=== PATIENT | male | born 1950 | race Caucasian/White ===

== ENCOUNTER 2020-11-10 22:30 | Inpatient (IN) | payer MEDICARE ==
--- NOTE | 2020-11-10 22:44 | ED ---
General Adult HPI - General Stated complaint: Chest Pain Time Seen by Provider: 11/10/20 22:36 Source: patient, EMS Mode of arrival: EMS Limitations: no limitations - History of Present Illness Initial comments: This patient is a 70-year-old man is brought by ambulance to be evaluated for bilateral shoulder pain. The patient relates that the symptoms had come on in the early evening he states around dinnertime. Patient states that it came on after he had been out running errands with a friend. The patient describes the pain as a constant aching, and was accompanied by tingling to the bilateral hands. He did not note any anginal equivalents, no diaphoresis, dyspnea, nausea or vomiting, palpitations or syncope. EMS arrived and gave the patient fentanyl 50 g and he states that the pain had resolved. Onset/Timin -: hour(s) Location: left, right, upper extremity Radiation: non-radiation Quality: aching Consistency: constant, now resolved Improves with: medication Worsens with: none Associated Symptoms: denies other symptoms Treatments Prior to Arrival: other (fentanyl) - Related Data Home Medications Medication Instructions Recorded Confirmed Diphenoxylate HCl/Atropine 1 tab PO Q8H PRN 11/10/20 11/10/20 [Lomotil 2.5-0.025 mg Tablet] Fenofibrate Nanocrystallized 145 mg PO DAILY 11/10/20 11/10/20 [Fenofibrate] Losartan Potassium [Cozaar] 100 mg PO DAILY 11/10/20 11/10/20 Meloxicam [Mobic] 15 mg PO DAILY PRN 11/10/20 11/10/20 Omeprazole Magnesium 20 mg PO DAILY 11/10/20 11/10/20 Potassium Chloride ER [K-Dur 20] 20 meq PO DAILY 11/10/20 11/10/20 Terazosin HCl 5 mg PO DAILY 11/10/20 11/10/20 Tiotropium 2.5 Mcg/Puff [Spiriva 2 puff INHALATION RT-DAILY 11/10/20 11/10/20 Respimat 2.5 Mcg] Allergies Allergy/AdvReac Type Severity Reaction Status Date / Time No Known Allergies Allergy Verified 11/10/20 23:07 Review of Systems ROS Statement: Those systems with pertinent positive or pertinent negative responses have been documented in the HPI. ROS Other: All systems not noted in ROS Statement are negative. Constitutional: Denies: fever, chills Respiratory: Denies: cough, dyspnea Cardiovascular: Denies: chest pain, palpitations, edema, syncope Gastrointestinal: Denies: abdominal pain, nausea, vomiting Genitourinary: Denies: dysuria Musculoskeletal: Denies: back pain Skin: Denies: rash Neurological: Reports: paresthesias. Denies: headache, weakness, numbness Past Medical History Past Medical History: COPD History of Any Multi-Drug Resistant Organisms: None Reported Additional Past Surgical History / Comment(s): Vesectomy Past Psychological History: No Psychological Hx Reported Smoking Status: Current every day smoker Past Alcohol Use History: Daily Past Drug Use History: None Reported General Exam Limitations: no limitations General appearance: alert, in no apparent distress, cachectic Head exam: Present: atraumatic, normocephalic Eye exam: Present: normal appearance ENT exam: Present: normal oropharynx Neck exam: Present: normal inspection, full ROM Respiratory exam: Present: normal lung sounds bilaterally. Absent: respiratory distress, wheezes, rales, rhonchi, stridor, chest wall tenderness, accessory muscle use Cardiovascular Exam: Present: regular rate, normal rhythm, normal heart sounds. Absent: systolic murmur, diastolic murmur, rubs, gallop GI/Abdominal exam: Present: soft. Absent: distended, tenderness, guarding, rebound, rigid, mass Extremities exam: Present: normal inspection, normal capillary refill. Absent: pedal edema, calf tenderness Back exam: Present: normal inspection. Absent: CVA tenderness (R), CVA ten derness (L) Neurological exam: Present: alert Skin exam: Present: warm, dry, intact, normal color. Absent: rash Course Vital Signs 11/10/20 22:36 Temperature 97.6 F Pulse Rate 79 Respiratory 22 Rate Blood Pressure 105/57 O2 Sat by Pulse 97 Oximetry EKG Findings - EKG Comments: EKG Findings:: Possible old septal infarct. - EKG Results: EKG: interpreted by KIMI, sinus rhythm (Rate 80 bpm), normal axis, normal ST/T Medical Decision Making - Medical Decision Making Patient is 70-year-old man brought by ambulance to have evaluation for shoulder pain, bilateral, came on this evening. His initial workup does reveal acute k idney injury and hyperkalemia. Family further stated that he had not been having much to eat since around August. He has not apparently been taking much since his 's . Family also states that he does occasionally drink a moderate amount of matthew but none within the past 4-5 days. The patient's chest x-ray was notable for some atelectasis versus infiltrate, but the patient currently denying cough, fever or chill, dyspnea or chest pain. Patient's d-dimer is borderline, but the kidney function does not support computed tomography scan, will give Lovenox and this test can be rechecked, or patient may have CT when adequately hydrated. Case discussed with Dr. Patel who will admit. - Lab Data Result diagrams: 11/10/20 22:48 11/10/20 22:48 Lab Results 11/10/20 11/10/20 11/10/20 Range/Units 22:48 22:48 22:48 WBC 10.6 (3.8-10.6) k/uL RBC 3.19 L (4.30-5.90) m/uL Hgb 10.7 L (13.0-17.5) gm/dL Hct 33.8 L (39.0-53.0) % MCV 106.2 H (80.0-100.0) fL MCH 33.5 (25.0-35.0) pg MCHC 31.6 (31.0-37.0) g/dL RDW 13.9 (11.5-15.5) % Plt Count 236 (150-450) k/uL MPV 10.2 Neutrophils % 90 % Lymphocytes % 4 % Monocytes % 4 % Eosinophils % 1 % Basophils % 0 % Neutrophils # 9.5 H (1.3-7.7) k/uL Lymphocytes # 0.4 L (1.0-4.8) k/uL Monocytes # 0.5 (0-1.0) k/uL Eosinophils # 0.1 (0-0.7) k/uL Basophils # 0.0 (0-0.2) k/uL Hypochromasia Slight Macrocytosis Moderate PT 11.5 (9.0-12.0) sec INR 1.1 (<1.2) APTT 28.9 (22.0-30.0) sec D-Dimer 0.84 H (<0.60) mg/L FEU Sodium 130 L (137-145) mmol/L Potassium 7.7 H* (3.5-5.1) mmol/L Chloride 109 H (98-107) mmol/L Carbon Dioxide 9 L* (22-30) mmol/L Anion Gap 12 mmol/L BUN 46 H (9-20) mg/dL Creatinine 2.44 H (0.66-1.25) mg/dL Est GFR (CKD-EPI)AfAm 30 (>60 ml/min/1.73 sqM) Est GFR (CKD-EPI)NonAf 26 (>60 ml/min/1.73 sqM) Glucose 102 H (74-99) mg/dL Calcium 9.1 (8.4-10.2) mg/dL Magnesium 1.6 (1.6-2.3) mg/dL Total Bilirubin 0.9 (0.2-1.3) mg/dL AST 55 (17-59) U/L ALT 23 (4-49) U/L Alkaline Phosphatase 62 (38-126) U/L Troponin I (0.000-0.034) ng/mL Total Protein 5.7 L (6.3-8.2) g/dL Albumin 2.7 L (3.5-5.0) g/dL 11/10/20 Range/Units 22:48 WBC (3.8-10.6) k/uL RBC (4.30-5.90) m/uL Hgb (13.0-17.5) gm/dL Hct (39.0-53.0) % MCV (80.0-100.0) fL MCH (25.0-35.0) pg MCHC (31.0-37.0) g/dL RDW (11.5-15.5) % Plt Count (150-450) k/uL MPV Neutrophils % % Lymphocytes % % Monocytes % % Eosinophils % % Basophils % % Neutrophils # (1.3-7.7) k/uL Lymphocytes # (1.0-4.8) k/uL Monocytes # (0-1.0) k/uL Eosinophils # (0-0.7) k/uL Basophils # (0-0.2) k/uL Hypochromasia Macrocytosis PT (9.0-12.0) sec INR (<1.2) APTT (22.0-30.0) sec D-Dimer (<0.60) mg/L FEU Sodium (137-145) mmol/L Potassium (3.5-5.1) mmol/L Chloride (98-107) mmol/L Carbon Dioxide (22-30) mmol/L Anion Gap mmol/L BUN (9-20) mg/dL Creatinine (0.66-1.25) mg/dL Est GFR (CKD-EPI)AfAm (>60 ml/min/1.73 sqM) Est GFR (CKD-EPI)NonAf (>60 ml/min/1.73 sqM) Glucose (74-99) mg/dL Calcium (8.4-10.2) mg/dL Magnesium (1.6-2.3) mg/dL Total Bilirubin (0.2-1.3) mg/dL AST (17-59) U/L ALT (4-49) U/L Alkaline Phosphatase (38-126) U/L Troponin I <0.012 (0.000-0.034) ng/mL Total Protein (6.3-8.2) g/dL Albumin (3.5-5.0) g/dL Disposition Clinical Impression: Hyperkalemia, Acute kidney injury Narrative: Possible pneumonia Disposition: ADMITTED IP TO THIS HOSP Condition: Poor Is patient prescribed a controlled substance at d/c from ED?: No Referrals: Thaddeus Patel DO [Primary Care Provider] - 1-2 days
[2020-11-10 23:08] LABS: Basophils % (A) 0 %; Eosinophils # (A) 0.1 k/uL (0-0.7); Eosinophils % (A) 1 %; HCT 33.8 % (39.0-53.0); HGB 10.7 gm/dL (13.0-17.5); Hypochromasia Slight; Lymphocytes # (A) 0.4 k/uL (1.0-4.8); Lymphocytes % (A) 4 %; MCH 33.5 pg (25.0-35.0); MCHC 31.6 g/dL (31.0-37.0); MCV 106.2 fL (80.0-100.0); Macrocytosis Moderate; Mean Platelet Volume 10.2; Monocytes # (A) 0.5 k/uL (0-1.0); Monocytes % (A) 4 %; Neutrophils # (A) 9.5 k/uL (1.3-7.7); Neutrophils % (A) 90 %; Platelet Count 236 k/uL (150-450); RBC 3.19 m/uL (4.30-5.90); RDW 13.9 % (11.5-15.5); WBC 10.6 k/uL (3.8-10.6)
--- NOTE | 2020-11-10 23:15 | XR ---
EXAMINATION TYPE: XR chest 1V portable DATE OF EXAM: 11/10/2020 COMPARISON: NONE HISTORY: Chest pain TECHNIQUE: Single view FINDINGS: There is thoracolumbar dextroscoliosis. There is increased density at the right cardiac bor derrek that could be right lower lobe infiltrate. There are calcified small granulomata scattered in the lungs. There is no heart failure. There are chest leads. Heart size is normal. Mediastinum is normal . IMPRESSION: Limited exam appears to show some airspace infiltrate and atelectasis in the medial right lower lobe. No heart failure seen.
[2020-11-10 23:23] LABS: INR 1.1 (<1.2); Partial Thromboplastin Time 28.9 sec (22.0-30.0); Prothrombin Time 11.5 sec (9.0-12.0)
[2020-11-10 23:30] LABS: Albumin 2.7 g/dL (3.5-5.0); Calcium 9.1 mg/dL (8.4-10.2); Magnesium 1.6 mg/dL (1.6-2.3); Total Bilirubin 0.9 mg/dL (0.2-1.3); Total Protein 5.7 g/dL (6.3-8.2)
[2020-11-10 23:32] LABS: D-Dimer 0.84 mg/L FEU (<0.60)
[2020-11-10 23:59] LABS: Potassium 7.7 mmol/L (3.5-5.1)
[2020-11-11] MEDS ORDERED: SODIUM CHLORIDE 0.9% 1,000 ML IV STA (00:28)
[2020-11-11] MEDS ORDERED: SODIUM CHLORIDE 0.9% 1,000 ML IV ONE (00:28)
[2020-11-11] MEDS ORDERED: DEXTROSE 50% SYRINGE 50 ML IVP STA ×2 (00:29→11:40)
[2020-11-11] MEDS ORDERED: INSULIN REGULAR 100 UNIT/ML VIAL IV STA (00:29)
[2020-11-11] MEDS ORDERED: SODIUM BICARB 8.4% 50 ML SYR (1 MEQ/ML) IV STA ×2 (00:30→09:34)
[2020-11-11] MEDS ORDERED: CALCIUM GLUCONATE 1 GM in SODIUM CHLORIDE 0.9% 100 ML IVPB ONE ×2 (00:45→11:40)
[2020-11-11] MEDS ORDERED: AZITHROMYCIN 500 MG TAB PO STA (00:46)
[2020-11-11] MEDS ORDERED: SODIUM CHLORIDE 0.9% 500 ML 500 ML IV STA (00:46)
[2020-11-11] MEDS ORDERED: NALOXONE 0.4 MG/ML 1 ML VIAL IV PRN (00:47)
[2020-11-11] MEDS ORDERED: ENOXAPARIN 40 MG/0.4 ML SYRINGE SQ SCH (01:00)
[2020-11-11 01:37] LABS: Appearance,Urine Clear (Clear); Bilirubin,Urine Negative (Negative); Blood,Urine Trace (Negative); Color,Urine Yellow; Glucose,Urine (UA) 1+ (Negative); Hyaline Casts,Urine 18 /lpf (0-2); Ketones,Urine 1+ (Negative); Leukocyte Esterase,Urine Negative (Negative); Mucus,Urine Rare /hpf; Nitrite,Urine Negative (Negative); PH, Urine 5.5 (5.0-8.0); Protein,Urine Negative (Negative); RBC,Urine 7 /hpf (0-5); Specific Gravity,Urine 1.014 (1.001-1.035); Squamous Epithelial Cell,Urine <1 /hpf (0-4); Urobilinogen,Urine <2.0 mg/dL (<2.0); WBC,Urine 1 /hpf (0-5)
[2020-11-11] MEDS ORDERED: ENOXAPARIN 60 MG/0.6 ML SYRINGE SQ SCH (03:00)
[2020-11-11] MEDS ORDERED: FAMOTIDINE 20 MG TAB PO SCH (09:00)
[2020-11-11] MEDS: DEXTROSE 5% IN WATER 1,000 ML with SODIUM BICARB (1 MEQ/ML) 150 ML IV SCH ×2 (10:42→22:03)
--- NOTE | 2020-11-11 11:11 | P.NPCON ---
History of Present Illness - Reason for Consult acute renal failure, hyperkalemia - History of Present Illness Reason for consultation: Acute kidney injury and hyperkalemia History of present illness: Patient is a 70-year-old male seen in renal consultation for acute kidney injury. Patient's creatinine as of June 2020 was 0.8. This admission was elevated at 2.4. Potassium level was also high at 7.7. This was medically treated with IV calcium, IV insulin with D50 as well as sodium bicarb. Repeat potassium level at 3 AM came back at 6.9. Labs from this morning are pending. He's also noted to be severely acidotic with a bicarbonate level of 9. He is currently maintained on normal saline. Patient is not a very reliable historian. He was brought to the hospital with bilateral shoulder pain. However at this time he denies any pain. No chest pain or shortness of breath. No vomiting or diarrhea. Oral intake has been fair. He denies use of nonsteroidals. I do note that he was on potassium supplementation as well as losartan outpatient. Additionally more opaque is also listed on his home medications. No history of diabetes. Denies family history of renal disease. Blood pressure is fairly stable. It was noted to be as low as 89/48 this admission. He has been voiding. No hematuria or dysuria. Vital signs are stable. General: The patient appeared well nourished and normally developed. HEENT: Head exam is unremarkable. Neck is without jugular venous distension. LUNGS: Breath sounds decreased. HEART: Rate and Rhythm are regular. ABDOMEN: Soft, nontender. EXTREMITITES: No edema. Past Medical History Past Medical History: COPD History of Any Multi-Drug Resistant Organisms: None Reported Additional Past Surgical History / Comment(s): Vesectomy Past Psychological History: No Psychological Hx Reported Smoking Status: Current every day smoker Past Alcohol Use History: Daily Past Drug Use History: None Reported Medications and Allergies Home Medications Medication Instructions Recorded Confirmed Type Diphenoxylate HCl/Atropine 1 tab PO Q8H PRN 11/10/20 11/10/20 History [Lomotil 2.5-0.025 mg Tablet] Fenofibrate Nanocrystallized 145 mg PO DAILY 11/10/20 11/10/20 History [Fenofibrate] Losartan Potassium [Cozaar] 100 mg PO DAILY 11/10/20 11/10/20 History Meloxicam [Mobic] 15 mg PO DAILY PRN 11/10/20 11/10/20 History Omeprazole Magnesium 20 mg PO DAILY 11/10/20 11/10/20 History Potassium Chloride ER [K-Dur 20] 20 meq PO DAILY 11/10/20 11/10/20 History Terazosin HCl 5 mg PO DAILY 11/10/20 11/10/20 History Tiotropium 2.5 Mcg/Puff [Spiriva 2 puff INHALATION RT-DAILY 11/10/20 11/10/20 History Respimat 2.5 Mcg] Allergies Allergy/AdvReac Type Severity Reaction Status Date / Time No Known Allergies Allergy Verified 11/10/20 23:07 Physical Exam Vitals: Vital Signs Temp Pulse Pulse Resp BP BP Pulse Ox 11/11/20 08:30 98 F 72 16 116/64 100 11/11/20 04:00 97.7 F 74 18 89/48 94 L 11/11/20 01:30 78 16 114/58 98 11/10/20 22:36 97.6 F 79 22 105/57 97 Intake and Output 11/10/20 11/11/20 11/11/20 22:59 06:59 14:59 Intake Total 475 Balance 475 Intake: Oral 475 Other: Voiding Method Toilet Toilet Urinal Urinal Diaper Diaper # Voids 1 2 # Bowel Movements 1 Weight 48.534 kg 44 kg Results - Lab Results Most recent lab results Calcium 9.1 mg/dL (8.4-10.2) 11/10/20 22:48 Magnesium 1.6 mg/dL (1.6-2.3) 11/10/20 22:48 11/10/20 22:48 11/11/20 03:03 Assessment and Plan Plan: Assessment: 1. Acute kidney injury mostly prerenal secondary to hypovolemia and hypot ension. Creatinine 2.44 on admission. Baseline creatinine from June 2020 near 0.8. No proteinuria on UA. 2. Hyperkalemia secondary to acute kidney injury, metabolic acidosis, potassium supplementation and losartan. 3. Metabolic acidosis secondary to acute kidney injury. 4. Hypovolemic hyponatremia. Plan: Stop normal saline. Start isotonic bicarbonate drip to be run at 1 mL an hour. 2 A of sodium bicarb IV push now. Check renal ultrasound. Check bladder scan to make sure no urinary retention. Check BMP now. Continue to monitor renal function and urine output. Thank you for the consult patient. I will continue to follow the patient with you during his hospital stay.
[2020-11-11 11:16] LABS: Calcium 8.7 mg/dL (8.4-10.2)
[2020-11-11 11:25] LABS: Potassium 6.5 mmol/L (3.5-5.1)
[2020-11-11] MEDS ORDERED: INSULIN REGULAR 100 UNIT/ML VIAL IV ONE (11:40)
[2020-11-11] MEDS ORDERED: THIAMINE 100 MG/ML 2 ML VIAL IM STA (12:14)
[2020-11-11] MEDS ORDERED: LORazepam 2 MG/ML INJ IV PRN ×2 (12:14)
--- NOTE | 2020-11-11 12:15 | US ---
EXAMINATION TYPE: US kidneys/renal and bladder DATE OF EXAM: 11/11/2020 COMPARISON: MRI lumbar spine November 01, 2015 CLINICAL HISTORY: harriet. EXAM MEASUREMENTS: Right Kidney: 11.8 x 4.2 x 4.9 cm Left Kidney: 10.4 x 5.3 x 5.3 cm Right Kidney: No hydronephrosis or masses seen Left Kidney: No hydronephrosis or masses seen Bladder: wnl Bilateral Jets seen: Yes There is no evidence for hydronephrosis at this point in time. No nephrolithiasis is seen. No heather s are identified. The urinary bladder is satisfactorily distended. Bilateral ureteral jets are seen . IMPRESSION: No hydronephrosis is seen bilaterally.
[2020-11-11 12:31] LABS: Glucose,Whole Blood 93 mg/dL (75-99)
--- NOTE | 2020-11-11 14:59 | P.HPIM ---
History of Present Illness H&P Date: 11/11/20 This is 70-year-old gentleman with past medical history of COPD, ongoing nicotine dependence and multiple other medical issues, but into the ER via ambulance with complaints of constant bilateral shoulder pain accompanied by a bilateral hands tingling. Patient's recently. Received fentanyl per EMS with resolution of pain .Denies trauma or syncope. Denies chest pain, palpitations or shortness of breath. Denies lightheadedness dizziness or focal deficits. Denies nausea vomiting or diarrhea. Lab workup reported acute renal failure with hyperkalemia; BUN 46, creatinine 2.44, potassium 7.7. Received IV calcium, IV insulin, D50, sodium bicarb with repeat potassium decreased to 6.9. Son, Dung reported his father has been drinking matthew often and smokes daily for the last few days, poor oral intake since August . Chest x-ray reporting limited exam, some airspace infiltrate and atelectasis in the medial right lower lobe. EKG reported sinus tachycardia with frequent PVCs. Troponin negative times3. UA negative with no proteinuria. Afebrile, normal WBC. Hemoglobin 10.7, MCV 106.2 platelets 236, sodium 130 on admission, now 135. Acidotic, bicarbonate 9. While in the ER,developed hypotension with blood pressure dropping to 89/48. Received IV fluid hydration of normal saline.Poor historian, confused, majority of information obtained from chart, staff and family. Maintaining O2 sats in the 90s on room air. Review of Systems ROS Statement: Those systems with pertinent positive or pertinent negative responses have been documented in the HPI. ROS Other: All systems not noted in ROS Statement are negative. Past Medical History Past Medical History: COPD History of Any Multi-Drug Resistant Organisms: None Reported Additional Past Surgical History / Comment(s): Vesectomy Past Psychological History: No Psychological Hx Reported Smoking Status: Current every day smoker Past Alcohol Use History: Daily Past Drug Use History: None Reported Medications and Allergies Home Medications Medication Instructions Recorded Confirmed Type Diphenoxylate HCl/Atropine 1 tab PO Q8H PRN 11/10/20 11/10/20 History [Lomotil 2.5-0.025 mg Tablet] Fenofibrate Nanocrystallized 145 mg PO DAILY 11/10/20 11/10/20 History [Fenofibrate] Losartan Potassium [Cozaar] 100 mg PO DAILY 11/10/20 11/10/20 History Meloxicam [Mobic] 15 mg PO DAILY PRN 11/10/20 11/10/20 History Omeprazole Magnesium 20 mg PO DAILY 11/10/20 11/10/20 History Potassium Chloride ER [K-Dur 20] 20 meq PO DAILY 11/10/20 11/10/20 History Terazosin HCl 5 mg PO DAILY 11/10/20 11/10/20 History Tiotropium 2.5 Mcg/Puff [Spiriva 2 puff INHALATION RT-DAILY 11/10/20 11/10/20 History Respimat 2.5 Mcg] Allergies Allergy/AdvReac Type Severity Reaction Status Date / Time No Known Allergies Allergy Verified 11/10/20 23:07 Physical Exam Vitals: Vital Signs Temp Pulse Pulse Resp BP BP Pulse Ox 11/11/20 08:30 98 F 72 16 116/64 100 11/11/20 04:00 97.7 F 74 18 89/48 94 L 11/11/20 01:30 78 16 114/58 98 11/10/20 22:36 97.6 F 79 22 105/57 97 Intake and Output 11/10/20 11/11/20 11/11/20 22:59 06:59 14:59 Intake Total 475 Balance 475 Intake: Oral 475 Other: Voiding Method Toilet Toilet Urinal Urinal Diaper Diaper # Voids 1 2 # Bowel Movements 1 Weight 48.534 kg 48.534 kg PHYSICAL EXAM: VITAL SIGNS: As above GENERAL: Sitting up in bed,NAD, confused HEENT: Conjunctivae normal. eyes normal. Oral mucosa dry NECK: No JVD. No thyroid enlargement. No LNs CARDIOVASCULAR: S1, S2 regular.. No murmur RESPIRATION: Breath sounds diminished in the bases. No rhonchi or crackles. No bronchial breathing. ABDOMEN: Soft, nontender . No guarding. no masses palpable. No ascites, No hepatosplenomegaly.Bowel sounds heard. LEGS: No edema. no swelling PSYCHIATRY: Alert and oriented X3, mood and affect normal. NERVOUS SYSTEM: Cranial N 2-12 grossly normal. Diffuse weakness No focal deficits. Strength and sensation grossly intact.. Skin: Warm and dry, no rash Lymphatic system. No LN neck axilla. Results CBC & Chem 7: 11/10/20 22:48 11/11/20 05:45 Labs: Abnormal Lab Results - Last 24 Hours (Table) 11/10/20 11/10/20 11/10/20 Range/Units 22:48 22:48 22:48 RBC 3.19 L (4.30-5.90) m/uL Hgb 10.7 L (13.0-17.5) gm/dL Hct 33.8 L (39.0-53.0) % MCV 106.2 H (80.0-100.0) fL Neutrophils # 9.5 H (1.3-7.7) k/uL Lymphocytes # 0.4 L (1.0-4.8) k/uL D-Dimer 0.84 H (<0.60) mg/L FEU Sodium 130 L (137-145) mmol/L Potassium 7.7 H* (3.5-5.1) mmol/L Chloride 109 H (98-107) mmol/L Carbon Dioxide 9 L* (22-30) mmol/L BUN 46 H (9-20) mg/dL Creatinine 2.44 H (0.66-1.25) mg/dL Glucose 102 H (74-99) mg/dL Total Protein 5.7 L (6.3-8.2) g/dL Albumin 2.7 L (3.5-5.0) g/dL Urine Glucose (UA) (Negative) Urine Ketones (Negative) Urine Blood (Negative) Urine RBC (0-5) /hpf Hyaline Casts (0-2) /lpf Urine Mucus (None) /hpf 11/11/20 11/11/20 Range/Units 01:15 03:03 RBC (4.30-5.90) m/uL Hgb (13.0-17.5) gm/dL Hct (39.0-53.0) % MCV (80.0-100.0) fL Neutrophils # (1.3-7.7) k/uL Lymphocytes # (1.0-4.8) k/uL D-Dimer (<0.60) mg/L FEU Sodium (137-145) mmol/L Potassium 6.9 H* (3.5-5.1) mmol/L Chloride (98-107) mmol/L Carbon Dioxide (22-30) mmol/L BUN (9-20) mg/dL Creatinine (0.66-1.25) mg/dL Glucose (74-99) mg/dL Total Protein (6.3-8.2) g/dL Albumin (3.5-5.0) g/dL Urine Glucose (UA) 1+ H (Negative) Urine Ketones 1+ H (Negative) Urine Blood Trace H (Negative) Urine RBC 7 H (0-5) /hpf Hyaline Casts 18 H (0-2) /lpf Urine Mucus Rare H (None) /hpf Assessment and Plan Assessment: Acute renal failure, prerenal secondary to poor oral intake, hypotension, hypovolemia. Baseline Creatinine 0.8. Hyperkalemia secondary to acute renal failure, medications-losartan, potassium Hyponatremia, hypovolemic Metabolic acidosis secondary to acute renal failure Moderate Protein calorie malnutrition, BMI 19.6 Nicotine dependence Alcohol abuse Grieving, spouse recently . Plan: Continue on current medication regime ,monitoring and symptomatically treatment. Change IV fluids to D5W with bicarbonate. Nicotine patch and CIWA protocol ordered. GI prophylaxis with protonix. DVT prophylaxis with Lovenox. Repeat electrolytes and coagulation profile pending. The impression and plan of care has been dictated as directed. : I performed a history and examination of this patient, discussed the same with the dictator. I agree with the dictator's note ,documented as a scribe. Any additional findings or plans will be noted.
[2020-11-11] MEDS: PANTOPRAZOLE 40 MG/10 ML VIAL IVP SCH (17:19)
[2020-11-11] MEDS: NICOTINE 21MG/24HR PATCH TRANSDERM SCH (17:19)
[2020-11-11] MEDS: THIAMINE 100 MG TAB PO SCH (17:19)
[2020-11-12] MEDS: THIAMINE 100 MG TAB PO SCH ×2 (06:34→18:12)
[2020-11-12] MEDS: ENOXAPARIN 60 MG/0.6 ML SYRINGE SQ SCH (06:36)
[2020-11-12 07:58] LABS: Calcium 7.8 mg/dL (8.4-10.2); Magnesium 1.1 mg/dL (1.6-2.3); Potassium 3.6 mmol/L (3.5-5.1)
[2020-11-12] MEDS ORDERED: FAMOTIDINE 20 MG TAB PO SCH (09:00)
[2020-11-12] MEDS: NICOTINE 21MG/24HR PATCH TRANSDERM SCH (09:06)
[2020-11-12] MEDS: LORazepam 2 MG/ML INJ IV PRN ×5 (09:06→23:25)
[2020-11-12] MEDS: PANTOPRAZOLE 40 MG/10 ML VIAL IVP SCH (09:06)
[2020-11-12] MEDS: MAGNESIUM SULFATE-D5W PMX 1 GM in DEXTROSE/WATER 1 100ML.BAG IVPB SCH ×2 (11:52→13:59)
[2020-11-12] MEDS: DEXTROSE 5% IN WATER 1,000 ML with SODIUM BICARB (1 MEQ/ML) 150 ML IV SCH (11:52)
--- NOTE | 2020-11-12 14:59 | PN ---
PROGRESS NOTE Patient is seen for followup for acute kidney injury. Renal function has improved significantly. Creatinine is down to 1.1 from peak of 2.4 mg/dL. Potassium has improved as well and it is down to 3.6. Patient denies any significant complaints today. EXAMINATION: Blood pressure was 126/68, heart rate 69 per minute, he is afebrile. Examination of the heart S1, S2. Examination of lungs decreased breath sounds at bases. Abdomen is soft, nontender. Examination of lower extremities shows no edema. [employer] exam grossly intact. LABS: Show sodium 130, potassium 3.6, BUN 27, creatinine 1.16, magnesium 1.1. ASSESSMENT: 1. Acute kidney injury, prerenal, currently improved with IV hydration. 2. Hyperkalemia associated with acute kidney injury, metabolic acidosis, potassium supplementation, now improved. 3. Metabolic acidosis secondary to acute kidney injury now resolved. 4. Hypovolemic hyponatremia. PLAN: Encourage increased oral intake. Continue with saline for now. Repeat labs in a.m. MMODL / IJN: [id number] /
--- NOTE | 2020-11-12 16:21 | P.PN ---
Subjective Progress Note Date: 11/12/20 Principal diagnosis: Acute renal failure Acute metabolic/toxic encephalopathy EtOH abuse 70-year-old gentleman with past medical history of COPD, ongoing nicotine dependence and multiple other medical issues, but into the ER via ambulance with complaints of constant bilateral shoulder pain accompanied by a bilateral hands tingling. Patient's recently. Received fentanyl per EMS with resolution of pain .Denies trauma or syncope. Denies chest pain, palpitations or shortness of breath. Denies lightheadedness dizziness or focal deficits. Denies nausea vomiting or diarrhea. Lab workup reported acute renal failure with hyperkalemia; BUN 46, creatinine 2.44, potassium 7.7. Received IV calcium, IV insulin, D50, sodium bicarb with repeat potassium decreased to 6.9. Son, Dung reported his father has been drinking matthew often and smokes daily for the last few days, poor oral intake since August . Chest x-ray reporting limited exam, some airspace infiltrate and atelectasis in the medial right lower lobe. EKG reported sinus tachycardia with frequent PVCs. Troponin negative times3. UA negative with no proteinuria. Afebrile, normal WBC. Hemoglobin 10.7, MCV 106.2 platelets 236, sodium 130 on admission, now 135. Acidotic, bicarbonate 9. While in the ER,developed hypotension with blood pressure dropping to 89/48. Received IV fluid hydration of normal saline.Poor historian, confused, majority of information obtained from chart, staff and family. Maintaining O2 sats in the 90s on room air. Objective - Vital Signs Vital signs: Vital Signs Temp 98.3 F 11/12/20 08:30 Pulse 86 11/12/20 08:30 Resp 22 11/12/20 08:30 BP 109/63 11/12/20 08:30 Pulse Ox 99 11/12/20 08:30 Intake & Output 11/11/20 11/12/20 11/12/20 18:59 06:59 18:59 Intake Total 472 240 Output Total 1000 100 Balance -528 -100 240 Weight 44 kg 46 kg Intake: Oral 472 240 Output: Urine 1000 100 Other: Voiding Method Toilet Toilet Urinal Urinal Diaper Diaper # Voids 2 1 1 # Bowel Movements 1 - Labs CBC & Chem 7: 11/10/20 22:48 11/12/20 07:27 Labs: Abnormal Lab Results - Last 24 Hours (Table) 11/11/20 11/12/20 Range/Units 14:48 07:27 Sodium 130 L (137-145) mmol/L Potassium 5.4 H (3.5-5.1) mmol/L Chloride 97 L (98-107) mmol/L Carbon Dioxide 34 H (22-30) mmol/L BUN 27 H (9-20) mg/dL Glucose 135 H (74-99) mg/dL Calcium 7.8 L (8.4-10.2) mg/dL Magnesium 1.1 L (1.6-2.3) mg/dL Assessment and Plan Assessment: Acute renal failure, prerenal secondary to poor oral intake, hypotension, hypovolemia. Baseline Creatinine 0.8. Hyperkalemia secondary to acute renal failure, medications-losartan, potassium Hyponatremia, hypovolemic Metabolic acidosis secondary to acute renal failure Moderate Protein calorie malnutrition, BMI 19.6 Nicotine dependence Alcohol abuse DVT prophylaxis; SCDs/subcu Lovenox CODE STATUS; full code Patient remains on IV fluids in form of half-normal saline; nephrology on board and recommending to continue strict LUTHER's, daily weights, renal function and electrolytes; avoid nephrotoxins; remains on bicarbonate infusion; nicotine patch and CIWA protocol in place; patient is currently on GI prophylaxis with Protonix
[2020-11-13] MEDS: LORazepam 2 MG/ML INJ IV PRN (00:24)
[2020-11-13] MEDS: DEXTROSE 5% IN WATER 1,000 ML with SODIUM BICARB (1 MEQ/ML) 150 ML IV SCH ×2 (05:55→09:25)
[2020-11-13 06:51] LABS: African American GFR (CKD) >90 (>60 ml/min/1.73 sqM); Blood Urea Nitrogen 33 mg/dL (9-20); Calcium 7.7 mg/dL (8.4-10.2); Chloride 91 mmol/L (98-107); Glucose 105 mg/dL (74-99); Non-African American GFR(CKD) 88 (>60 ml/min/1.73 sqM); Potassium 3.2 mmol/L (3.5-5.1); Sodium 129 mmol/L (137-145)
[2020-11-13 06:58] LABS: Anion Gap -4 mmol/L
[2020-11-13 07:14] LABS: Carbon Dioxide 42 mmol/L (22-30)
[2020-11-13 07:21] LABS: Basophils % (A) 0 %; Eosinophils # (A) 0.1 k/uL (0-0.7); Eosinophils % (A) 1 %; HCT 26.8 % (39.0-53.0); Lymphocytes # (A) 1.2 k/uL (1.0-4.8); Lymphocytes % (A) 25 %; MCH 33.2 pg (25.0-35.0); MCHC 31.9 g/dL (31.0-37.0); Macrocytosis Moderate; Mean Platelet Volume 10.6; Monocytes # (A) 0.3 k/uL (0-1.0); Monocytes % (A) 7 %; Platelet Count 200 k/uL (150-450); RBC 2.57 m/uL (4.30-5.90); RDW 14.6 % (11.5-15.5); WBC 4.7 k/uL (3.8-10.6)
[2020-11-13] MEDS: ENOXAPARIN 60 MG/0.6 ML SYRINGE SQ SCH (07:34)
[2020-11-13] MEDS: THIAMINE 100 MG TAB PO SCH ×2 (07:34→15:54)
[2020-11-13 07:41] LABS: HGB 8.5 gm/dL (13.0-17.5)
[2020-11-13] MEDS ORDERED: Magnesium Replacement Protocol 1 EACH MISC MISCELLANE PRN (09:47)
[2020-11-13] MEDS ORDERED: Potassium Replacement Protocol 1 EACH MISC MISCELLANE PRN (09:47)
[2020-11-13] MEDS: PANTOPRAZOLE 40 MG/10 ML VIAL IVP SCH (09:55)
[2020-11-13] MEDS: POTASSIUM CHLORIDE 10 MEQ in WATER FOR INJECTION 1 100ML.BAG IVPB SCH ×2 (09:55→15:55)
[2020-11-13] MEDS: MAGNESIUM SULFATE-D5W PMX 1 GM in DEXTROSE/WATER 1 100ML.BAG IVPB SCH ×2 (09:55→15:54)
[2020-11-13] MEDS: NICOTINE 21MG/24HR PATCH TRANSDERM SCH (09:55)
--- NOTE | 2020-11-13 14:44 | PN ---
PROGRESS NOTE Patient is seen for followup for acute kidney injury and metabolic acidosis. Patient has been maintained on bicarb drip. This morning he is comfortable, lying in bed. No significant complaints. Renal function has improved with creatinine down to 0.86. PHYSICAL EXAMINATION: Blood pressure was 93/59, later on it was 112/79; heart rate 50 per minute, he is afebrile. Examination of the heart S1, S2. Examination of the lungs, decreased breath sounds at bases. Abdomen is soft, nontender. Examination of lower extremities shows no evidence of edema. DIGITAL EXPERIENCE MANAGER exam grossly intact. Patient is sleeping but arousable. He is moving all four extremities. LAB: Show sodium of 129, potassium 3.2, chloride 91, CO2 is 42, BUN 33, creatinine 0.86. Stool for occult blood was positive. Hemoglobin 8.5 g/dL. ASSESSMENT: 1. Acute kidney injury, prerenal, currently improved with IV hydration. Serum creatinine down to 0.86 from peak of about 2.4. 2. Metabolic alkalosis secondary to IV bicarb. Will discontinue and switch to normal saline. 3. Hypokalemia associated with IV bicarb drip and improved renal function, will replace. 4. Hyperkalemia on initial admission associated with severe metabolic acidosis, acute kidney injury, use of angiotensin receptor blockers prior to admission, now resolved. Potassium is actually low now. 5. Hyponatremia which is hypovolemic and also secondary to hypotonic fluid. We will switch to normal saline. 6. Hypomagnesemia, we will replace. 7. Anemia with positive stool for occult blood. No active bleeding noted at this point. PLAN: Discontinue bicarb drip, switch to normal saline. Replace potassium. Replace magnesium. Repeat labs in a.m. Encourage increased oral intake, particularly protein. Check iron studies if not done recently. MMODL / IJN: [id number] /
[2020-11-13] MEDS: SODIUM CHLORIDE 0.9% 1,000 ML IV SCH (15:55)
--- NOTE | 2020-11-13 16:53 | P.PN ---
Subjective Progress Note Date: 11/13/20 Principal diagnosis: Acute renal failure Acute metabolic/toxic encephalopathy EtOH abuse 70-year-old gentleman with past medical history of COPD, ongoing nicotine dependence and multiple other medical issues, but into the ER via ambulance with complaints of constant bilateral shoulder pain accompanied by a bilateral hands tingling. Patient's recently. Received fentanyl per EMS with resolution of pain .Denies trauma or syncope. Denies chest pain, palpitations or shortness of breath. Denies lightheadedness dizziness or focal deficits. Denies nausea vomiting or diarrhea. Lab workup reported acute renal failure with hyperkalemia; BUN 46, creatinine 2.44, potassium 7.7. Received IV calcium, IV insulin, D50, sodium bicarb with repeat potassium decreased to 6.9. Son, Dung reported his father has been drinking matthew often and smokes daily for the last few days, poor oral intake since August . Chest x-ray reporting limited exam, some airspace infiltrate and atelectasis in the medial right lower lobe. EKG reported sinus tachycardia with frequent PVCs. Troponin negative times3. UA negative with no proteinuria. Afebrile, normal WBC. Hemoglobin 10.7, MCV 106.2 platelets 236, sodium 130 on admission, now 135. Acidotic, bicarbonate 9. While in the ER,developed hypotension with blood pressure dropping to 89/48. Received IV fluid hydration of normal saline.Poor historian, confused, majority of information obtained from chart, staff and family. Maintaining O2 sats in the 90s on room air. 11/13/2020 Patient is seen and evaluated in room at bedside; remains sleepy but easily arousable; denies any specific complaints Vital signs are reviewed revealing a softer blood pressure of 93/59, heart rate of 50, patient remains afebrile labs are reviewed which show a sodium of 129, potassium 2.2, chloride of 91 and CO2 of 42; BUN/creatinine of 33/0.86; hemoglobin is 8.5; stool occult blood is positive Nephrology is following and recommending to discontinue IV bicarbonate due to iatrogenic metabolic alkalosis; potassium is supplemented; we will continue to monitor electrolytes closely; sodium level of 129 this morning- hypovolemic hyponatremia; IV fluids of insertion normal saline We will monitor H&H closely and consult GI for further recommendations; patient is started on IV Protonix Objective - Vital Signs Vital signs: Vital Signs Temp 97.4 F L 11/13/20 08:00 Pulse 50 L 11/13/20 08:00 Resp 22 11/13/20 08:00 BP 112/79 11/13/20 08:00 Pulse Ox 97 11/13/20 08:00 Intake & Output 11/12/20 11/13/20 11/13/20 18:59 06:59 18:59 Intake Total 340 300 Balance 340 300 Weight 46.5 kg Intake: Intake, IV Titration 300 Amount Dextrose 5% in Water 1, 300 000 ml @ 100 mls/hr IV . [id number] with Sodium Bicarb (1 Meq/ml) 150 ml Rx#:[id number] Oral 340 Other: Voiding Method Toilet Urinal Diaper # Voids 1 1 # Bowel Movements 1 - Exam Vital signs are stable. General: The patient appeared well nourished and normally developed. HEENT: Head exam is unremarkable. Neck is without jugular venous distension. LUNGS: Breath sounds decreased. HEART: Rate and Rhythm are regular. ABDOMEN: Soft, nontender. EXTREMITITES: No edema. - Labs CBC & Chem 7: 11/13/20 06:16 11/13/20 06:16 Labs: Abnormal Lab Results - Last 24 Hours (Table) 11/13/20 11/13/20 Range/Units 06:16 06:16 RBC 2.57 L (4.30-5.90) m/uL Hgb 8.5 L D (13.0-17.5) gm/dL Hct 26.8 L (39.0-53.0) % MCV 104.0 H (80.0-100.0) fL Sodium 129 L (137-145) mmol/L Potassium 3.2 L (3.5-5.1) mmol/L Chloride 91 L (98-107) mmol/L Carbon Dioxide 42 H* (22-30) mmol/L BUN 33 H (9-20) mg/dL Glucose 105 H (74-99) mg/dL Calcium 7.7 L (8.4-10.2) mg/dL Assessment and Plan Assessment: Acute renal failure, prerenal secondary to poor oral intake, hypotension, hypo volemia. Baseline Creatinine 0.8. Hyperkalemia secondary to acute renal failure, medications-losartan, potassium Hyponatremia, hypovolemic Metabolic acidosis secondary to acute renal failure Moderate Protein calorie malnutrition, BMI 19.6 Nicotine dependence Alcohol abuse DVT prophylaxis; SCDs/subcu Lovenox CODE STATUS; full code Patient remains on IV fluids in form of half-normal saline; nephrology on board and recommending to continue strict LUTHER's, daily weights, renal function and electrolytes; avoid nephrotoxins; remains on bicarbonate infusion; nicotine patch and CIWA protocol in place; patient is currently on GI prophylaxis with Protonix
[2020-11-13 16:55] LABS: % Iron Saturation 38.22 (15.00-50.00)
[2020-11-14] MEDS: THIAMINE 100 MG TAB PO SCH ×2 (06:10→17:58)
[2020-11-14] MEDS: ENOXAPARIN 60 MG/0.6 ML SYRINGE SQ SCH (06:11)
[2020-11-14 07:05] LABS: Basophils % (A) 0 %; Eosinophils % (A) 1 %; HCT 27.9 % (39.0-53.0); Lymphocytes % (A) 21 %; MCH 33.3 pg (25.0-35.0); MCHC 32.3 g/dL (31.0-37.0); MCV 103.1 fL (80.0-100.0); Macrocytosis Slight; Mean Platelet Volume 9.1; Monocytes # (A) 0.2 k/uL (0-1.0); Monocytes % (A) 4 %; Neutrophils # (A) 3.4 k/uL (1.3-7.7); Neutrophils % (A) 73 %; Platelet Count 219 k/uL (150-450); RBC 2.71 m/uL (4.30-5.90); RDW 14.7 % (11.5-15.5); WBC 4.6 k/uL (3.8-10.6)
[2020-11-14 07:28] LABS: African American GFR (CKD) >90 (>60 ml/min/1.73 sqM); Anion Gap -3 mmol/L; Blood Urea Nitrogen 21 mg/dL (9-20); Calcium 7.7 mg/dL (8.4-10.2); Carbon Dioxide 38 mmol/L (22-30); Chloride 94 mmol/L (98-107); Glucose 91 mg/dL (74-99); Non-African American GFR(CKD) >90 (>60 ml/min/1.73 sqM); Potassium 3.1 mmol/L (3.5-5.1); Sodium 129 mmol/L (137-145)
[2020-11-14] MEDS: NICOTINE 21MG/24HR PATCH TRANSDERM SCH (08:54)
[2020-11-14] MEDS: POTASSIUM CHLORIDE ER 20 MEQ TAB.ER PO SCH ×2 (08:54→10:13)
[2020-11-14] MEDS: PANTOPRAZOLE 40 MG/10 ML VIAL IVP SCH (08:55)
[2020-11-14] MEDS ORDERED: QUEtiapine 25 MG TAB PO PRN (11:32)
--- NOTE | 2020-11-14 11:40 | P.PN ---
Subjective 70-year-old male was admitted secondary to acute renal failure renal failure improved. Patient also being treated for alcohol withdrawals patient is quite a bit confused may be related to excess Ativan which will be held. She is hypovolemic as well today which is being replaced hypomagnesemia magnesium was replaced within normal limits now and patient has a moderate protein calorie malnutrition and patient is quite weak at this time patient related physical therapy and occupational therapy evaluation probably related to placement. Patient evidently had.stools yesterday with drop in hemoglobin because of which gastro-oncology was consulted patient is on daily Protonix at this time. His baseline mental status is not clear at this time. Constitutional: Denied any fatigue denied any fever. Cardio vascular: denied any chest pain, palpitations Gastrointestinal denied any nausea vomiting Pulmonary: Denied any shortness of breath cough Neurologic denied any new focal deficits She is not a reliable historian because of his confusion All inpatient medications were reviewed and appropriate changes in these medications as dictated in the interval history and assessment and plan. Objective - Vital Signs Vital signs: Vital Signs Temp 97.6 F 11/14/20 08:30 Pulse 55 L 11/14/20 08:30 Resp 18 11/14/20 08:30 BP 123/62 11/14/20 08:30 Pulse Ox 98 11/14/20 08:30 Intake & Output 11/13/20 11/14/20 11/14/20 18:59 06:59 18:59 Intake Total 0 200 240 Output Total 150 350 Balance 0 50 -110 Weight 45.5 kg Intake: Intake, IV Titration 200 Amount Sodium Chloride 0.9% 1, 200 000 ml @ 50 mls/hr IV . Q20H [facility] Rx#:[id number] Oral 0 240 Output: Urine 150 350 Other: Voiding Method Toilet Urinal Diaper # Voids 1 2 # Bowel Movements 1 - Exam PHYSICAL EXAMINATION: GENERAL: The patient is alert and oriented x2, not in any acute distress. Well developed, well nourished. Thin built cachectic and significant muscle atrophy HEENT: Pupils are round and equally reacting to light. EOMI. No scleral icterus. No conjunctival pallor. Normocephalic, atraumatic. No pharyngeal erythema. No thyromegaly. CARDIOVASCULAR: S1 and S2 present. No murmurs, rubs, or gallops. PULMONARY: Chest is clear to auscultation, no wheezing or crackles. ABDOMEN: Soft, nontender, nondistended, normoactive bowel sounds. No palpable organomegaly. MUSCULOSKELETAL: No joint swelling or deformity. EXTREMITIES: No cyanosis, clubbing, or pedal edema. NEUROLOGICAL: Gross neurological examination did not reveal any focal deficits. SKIN: No rashes. - Labs CBC & Chem 7: 11/14/20 06:26 11/14/20 06:26 Labs: Abnormal Lab Results - Last 24 Hours (Table) 11/13/20 11/14/20 11/14/20 Range/Units 06:16 06:26 06:26 RBC 2.71 L (4.30-5.90) m/uL Hgb 9.0 L (13.0-17.5) gm/dL Hct 27.9 L (39.0-53.0) % MCV 103.1 H (80.0-100.0) fL Sodium 129 L (137-145) mmol/L Potassium 3.1 L (3.5-5.1) mmol/L Chloride 94 L (98-107) mmol/L Carbon Dioxide 38 H (22-30) mmol/L BUN 21 H (9-20) mg/dL Calcium 7.7 L (8.4-10.2) mg/dL Iron 60 L (65-175) ug/dL TIBC 157 L (228-460) ug/dL Assessment and Plan Plan: - acute renal failure: Secondary to prerenal azotemia improved. Patient had a poor by mouth intake which is basically secondary to depression may benefit from antidepressants. -Confusion: Toxic encephalopathy probably related to medication Ativan will be discontinued. Patient may have some chronic encephalopathy from alcoholism. -Hyponatremia was secondary to half-normal saline patient was switched to normal saline at this time -Metabolic alkalosis iatrogenic secondary to sodium bicarbonate which was discontinued -Moderate protein calorie malnutrition severe cachexia secondary to poor by mouth intake, patient is on the oral and insure supplements -Macrocytic anemia: We will obtain a B12 level may have B12 and folate deficiency -Alcohol abuse patient was treated for alcohol withdrawal at this point of time I don't believe patient is having withdrawals Ativan will be discontinued -Generalized deconditioning related placement in subacute rehabitation PT and OT will be consulted -Nicotine dependence -An episode of possible upper GI bleed presently doesn't have any more episodes of dark stools Lovenox will be held.
[2020-11-14] MEDS: IPRATROPIUM 0.5 MG/2.5 ML NEBU INHALATION SCH ×3 (11:44→20:15)
[2020-11-14] MEDS: SODIUM CHLORIDE 0.9% 1,000 ML IV SCH (12:30)
--- NOTE | 2020-11-14 12:32 | PN ---
PROGRESS NOTE Patient is seen for followup for acute kidney injury. His renal function has improved significantly with IV fluids. Serum creatinine is down to 0.76 mg/dL. Sodium remains on the lower side however, staying at 129 to 130 mEq/L. The patient has not been eating much. This morning he is sitting in a bedside chair. He is confused. He did not know his name. He said he was Quiana. No complaints of nausea, vomiting or abdominal pain or diarrhea. No chest pains or shortness of breath. Patient has had good urine output. PHYSICAL EXAMINATION: On examination today, blood pressure 123/62, heart rate 55 per minute, he is afebrile. Examination of the heart S1, S2. Examination of lungs decreased breath sounds at the bases. Abdomen is soft, nontender. Examination of lower extremities shows no evidence of edema. RIPPLER exam grossly intact. LABS: Show sodium 129, potassium 3.1, serum creatinine 0.76, CO2 is 38, hemoglobin 9.0 g/dL. ASSESSMENT: 1. Acute kidney injury, prerenal, currently resolved. Renal function has improved. We can discontinue the IV fluids and continue to encourage increased oral intake. 2. Mental status changes, confusion. 3. Metabolic alkalosis associated with bicarb drip, currently improved, post discontinuation of bicarb drip. 4. Hyponatremia, initially hypovolemic status post IV fluids in the form of bicarb drip, which was slightly hypotonic. Currently patient is on normal saline. His sodium remains at about 129-130. I will discontinue the saline and patient is encouraged to increase oral intake, particularly protein. Check random cortisol level and TSH if not checked recently. 5. Hypertension, currently stable. 6. Metabolic acidosis, now resolved. PLAN: Discontinue IV fluids. Check cortisol, TSH level if not checked yet. Encourage increased oral intake, particularly protein. MMODL / IJN: [id number] /
[2020-11-14 16:25] LABS: Reticulocyte % 1.6 % (0.5-2.0)
[2020-11-15 02:38] LABS: Folate, Serum 8.3 ng/mL
[2020-11-15 03:56] LABS: Ferritin 733.5 ng/mL (22.0-322.0)
[2020-11-15 06:31] LABS: African American GFR (CKD) >90 (>60 ml/min/1.73 sqM); Anion Gap -3 mmol/L; Blood Urea Nitrogen 20 mg/dL (9-20); Calcium 7.7 mg/dL (8.4-10.2); Carbon Dioxide 34 mmol/L (22-30); Chloride 97 mmol/L (98-107); Glucose 82 mg/dL (74-99); Non-African American GFR(CKD) >90 (>60 ml/min/1.73 sqM); Potassium 3.2 mmol/L (3.5-5.1); Sodium 128 mmol/L (137-145)
[2020-11-15 06:36] LABS: HCT 22.5 % (39.0-53.0); MCH 33.1 pg (25.0-35.0); MCHC 32.2 g/dL (31.0-37.0); MCV 102.8 fL (80.0-100.0); Macrocytosis Slight; Mean Platelet Volume 9.9; Platelet Count 224 k/uL (150-450); RBC 2.19 m/uL (4.30-5.90); WBC 5.1 k/uL (3.8-10.6)
[2020-11-15 06:59] LABS: HGB 7.3 gm/dL (13.0-17.5)
[2020-11-15] MEDS: IPRATROPIUM 0.5 MG/2.5 ML NEBU INHALATION SCH ×4 (07:53→19:25)
[2020-11-15] MEDS: PANTOPRAZOLE 40 MG/10 ML VIAL IVP SCH (08:10)
[2020-11-15] MEDS: FOLIC ACID-VIT B COMPLEX-VIT C 1 CAP PO SCH (08:10)
[2020-11-15] MEDS: DOXAZOSIN 4 MG TAB PO SCH (08:11)
[2020-11-15] MEDS: THIAMINE 100 MG TAB PO SCH ×2 (08:11→16:56)
[2020-11-15] MEDS: FENOFIBRATE 160 MG TAB PO SCH (08:11)
[2020-11-15] MEDS: NICOTINE 21MG/24HR PATCH TRANSDERM SCH (08:11)
[2020-11-15] MEDS ORDERED: POTASSIUM CHLORIDE ER 20 MEQ TAB.ER PO STA (10:56)
[2020-11-15] MEDS ORDERED: LORazepam 2 MG/ML INJ ONE (11:55)
--- NOTE | 2020-11-15 12:00 | P.PN ---
Subjective Progress Note Date: 11/15/20 Principal diagnosis: Anemia, positive occult stool She was seen and examined lying in bed sleeping. He is easily arousable, confused. He denies any abdominal pain, nausea, or vomiting. He denies any rectal bleeding, black tarry stools, or melena. Objective - Vital Signs Vital signs: Vital Signs Temp 97.5 F L 11/15/20 07:51 Pulse 99 11/15/20 08:01 Resp 14 11/15/20 08:01 BP 96/62 11/15/20 07:51 Pulse Ox 98 11/15/20 07:51 Intake & Output 11/14/20 11/15/20 11/15/20 18:59 06:59 18:59 Intake Total 1080 Output Total 350 Balance 730 Weight 45.5 kg Intake: Oral 1080 Output: Urine 350 Other: Voiding Method Toilet Urinal Diaper # Voids 1 # Bowel Movements 0 - Exam General appearance: The patient is alert, oriented to self only, appears in no acute distress. HET: Head is normocephalic and atraumatic. Conjunctiva pink. Sclera anicteric. Neck: Supple without lymphadenopathy. Abdomen: Soft, nontender, nondistended with bowel sounds. No guarding or rigi dity. Extremities: Normal skin color and turgor. No pedal edema Neurological: No focal deficits. Drowsy, but easily arousable. Orientated to self only. - Labs CBC & Chem 7: 11/15/20 05:24 11/15/20 05:24 Labs: Abnormal Lab Results - Last 24 Hours (Table) 11/14/20 11/15/20 11/15/20 Range/Units 06:26 05:24 05:24 RBC 2.19 L (4.30-5.90) m/uL Hgb 7.3 L D (13.0-17.5) gm/dL Hct 22.5 L (39.0-53.0) % MCV 102.8 H (80.0-100.0) fL Sodium 128 L (137-145) mmol/L Potassium 3.2 L (3.5-5.1) mmol/L Chloride 97 L (98-107) mmol/L Carbon Dioxide 34 H (22-30) mmol/L Calcium 7.7 L (8.4-10.2) mg/dL Ferritin 733.5 H (22.0-322.0) ng/mL Assessment and Plan (1) Microcytic hypochromic anemia Narrative/Plan: 70-year-old male presenting for evaluation of shoulder pain, and admitted for treatment of multiple electrolyte abnormalities and elevation in creatinine. Patient has been drinking heavily over the past 5-6 months secondary to the of his . He also drank regularly before her . Patient is currently also being treated for alcohol withdrawal. He was found to have a macrocytic anemia on presentation with a hemoglobin of 9.0. The patient and his son deny any signs or symptoms of GI bleeding but the patient had been using [id number] at home. Stool testing was positive for occult blood. He has a history of colonoscopy in the past but they do not believe he is had EGD. Suspicion is that anemia is multifactorial and secondary to nutritional deficiencies as the patient's son reports he has not been eating over the past few months as well as hematopoietic suppression in the setting of alcohol use, stool testing was positive for blood and cannot rule out a component of GI blood loss. Current Visit: Yes Status: Acute Code(s): D50.9 - IRON DEFICIENCY ANEMIA, UNSPECIFIED SNOMED Code(s): 76177433 (2) Occult blood positive stool Current Visit: Yes Status: Acute Code(s): R19.5 - OTHER FECAL ABNORMALITIES SNOMED Code(s): 36944063 Plan: 1. Supportive care 2. Repeat ammonia level tomorrow morning 3. Daily CBC, transfuse if hemoglobin less than 7 4. Clear liquid diet, NPO after midnight 5. Bowel prep this evening 6. Will proceed with EGD and colonoscopy tomorrow 7. Anemia workup ordered 8. Continue with electrolyte replacement Dr. Staley I agree with the dictator's note, documented as a scribe by Andreia Iraheta.
[2020-11-15] MEDS ORDERED: LORazepam 2 MG/ML INJ IV PRN ×2 (12:23)
[2020-11-15] MEDS ORDERED: LORazepam 2 MG/ML INJ IV STA (12:23)
--- NOTE | 2020-11-15 12:29 | CT ---
EXAMINATION TYPE: CT brain wo con DATE OF EXAM: 11/15/2020 COMPARISON: None HISTORY: 70-year-old male multiple falls, pain, Head trauma TECHNIQUE: Examination was done in axial plane without intravenous contrast. Coronal and sagittal r econstructions performed. CT DLP: 1092.4 mGycm Automated exposure control for dose reduction was used. FINDINGS: There is no evidence of acute intracranial hemorrhage, acute ischemic changes, mass, mass-effect, or extra-axial fluid collection. There is no effacement of cerebral sulci or basal subarachnoid cister ns. There is no midline shift. Escobar-white matter distinction is preserved. [id number] generalized supratentorial volume loss. Mild ventriculomegaly. There is trace mucosal thickening ethmoid air cells. Rightward nasal septal deviation. IMPRESSION: Mild to moderate generalized atrophy. Mild ventriculomegaly probably due to central cerebral atrophy. No acute intracranial abnormality seen.
--- NOTE | 2020-11-15 12:44 | P.PN ---
Subjective 70-year-old male was admitted secondary to acute renal failure renal failure improved. Patient also being treated for alcohol withdrawals patient is quite a bit confused may be related to excess Ativan which will be held. She is hypovolemic as well today which is being replaced hypomagnesemia magnesium was replaced within normal limits now and patient has a moderate protein calorie malnutrition and patient is quite weak at this time patient related physical therapy and occupational therapy evaluation probably related to placement. Patient evidently had.stools yesterday with drop in hemoglobin because of which gastro-oncology was consulted patient is on daily Protonix at this time. His baseline mental status is not clear at this time. 11/15/2020 had an episode where he may have had a seizure patient had an episode of tonic activity, followed by 1 minute loss of consciousness and possible loss of for urinary incontinence and postictal confusion. Patient apparently is more confused than his usual at home. CT of the head is being obtained and patient has been having falls at home. Neurology is being consulted at this time Review of systems: Unable to obtain due to his clinical condition All inpatient medications were reviewed and appropriate changes in these medications as dictated in the interval history and assessment and plan. Objective - Vital Signs Vital signs: Vital Signs Temp 97.5 F L 11/15/20 07:51 Pulse 88 11/15/20 11:20 Resp 14 11/15/20 11:20 BP 96/62 11/15/20 07:51 Pulse Ox 98 11/15/20 07:51 Intake & Output 11/14/20 11/15/20 11/15/20 18:59 06:59 18:59 Intake Total 1080 Output Total 350 Balance 730 Weight 45.5 kg Intake: Oral 1080 Output: Urine 350 Other: Voiding Method Toilet Urinal Diaper # Voids 1 # Bowel Movements 0 - Exam PHYSICAL EXAMINATION: GENERAL: Patient is completely confused. Thin built cachectic and significant muscle atrophy HEENT: Pupils are round and equally reacting to light. EOMI. No scleral icterus. No conjunctival pallor. Normocephalic, atraumatic. No pharyngeal erythema. No thyromegaly. CARDIOVASCULAR: S1 and S2 present. No murmurs, rubs, or gallops. PULMONARY: Chest is clear to auscultation, no wheezing or crackles. ABDOMEN: Soft, nontender, nondistended, normoactive bowel sounds. No palpable organomegaly. MUSCULOSKELETAL: No joint swelling or deformity. EXTREMITIES: No cyanosis, clubbing, or pedal edema. NEUROLOGICAL: Confused unable to assess as not a beta have any focal deficits SKIN: No rashes. - Labs CBC & Chem 7: 11/15/20 05:24 11/15/20 05:24 Labs: Abnormal Lab Results - Last 24 Hours (Table) 11/14/20 11/15/20 11/15/20 Range/Units 06:26 05:24 05:24 RBC 2.19 L (4.30-5.90) m/uL Hgb 7.3 L D (13.0-17.5) gm/dL Hct 22.5 L (39.0-53.0) % MCV 102.8 H (80.0-100.0) fL Sodium 128 L (137-145) mmol/L Potassium 3.2 L (3.5-5.1) mmol/L Chloride 97 L (98-107) mmol/L Carbon Dioxide 34 H (22-30) mmol/L Calcium 7.7 L (8.4-10.2) mg/dL Ferritin 733.5 H (22.0-322.0) ng/mL Assessment and Plan Plan: - acute renal failure: Secondary to prerenal azotemia improved. Patient had a poor by mouth intake which is basically secondary to depression may benefit from antidepressants. -Possibly a seizure: Possibility of alcohol withdrawal seizures low as patient has been in the hospital since . CT of the head revealed and neurology will be consulted EEG will be obtained -Confusion: Toxic encephalopathy probably related to medication Ativan will be discontinued. Patient may have some chronic encephalopathy from alcoholism. -Hyponatremia was secondary to half-normal saline with a competent of SIADH patient is being followed by nephrology -Hypokalemia potassium will be replaced -Metabolic alkalosis iatrogenic secondary to sodium bicarbonate which was dis continued -Moderate protein calorie malnutrition severe cachexia secondary to poor by mouth intake, patient is on the oral and insure supplements -Macrocytic anemia: We will obtain a B12 level may have B12 and folate deficiency -Alcohol abuse patient was treated for alcohol withdrawal at this point of time I don't believe patient is having withdrawals Ativan will be discontinued -Generalized deconditioning related placement in subacute rehabitation PT and OT will be consulted -Nicotine dependence -An episode of possible upper GI bleed presently doesn't have any more episodes of dark stools Lovenox will be held. Patient will undergo EGD and colonoscopy tomorrow
--- NOTE | 2020-11-15 13:17 | P.CONS ---
History of Present Illness - Reason for Consult Consult date: 11/14/20 Anemia, stool positive for occult blood Requesting physician: Thaddeus Patel - Chief Complaint Shoulder pain - History of Present Illness 70-year-old male with multiple medical comorbidities who initially presented for shoulder pain and was found to have elevation in his creatinine and multiple electrolyte abnormalities and admitted further evaluation. In discussion with t he patient and his son who is bedside the patient has been drinking heavily for the past 5-6 months since the passing of . The patient was found to be anemic on presentation with a hemoglobin of 9.0, other laboratory evaluation significant for potassium 3.1, sodium 129, with stool testing positive for occult blood. Patient was somewhat confused and being treated for alcohol withdrawal. He does take Mobic at home. The patient and his son do report a prior colonoscopy but believes it was performed remotely. They're unsure if he is previously had an upper endoscopy. Patient did complain of some vague belly pain but is unable to elucidate the quality or duration of the pain. He denies any black or bloody stools. Review of Systems REVIEW OF SYSTEMS: CONSTITUTIONAL: Denies any fevers, chills, weight change or fatigue. CARDIOVASCULAR: Denies any chest pain, palpitations high or low blood pressures RESPIRATORY: Denies any shortness of breath, hemoptysis or cough. GENITOURINARY: No dysuria or hematuria. MUSCULOSKELETAL: No weakness reported, patient did report shoulder pain on presentation. SKIN: Denies any new rashes or lesions, jaundice or pallor. PSYCHIATRIC: Denies any depression or anxiety, patient has been abusing alcohol since the of his and is somewhat confused. NEUROLOGY: Denies headache, denies any new focal deficits. EARS/NOSE/THROAT: No recent hearing change, congestion, nasal discharge or sore throat. EYES: No pain in eyes, discharge or change in vision. GASTROINTESTINAL: As per HPI. Past Medical History Past Medical History: COPD History of Any Multi-Drug Resistant Organisms: None Reported Additional Past Surgical History / Comment(s): Vesectomy Past Psychological History: No Psychological Hx Reported Smoking Status: Current every day smoker Past Alcohol Use History: Daily Past Drug Use History: None Reported Additional History: Family history: Reviewed with the patient and his son and noncontributory to current medical presentation. Medications and Allergies Home Medications Medication Instructions Recorded Confirmed Type Diphenoxylate HCl/Atropine 1 tab PO Q8H PRN 11/10/20 11/10/20 History [Lomotil 2.5-0.025 mg Tablet] Fenofibrate Nanocrystallized 145 mg PO DAILY 11/10/20 11/10/20 History [Fenofibrate] Losartan Potassium [Cozaar] 100 mg PO DAILY 11/10/20 11/10/20 History Meloxicam [Mobic] 15 mg PO DAILY PRN 11/10/20 11/10/20 History Omeprazole Magnesium 20 mg PO DAILY 11/10/20 11/10/20 History Potassium Chloride ER [K-Dur 20] 20 meq PO DAILY 11/10/20 11/10/20 History Terazosin HCl 5 mg PO DAILY 11/10/20 11/10/20 History Tiotropium 2.5 Mcg/Puff [Spiriva 2 puff INHALATION RT-DAILY 11/10/20 11/10/20 History Respimat 2.5 Mcg] Allergies Allergy/AdvReac Type Severity Reaction Status Date / Time No Known Allergies Allergy Verified 11/10/20 23:07 Physical Exam Vitals: Vital Signs Temp Pulse Pulse Resp BP Pulse Ox 11/14/20 15:46 58 L 16 11/14/20 14:00 97.5 F L 69 18 101/63 95 11/14/20 12:57 97.5 F L 74 18 93/65 96 11/14/20 11:55 55 L 16 11/14/20 11:44 58 L 16 11/14/20 08:30 97.6 F 55 L 18 123/62 98 11/14/20 03:40 67 18 116/69 95 11/14/20 01:30 69 18 11/14/20 00:00 97.6 F 69 18 136/73 100 11/13/20 21:13 94 18 11/13/20 21:10 97.7 F 94 18 119/75 98 11/13/20 15:58 97 F L 81 16 97/57 97 Intake and Output 11/14/20 11/14/20 11/14/20 06:59 14:59 22:59 Intake Total 200 240 Output Total 150 350 Balance 50 -110 Intake: Intake, IV Titration 200 Amount Sodium Chloride 0.9% 1, 200 000 ml @ 50 mls/hr IV . Q20H [facility] Rx#:[id number] Oral 240 Output: Urine 150 350 Other: Voiding Method Toilet Urinal Diaper # Voids 2 Weight 45.5 kg 45.5 kg On physical examination, patient appears comfortable in no apparent distress. HEAD: Normocephalic, atraumatic. EYES: No scleral icterus. No conjunctival injection. MOUTH: No lesions, tongue midline. NECK: Trachea midline, no gross abnormalities. CHEST: Decreased air entry in all lung ball. HEART: S1-S2 appreciate. ABDOMEN: Soft, thin and nontender. Bowel sounds are positive. No organomegaly. No guarding or rigidity. EXTREMITIES: No pedal edema. SKIN: No rashes, no jaundice. NEUROLOGIC: Alert and oriented to person with some tremulousness noted. No focal deficits. Results CBC & Chem 7: 11/15/20 05:24 11/15/20 05:24 Labs: Abnormal Lab Results - Last 24 Hours (Table) 11/13/20 11/14/20 11/14/20 Range/Units 06:16 06:26 06:26 RBC 2.71 L (4.30-5.90) m/uL Hgb 9.0 L (13.0-17.5) gm/dL Hct 27.9 L (39.0-53.0) % MCV 103.1 H (80.0-100.0) fL Sodium 129 L (137-145) mmol/L Potassium 3.1 L (3.5-5.1) mmol/L Chloride 94 L (98-107) mmol/L Carbon Dioxide 38 H (22-30) mmol/L BUN 21 H (9-20) mg/dL Calcium 7.7 L (8.4-10.2) mg/dL Iron 60 L (65-175) ug/dL TIBC 157 L (228-460) ug/dL Chest x-ray: report reviewed Assessment and Plan (1) Microcytic hypochromic anemia Narrative/Plan: 70-year-old male presenting for evaluation of shoulder pain, and admitted for treatment of multiple electrolyte abnormalities and elevation in creatinine. Patient has been drinking heavily over the past 5-6 months secondary to the of his . He also drank regularly before her . Patient is currently also being treated for alcohol withdrawal. He was found to have a macrocytic anemia on presentation with a hemoglobin of 9.0. The patient and his son deny any signs or symptoms of GI bleeding but the patient had been using [id number] at home. Stool testing was positive for occult blood. He has a history of colonoscopy in the past but they do not believe he is had EGD. Suspicion is that anemia is multifactorial and secondary to nutritional def iciencies as the patient's son reports he has not been eating over the past few months as well as hematopoietic suppression in the setting of alcohol use, stool testing was positive for blood and cannot rule out a component of GI blood loss. Current Visit: Yes Status: Acute Code(s): D50.9 - IRON DEFICIENCY ANEMIA, UNSPECIFIED SNOMED Code(s): 51383665 (2) Occult blood positive stool Current Visit: Yes Status: Acute Code(s): R19.5 - OTHER FECAL ABNORMALITIES SNOMED Code(s): 39845733 Plan: Supportive care Okay for diet as tolerated and continue to monitor hemoglobin and hematocrit and transfuse as needed Anemia laboratory evaluation ordered Continue to monitor for signs or symptoms of alcohol withdrawal and treat Continue to monitor BMP, LFTs, CBC Continue electrolyte replacement therapy Can consider EGD and colonoscopy for evaluation of anemia will patient is medically stable Thank you for allowing us to participate in the care of the patient we will continue to follow
[2020-11-15] MEDS: SODIUM CHLORIDE TAB 1 GM TAB PO SCH ×2 (13:33→21:53)
[2020-11-15] MEDS ORDERED: SODIUM CHLORIDE 0.9% 250 ML IV ONE (15:00)
--- NOTE | 2020-11-15 15:11 | P.CNNES ---
History of Present Illness Consult date: 11/15/20 Requesting physician: Rossy Levy Reason for Consult: Seizure History of Present Illness: Patient is a 70-year-old male with history of alcoholism, came to the hospital on 11/10/2020 for bilateral shoulder pain. The symptoms started after he had been out running errands with a friend. He was complaining of constant aching along with tingling to the bilateral hands. Patient was found to have acute kidney injury and hyperkalemia. Patient also has history of alcoholism. It was reported by patient's family that he has suffered from multiple falls, in which he hit his head. He was also noted to be somewhat confused. Today patient was scheduled for CT head for evaluation of falls and altered mental status, when he was placed in the wheelchair to be taken for computed tomography scan, when he suddenly stiffened up and had a grand mal seizure lasting for a minute. He did not bite his tongue. He did lose control of urine. Patient was post ictal for some time. Neurology was consulted for new onset seizure. Patient never had any seizures ever in the past. Patient was on CIWA protocol since arrival to the hospital but was discontinued yesterday. Chest x-ray showed limited exam appears to show some years space infiltrate and atelectasis in the medial right lower lobe. No heart failure. EKG shows sinus tachycardia with frequent PVCs. Patient's blood test on arrival shows WBC 10.6 hemoglobin 10.7 with platelets 236 with elevated MCV 106.2. Patient's potassium was 7.7, sodium 1:30, BUN 46, creatinine 2.44. His sodium, potassium, and renal function all improved with hydration. B12 664, folic acid 8.3, ferritin 733. Stool occult blood positive. Patient's most recent hemoglobin is 7.3 sodium 128, renal functions are now completely normal. TSH and cortisol is normal. Ammonia normal. Patient states he drinks 2-4 beers every day for last 20 years. He states the amount of alcohol intake "depends upon the situation" Review of Systems Denies headache, problem with vision, hoarseness, sore throat, dysphagia. Denies abdominal pain nausea vomiting diarrhea. Denies chest pain. Denies neck or back pain. All other review of systems unremarkable. Patient is slightly confused. Past Medical History Past Medical History: COPD History of Any Multi-Drug Resistant Organisms: None Reported Additional Past Surgical History / Comment(s): Vesectomy Past Psychological History: No Psychological Hx Reported Smoking Status: Current every day smoker Past Alcohol Use History: Daily Past Drug Use History: None Reported Medications and Allergies Home Medications Medication Instructions Recorded Confirmed Type Diphenoxylate HCl/Atropine 1 tab PO Q8H PRN 11/10/20 11/10/20 History [Lomotil 2.5-0.025 mg Tablet] Fenofibrate Nanocrystallized 145 mg PO DAILY 11/10/20 11/10/20 History [Fenofibrate] Potassium Chloride ER [K-Dur 20] 20 meq PO DAILY 11/10/20 11/10/20 History Terazosin HCl 5 mg PO DAILY 11/10/20 11/10/20 History Tiotropium 2.5 Mcg/Puff [Spiriva 2 puff INHALATION RT-DAILY 11/10/20 11/10/20 History Respimat 2.5 Mcg] Folic Acid-Vit B Complex-Vit C 1 each PO DAILY #0 cap 11/17/20 Rx [Nephrocaps] Nicotine 21Mg/24Hr Patch [Habitrol] 1 patch TRANSDERM DAILY #30 patch 11/17/20 Rx Pantoprazole [Protonix] 40 mg PO AC-BID #60 tablet. 11/17/20 Rx Thiamine [Vitamin B-1] 100 mg PO DAILY #30 tab 11/17/20 Rx Allergies Allergy/AdvReac Type Severity Reaction Status Date / Time No Known Allergies Allergy Verified 11/10/20 23:07 Physical Examination - Vital Signs Vital Signs: Vital Signs Temp Pulse Pulse Resp BP Pulse Ox 11/15/20 11:20 88 14 11/15/20 11:12 84 14 11/15/20 08:01 99 14 11/15/20 07:54 98 14 11/15/20 07:51 97.5 F L 87 16 96/62 98 11/15/20 01:13 97.9 F 95 14 126/76 100 11/14/20 22:15 98.0 F 77 14 142/80 94 L 11/14/20 20:28 94 11/14/20 20:16 80 11/14/20 19:52 105 H 18 11/14/20 19:49 98.1 F 105 H 18 124/72 99 11/14/20 15:55 58 L 16 11/14/20 15:46 58 L 16 Intake and Output 11/14/20 11/15/20 11/15/20 22:59 06:59 14:59 Intake Total 240 Balance 240 Intake: Oral 240 Other: Voiding Method Toilet Urinal Diaper # Voids 1 # Bowel Movements 0 On examination patient is an elderly male, in no acute distress. Patient is alert and awake but has slow mentation, prolonged latency time to answer the questions. Patient is very hard of hearing. Patient states is February and the year is 2000. He knows name of the current president Mr. Roque, but does not know the building he is in. He states that he lives in [place], in [place] although I see he lives in [facility]. Patient speaks with low volume, but no aphasia or dysarthria. Attention span, concentration is decreased. On cranial examination pupils are round and reactive to light. Visual ball are full on confrontation, extraocular muscles are intact with no nystagmus. Face is symmetric, tongue protrudes the midline. Palatal elevation and sensation normal. Hearing is moderately decreased, shoulder shrug normal. Facial sensation is normal. On muscle strength testing there is no pronator drift and the strength is normal in arms and legs reflexes are 2 in the upper limbs, 1 at the knees to ankles and plantars downgoing. Sensory touch is equal with no neglect. No ataxia for [id number] testing. Tone and bulk of muscles normal. Gait deferred. There is no obvious bruit, S1 and S2 audible, abdomen soft nontender, chest is clear. Peripheral pulses present. No peripheral edema per Results - Laboratory Findings CBC and BMP: 11/16/20 06:01 11/17/20 08:40 Abnormal Lab Findings: Abnormal Labs 11/10/20 11/10/20 11/10/20 22:48 22:48 22:48 RBC 3.19 L Hgb 10.7 L Hct 33.8 L MCV 106.2 H Neutrophils # 9.5 H Lymphocytes # 0.4 L D-Dimer 0.84 H Sodium 130 L Potassium 7.7 H* Chloride 109 H Carbon Dioxide 9 L* BUN 46 H Creatinine 2.44 H Glucose 102 H Calcium Magnesium Iron TIBC Ferritin Total Protein 5.7 L Albumin 2.7 L Urine Glucose (UA) Urine Ketones Urine Blood Urine RBC Hyaline Casts Urine Mucus 11/11/20 11/11/20 11/11/20 01:15 03:03 05:45 RBC Hgb Hct MCV Neutrophils # Lymphocytes # D-Dimer Sodium 135 L Potassium 6.9 H* 6.5 H* Chloride 115 H Carbon Dioxide 14 L BUN 41 H Creatinine 1.98 H Glucose 64 L Calcium Magnesium Iron TIBC Ferritin Total Protein Albumin Urine Glucose (UA) 1+ H Urine Ketones 1+ H Urine Blood Trace H Urine RBC 7 H Hyaline Casts 18 H Urine Mucus Rare H 11/11/20 11/12/20 11/13/20 14:48 07:27 06:16 RBC Hgb Hct MCV Neutrophils # Lymphocytes # D-Dimer Sodium 130 L 129 L Potassium 5.4 H 3.2 L Chloride 97 L 91 L Carbon Dioxide 34 H 42 H* BUN 27 H 33 H Creatinine Glucose 135 H 105 H Calcium 7.8 L 7.7 L Magnesium 1.1 L Iron TIBC Ferritin Total Protein Albumin Urine Glucose (UA) Urine Ketones Urine Blood Urine RBC Hyaline Casts Urine Mucus 11/13/20 11/13/20 11/14/20 06:16 06:16 06:26 RBC 2.57 L 2.71 L Hgb 8.5 L D 9.0 L Hct 26.8 L 27.9 L MCV 104.0 H 103.1 H Neutrophils # Lymphocytes # D-Dimer Sodium Potassium Chloride Carbon Dioxide BUN Creatinine Glucose Calcium Magnesium Iron 60 L TIBC 157 L Ferritin Total Protein Albumin Urine Glucose (UA) Urine Ketones Urine Blood Urine RBC Hyaline Casts Urine Mucus 11/14/20 11/14/20 11/15/20 06:26 06:26 05:24 RBC Hgb Hct MCV Neutrophils # Lymphocytes # D-Dimer Sodium 129 L 128 L Potassium 3.1 L 3.2 L Chloride 94 L 97 L Carbon Dioxide 38 H 34 H BUN 21 H Creatinine Glucose Calcium 7.7 L 7.7 L Magnesium Iron TIBC Ferritin 733.5 H Total Protein Albumin Urine Glucose (UA) Urine Ketones Urine Blood Urine RBC Hyaline Casts Urine Mucus 11/15/20 05:24 RBC 2.19 L Hgb 7.3 L D Hct 22.5 L MCV 102.8 H Neutrophils # Lymphocytes # D-Dimer Sodium Potassium Chloride Carbon Dioxide BUN Creatinine Glucose Calcium Magnesium Iron TIBC Ferritin Total Protein Albumin Urine Glucose (UA) Urine Ketones Urine Blood Urine RBC Hyaline Casts Urine Mucus Assessment and Plan Assessment: * Seizure, likely due to alcohol withdrawal. Patient has moderate alcoholism for long time, in hospital since last 5 days, probably resulting in alcohol withdrawal seizure. * Hyponatremia sodium 128 * Anemia * Hypocalcemia * Status post acute kidney injury, now resolved. * Stool occult blood positive. Plan: * Patient's seizure is likely due to alcohol withdrawal and electrolyte imbalance. * Continue CIWA protocol. * Suggest treatment of electrolyte imbalance including hyponatremia, hypocalcemia as per IM. * No indication for EEG, as the seizure was likely provoked due to above factors. We will consider checking EEG if patient has any recurrent seizure.
--- NOTE | 2020-11-15 15:37 | PN ---
PROGRESS NOTE Patient is seen for followup for acute kidney injury, which has now resolved. However, patient is also noted to be mildly hyponatremic. He remains confused. He has a sitter currently at bedside. Confusion is better than yesterday. On examination today, blood pressure was 96/62, heart rate 87 per minute. Patient is afebrile. He is euvolemic, with no evidence of edema in bilateral lower extremities. COLORIST PHOTOGRAPHY exam shows patient moving all 4 extremities. He has been confused. Labs show sodium 128, potassium 3.2, chloride 97, BUN 20, creatinine 0.7. Cortisol was 19, TSH 2.2. ASSESSMENT: 1. Acute kidney injury, prerenal, now resolved. 2. Hyponatremia which did not improve with IV fluids, serum sodium staying at 129 to 130. Today it is down to 128. I will discontinue the saline. Serum cortisol and TSH came back within normal limits. Urine osmolality has been sent out. In the meantime, since blood pressure is low, I will add sodium chloride tabs. We will repeat a sodium level again this evening. PLAN: Add sodium chloride tabs. Discontinue IV fluids. Repeat sodium this evening. Encourage increased oral intake, particularly protein, and maintain some degree of free water restriction. MMODL / IJN: [id number] /
[2020-11-15] MEDS ORDERED: PEG 3350-NA SULF,BICARB,CL/KCL 4,000 ML BOTTLE PO ONE (16:00)
[2020-11-15] MEDS ORDERED: LIDOCAINE 1% (10MG/ML) FOR IV START INTRADERMA PRN (17:03)
[2020-11-15] MEDS: LACTATED RINGERS 1,000 ML IV SCH (17:10)
[2020-11-15] MEDS: LORazepam 2 MG/ML INJ IV PRN (22:09)
[2020-11-16] MEDS: IPRATROPIUM 0.5 MG/2.5 ML NEBU INHALATION SCH ×4 (07:29→19:02)
[2020-11-16 08:14] LABS: HCT 23.9 % (39.0-53.0); HGB 7.4 gm/dL (13.0-17.5); Hypochromasia Slight; MCH 33.1 pg (25.0-35.0); MCHC 31.1 g/dL (31.0-37.0); MCV 106.4 fL (80.0-100.0); Macrocytosis Moderate; Mean Platelet Volume 11.5; Platelet Count 246 k/uL (150-450); RBC 2.25 m/uL (4.30-5.90); RDW 15.1 % (11.5-15.5); WBC 4.7 k/uL (3.8-10.6)
[2020-11-16] MEDS ORDERED: PANTOPRAZOLE 40 MG TABLET PO SCH (09:00)
[2020-11-16] MEDS: NICOTINE 21MG/24HR PATCH TRANSDERM SCH (11:04)
[2020-11-16] MEDS: FENOFIBRATE 160 MG TAB PO SCH (11:06)
[2020-11-16] MEDS: THIAMINE 100 MG TAB PO SCH ×2 (11:06→17:50)
[2020-11-16] MEDS: DOXAZOSIN 4 MG TAB PO SCH (11:06)
[2020-11-16] MEDS: SODIUM CHLORIDE TAB 1 GM TAB PO SCH (11:07)
[2020-11-16] MEDS: FOLIC ACID-VIT B COMPLEX-VIT C 1 CAP PO SCH (11:07)
[2020-11-16 11:25] LABS: African American GFR (CKD) 110.8 (60.0-200.0); Anion Gap 3.8 mmol/L (4.00-12.00); BUN/Creat Ratio 21.43 Ratio (12.00-20.00); Carbon Dioxide 28.2 mmol/L (21.6-31.8); Non-African American GFR(CKD) 95.6 (60.0-200.0); Potassium 3.9 mmol/L (3.5-5.5)
[2020-11-16] MEDS ORDERED: SODIUM CHLORIDE 0.9% 500 ML 500 ML IV ONE (12:26)
[2020-11-16] MEDS ORDERED: PROPOFOL 10 MG/ML 20 ML VIAL IV ONE (12:50)
[2020-11-16] MEDS ORDERED: PHENYLEPHRINE 10 MG/ML VIAL ONE (12:50)
[2020-11-16] MEDS ORDERED: LIDOCAINE 1% INJ 10MG/ML (20 ML MDV) ONE (12:50)
[2020-11-16] MEDS ORDERED: MIDAZOLAM 2 MG/2 ML VIAL ONE (12:50)
[2020-11-16] MEDS ORDERED: fentaNYL (PF) 50 MCG/ML 2 ML AMP ONE (12:50)
[2020-11-16] MEDS ORDERED: ePHEDrine SULFATE/0.9% NACL/PF 50 MG/5 ML SYRINGE IV ONE (12:50)
--- NOTE | 2020-11-16 13:30 | PN ---
PROGRESS NOTE Patient is seen for followup for acute kidney injury and hyponatremia. His renal function has improved, status post IV fluids. Sodium improved to 135 today. He is maintained on sodium chloride tabs. Blood pressure has been on the lower side. Patient has been confused. He is requiring a sitter. PHYSICAL EXAMINATION: On examination today, blood pressure was 109/61, heart rate 83 per minute. He is afebrile. EXAMINATION OF THE HEART: S1, S2. EXAMINATION OF THE LUNGS : Bilateral breath sounds are heard. Decreased breath sounds at bases. Abdomen is soft, nontender. Examination of lower extremities shows no evidence of edema. OPERATING SYSTEM PROGRAMMER exam shows patient is confused but moving all 4 extremities. LABS: Labs show sodium 135, potassium 3.9, chloride 103, BUN 15, creatinine 0.7. ASSESSMENT: 1. Acute kidney injury, prerenal, now resolved. 2. Hyponatremia with low blood pressure responded very well to sodium chloride tabs. Currently off of IV fluids. I will discontinue the sodium chloride tabs. 3. Anemia, no active bleeding noted. Stool for occult blood was positive. 4. History of EtOH abuse. PLAN: Discontinue sodium chloride tab. Repeat labs in a.m. Continue off of IV fluids. Encourage increased oral intake. MMODL / IJN: [id number] /
--- NOTE | 2020-11-16 13:32 | P.PCN ---
Date of Procedure: 11/16/20 Description of Procedure: Brief history: 70-year-old male with multiple medical comorbidities who initially presented for shoulder pain and was found to have elevation in his creatinine and multiple electrolyte abnormalities and admitted further evaluation. In discussion with the patient and his son who is bedside the patient has been drinking heavily for the past 5-6 months since the passing of . The patient was found to be anemic on presentation with a hemoglobin of 9.0, other laboratory evaluation significant for potassium 3.1, sodium 129, with stool testing positive for occult blood. Patient was somewhat confused and being treated for alcohol withdrawal. He does take Mobic at home. The patient and his son do report a prior colonoscopy but believes it was performed remotely. They're unsure if he is previously had an upper endoscopy. Patient did complain of some vague belly pain but is unable to elucidate the quality or duration of the pain. He denies any black or bloody stools. Procedure performed: Esophagogastroduodenoscopy with biopsy Colonoscopy Estimated blood loss: Minimal. Preoperative diagnosis: Iron deficiency anemia Anesthesia: MAC Procedure: After informed consent was obtained from the patient was brought into the endoscopy unit and IV sedation was administered by anesthesia under continuous monitoring. Initially upper endoscopy was done. The Olympus GF 190 video endoscope was inserted into the mouth and esophagus intubated without any difficulty and was gradually advanced into the stomach and duodenum and carefully examined. The bulb and second part of the duodenum were significant for a 1 cm cratered ulcer in the duodenal bulb without any active bleeding, old blood or high risk stigmata for bleeding with biopsies of the ulcer edge taken as well as random biopsies of the duodenum. The scope was then withdrawn into the stomach adequately insufflated with air and upon careful examination the antrum and body, cardia and fundus appeared normal, except for some moderate scattered erythema in the antrum and body suggestive of moderate gastritis with biopsies of the antrum and body taken. The scope was then withdrawn into the esophagus. The GE junction was located at 42 cm to the incisors. It appeared regular with no erythema erosions or ulcerations. Rest of the esophagus appeared normal, but was somewhat tortuous suggestive of presbyesophagus. Patient tolerated the procedure well. At this time the patient continued to remain sedation. Initial digital rectal examination was normal. Olympus CF 190 video colonoscope was then inserted into the rectum and gradually advanced to the cecum without any difficulty. Careful examination was performed as the scope was gradually being withdrawn. The prep was fair with liquid stool and some solid components with the colon which was suctioned. The cecum, ascending colon, transverse colon, descending colon, sigmoid colon and rectum appeared normal, with a normal-appearing terminal ileum. A few scattered diverticula were noted throughout the colon. Retro flexion was performed in the rectum and no lesions were noted, low-grade internal hemorrhoids. Patient tolerated the procedure well. Impression: 1. Nonbleeding cratered duodenal ulcer without high-risk stigmata for bleeding. Moderate gastritis. Biopsies of the antrum and body, duodenum and duodenal ulcer. 2. Normal-appearing colon from rectum to cecum with no old blood, active bleeding or pathology to explain anemia. Mild pandiverticulosis. Fair prep. Recommendations: Findings of this examination were discussed with the patient. Okay to resume diet. Okay to resume medications. Continue iron supplementation. Continue to monitor hemoglobin and hematocrit and transfuse as needed. Strict avoidance of NSAID and alcohol. Protonix 40 mg twice daily.
--- NOTE | 2020-11-16 14:01 | P.PN ---
Subjective Progress Note Date: 11/16/20 Patient was seen for a follow-up. Patient is laying comfortably in the bed. Offers no complaints. Denies headache. Denies any problems with vision, no focal symptoms. No further seizures syncope. Sitter was also present. She states patient is confused, slightly unsteady. Objective - Vital Signs Vital signs: Vital Signs Temp 98.2 F 11/16/20 07:38 Pulse 82 11/16/20 11:34 Resp 18 11/16/20 07:38 BP 109/61 11/16/20 07:38 Pulse Ox 98 11/16/20 07:38 Intake & Output 11/15/20 11/16/20 11/16/20 18:59 06:59 18:59 Intake Total 300 Balance 300 Intake: IV 300 Other: # Voids 5 # Bowel Movements 1 - Exam Patient is alert and awake. Speech and language functions are normal. Patient is hard of hearing. Cranial nerves are normal. Muscle strength is normal. No ataxia for [id number] testing. - Labs CBC & Chem 7: 11/16/20 06:01 11/16/20 06:01 Labs: Abnormal Lab Results - Last 24 Hours (Table) 11/15/20 11/16/20 11/16/20 Range/Units 17:55 06:01 06:01 RBC 2.25 L (4.30-5.90) m/uL Hgb 7.4 L (13.0-17.5) gm/dL Hct 23.9 L (39.0-53.0) % MCV 106.4 H (80.0-100.0) fL Sodium 129 L (137-145) mmol/L Anion Gap 3.80 L (4.00-12.00) mmol/L BUN/Creatinine Ratio 21.43 H (12.00-20.00) Ratio Calcium 8.0 L (8.7-10.3) mg/dL Assessment and Plan Assessment: * Seizure, likely due to alcohol withdrawal. Patient has moderate alcoholism for long time, in hospital since last 5 days, probably resulting in alcohol withdrawal seizure. * Hyponatremia sodium 128 * Anemia * Hypocalcemia * Status post acute kidney injury, now resolved. * Stool occult blood positive. Plan: * Patient's seizure is likely due to alcohol withdrawal and electrolyte imbalance. * Continue CIWA protocol. * EGD and colonoscopy showed nonbleeding cratered duodenal ulcer without high risk stigmata for bleeding. Moderate gastritis. Normal appearing colon from rectum to cecum with no old blood. No active bleeding. * Suggest treatment of electrolyte imbalance including hyponatremia, hypocalcemia as per IM. * No indication for EEG, as the seizure was likely provoked due to above factors. We will consider checking EEG if patient has any recurrent seizure. * Recommend patient no driving for 6 months, climbing ladders, operating dangerous machinery or unsupervised swimming. * Neurologically clear.
[2020-11-16] MEDS: LACTATED RINGERS 1,000 ML IV SCH (15:57)
[2020-11-16] MEDS: PANTOPRAZOLE 40 MG TABLET PO SCH (17:50)
--- NOTE | 2020-11-16 19:07 | P.PN ---
Subjective Progress Note Date: 11/16/20 70-year-old male was admitted secondary to acute renal failure renal failure improved. Patient also being treated for alcohol withdrawals patient is quite a bit confused may be related to excess Ativan which will be held. She is hypovolemic as well today which is being replaced hypomagnesemia magnesium was replaced within normal limits now and patient has a moderate protein calorie malnutrition and patient is quite weak at this time patient related physical therapy and occupational therapy evaluation probably related to placement. Patient evidently had.stools yesterday with drop in hemoglobin because of which gastro-oncology was consulted patient is on daily Protonix at this time. His baseline mental status is not clear at this time. 11/15/2020 Patient had an episode where he may have had a seizure patient had an episode of tonic activity, followed by 1 minute loss of consciousness and possible loss of for urinary incontinence and postictal confusion. Patient apparently is more confused than his usual at home. CT of the head is being obtained and patient has been having falls at home. Neurology is being consulted at this time 11/16/2020 Patient is seen and evaluated this morning with sitter at the bedside for safety. No acute overnight issues noted. Patient has a kerlex dressing on the left forearm status post skin tear and having increased edema noted to the left hand. Instructed the nurse to change the dressing and elevate the left extremity. Patient denies any pain or discomfort to the site. Patient awaiting to undergo EGD with colonoscopy with GI today to evaluate for possible GI bleed due to drop in hemoglobin. Hemoglobin today is 7.4 with no active bleeding note d. Patient also evaluated by neurology due to possible seizure activity and CT of the brain was done showing mild to moderated cerebral atrophy with no acute process. Patient has been having multiple falls and increasing weakness at home per daughter. Patient does have an extensive history of alcohol use. Nephrology also following for hyponatremia and was maintained on sodium tablets and sodium today is improved at 135. Patient continues to be confused. Potassium replaced and improved at 3.9 today as well. Review of systems: Unable to obtain due to his clinical condition All inpatient medications were reviewed and appropriate changes in these medications as dictated in the interval history and assessment and plan. Objective - Vital Signs Vital signs: Vital Signs Temp 98.2 F 11/16/20 07:38 Pulse 83 11/16/20 07:38 Resp 18 11/16/20 07:38 BP 109/61 11/16/20 07:38 Pulse Ox 98 11/16/20 07:38 Intake & Output 11/15/20 11/16/20 11/16/20 18:59 06:59 18:59 Other: # Voids 5 # Bowel Movements 1 - Exam GENERAL: Patient is completely confused. Thin built cachectic and significant muscle atrophy HEENT: Pupils are round and equally reacting to light. EOMI. No scleral icterus. No conjunctival pallor. Normocephalic, atraumatic. No pharyngeal erythema. No thyromegaly. CARDIOVASCULAR: S1 and S2 present. No murmurs, rubs, or gallops. PULMONARY: Chest is clear to auscultation, no wheezing or crackles. ABDOMEN: Soft, nontender, nondistended, normoactive bowel sounds. No palpable organomegaly. MUSCULOSKELETAL: No joint swelling or deformity. EXTREMITIES: No cyanosis, clubbing, or pedal edema. left hand with significant swelling noted with a kerlex applied over a skin tear. NEUROLOGICAL: Confused unable to assess, no focal deficits noted SKIN: No rashes. - Labs CBC & Chem 7: 11/16/20 06:01 11/16/20 06:01 Labs: Abnormal Lab Results - Last 24 Hours (Table) 11/15/20 11/16/20 Range/Units 17:55 06:01 RBC 2.25 L (4.30-5.90) m/uL Hgb 7.4 L (13.0-17.5) gm/dL Hct 23.9 L (39.0-53.0) % MCV 106.4 H (80.0-100.0) fL Sodium 129 L (137-145) mmol/L Assessment and Plan Assessment: -acute renal failure: Secondary to prerenal azotemia, improved. Current creatinine is 0.7. Nephrology following. Patient is maintained on sodium tablets. IV fluids discontinued. -Possibly a seizure: Possibility of alcohol withdrawal seizures low as patient has been in the hospital since . CT of the head revealed cerebral atrophy with no acute process. Neurology following and suggests possibly related to acute alcohol withdrawal. -Confusion: Toxic encephalopathy probably related to medication Ativan will be discontinued. Patient may have some chronic encephalopathy from alcoholism. -Hyponatremia was secondary to half-normal saline with a component of SIADH. IV fluids were discontinued and placed on sodium tablets and improved at 135 today. Nephrology following -Hypokalemia potassium will be replaced, improved K+ is 3.9 today -Metabolic alkalosis iatrogenic secondary to sodium bicarbonate which was discontinued -Moderate protein calorie malnutrition severe cachexia secondary to poor by mo uth intake, patient is on the oral and insure supplements -Macrocytic anemia: B12 level within normal limits, may have folate deficiency -Alcohol abuse patient was treated for alcohol withdrawal at this point of time I don't believe patient is having withdrawals Ativan will be discontinued -Generalized deconditioning, patient will need placement in subacute rehabitation, PT/OT following -Nicotine dependence -An episode of possible upper GI bleed presently doesn't have any more episodes of dark stools, Lovenox currently being held. Patient to undergo EGD and colonoscopy with GI today
[2020-11-16] MEDS: LORazepam 2 MG/ML INJ IV PRN (23:05)
[2020-11-17] MEDS: IPRATROPIUM 0.5 MG/2.5 ML NEBU INHALATION SCH ×2 (08:45→12:37)
[2020-11-17] MEDS: PANTOPRAZOLE 40 MG TABLET PO SCH (09:14)
[2020-11-17] MEDS: THIAMINE 100 MG TAB PO SCH (09:15)
[2020-11-17] MEDS: FENOFIBRATE 160 MG TAB PO SCH (09:15)
[2020-11-17] MEDS: FOLIC ACID-VIT B COMPLEX-VIT C 1 CAP PO SCH (09:15)
[2020-11-17] MEDS: DOXAZOSIN 4 MG TAB PO SCH (09:15)
[2020-11-17] MEDS: NICOTINE 21MG/24HR PATCH TRANSDERM SCH (09:15)
[2020-11-17 09:17] LABS: African American GFR (CKD) >90 (>60 ml/min/1.73 sqM); Anion Gap 2 mmol/L; Blood Urea Nitrogen 13 mg/dL (9-20); Calcium 8.1 mg/dL (8.4-10.2); Carbon Dioxide 28 mmol/L (22-30); Chloride 102 mmol/L (98-107); Glucose 69 mg/dL (74-99); Non-African American GFR(CKD) >90 (>60 ml/min/1.73 sqM); Potassium 3.5 mmol/L (3.5-5.1); Sodium 132 mmol/L (137-145)
[2020-11-17 12:10] VITALS: BMI 15.2
[2020-11-17 12:48] VITALS: PULSE 88
--- NOTE | 2020-11-17 13:13 | P.DS ---
Providers Date of admission: 11/11/20 00:47 Expected date of discharge: 11/17/20 Attending physician: Thaddeus Patel Consults: 11/11/20 08:32 Consult Physician Stat Consulting Provider: Kunal Díaz Consult Reason/Comments: renal function Do you want consulting provider notified?: Yes 11/13/20 15:02 Consult Physician Routine Consulting Provider: Bhakti Rudolph Consult Reason/Comments: Anemia/ positive stool OB Do you want consulting provider notified?: Yes 11/15/20 12:10 Consult Physician Routine Consulting Provider: Brook Romero Consult Reason/Comments: Seizure Do you want consulting provider notified?: Yes Primary care physician: Thaddeus Patel Hospital Course: Final Diagnoses: Acute renal failure, prerenal secondary to poor oral intake, hypotension, hypovolemia. Baseline Creatinine 0.8. Resolved. Hyperkalemia secondary to acute renal failure, medications-losartan, potassium Hyponatremia, hypovolemic Metabolic acidosis secondary to acute renal failure, resolved Acute on possible chronic metabolic and toxic encephalopathy multifactorial secondary to poor oral intake, renal failure, alcohol abuse. Dehydration secondary to poor oral intake Moderate Protein calorie malnutrition, BMI 19.6 Nicotine dependence Alcohol abuse Grieving, spouse recently . Possible Seizure, evaluated by neurology with suspected etiology of alcohol withdrawal and electrolyte imbalance. Anemia, EGD and colonoscopy reported nonbleeding cratered duodenal ulcer without high risk stigmata for bleeding. Moderate gastritis. Normal appearing colon from rectum to cecum with no old blood. No active bleeding. Generalized deconditioning, PT recommending subacute rehab, patient and family declined Hospital course:This is 70-year-old gentleman with past medical history of COPD, ongoing nicotine dependence and multiple other medical issues, but into the ER via ambulance with complaints of constant bilateral shoulder pain accompanied by a bilateral hands tingling. Patient's recently. Received fentanyl per EMS with resolution of pain .Denies trauma or syncope. Denies chest pain, palpitations or shortness of breath. Denies lightheadedness dizziness or focal deficits. Denies nausea vomiting or diarrhea. Lab workup reported acute renal failure with hyperkalemia; BUN 46, creatinine 2.44, potassium 7.7. Received IV calcium, IV insulin, D50, sodium bicarb with repeat potassium decreased to 6.9. Son, Dung reported his father has been drinking matthew often and smokes daily for the last few days, poor oral intake since August . Chest x-ray reporting limited exam, some airspace infiltrate and atelectasis in the medial right lower lobe. EKG reported sinus tachycardia with frequent PVCs. Troponin negative times3. UA negative with no proteinuria. Afebrile, normal WBC. Hemoglobin 10.7, MCV 106.2 platelets 236, sodium 130 on admission, now 135. Acidotic, bicarbonate 9. While in the ER,developed hypotension with blood pressure dropping to 89/48. Received IV fluid hydration of normal saline.Poor historian, confused, majority of information obtained from chart, staff and family. Maintaining O2 sats in the 90s on room air. Evaluated by neurology, saturating seizure 2 alcohol withdrawal as well as electrolyte imbalance; no further seizure activity reported.Recommend patient no driving for 6 months, climbing ladders, operating dangerous machinery or unsupervised swimming.EGD and colonoscopy reported nonbleeding cratered duodenal ulcer without high risk stigmata for bleeding. Moderate gastritis. Normal appearing colon from rectum to cecum with no old blood. No active bleeding. Cleared by neurology for discharge. All alcohol has been removed from the home. Discussed protein supplements which patient's son Dung has already stocked the patient's Refrigerator with. Sensorium improving, alert and oriented to person, cooperative, following commands. Reorientated to place.Evaluated by physical therapy and subacute rehab recommended at discharge. Patient declined. Spoke with son Dung, who states he and his sister will take turns at his father's home, attempting to honor his wishes. Home care has been arranged. Patient will be discharged home today pending final DC recommendations and clearance from GI. The impression and plan of care has been dictated as directed. : I performed a history and examination of this patient, discussed the same with the dictator. I agree with the dictator's note ,documented as a scribe. Any additional findings or plans will be noted. Patient Condition at Discharge: Stable Plan - Discharge Summary Discharge Rx Participant: Yes New Discharge Prescriptions: New Nicotine 21Mg/24Hr Patch [Habitrol] 1 patch TRANSDERM DAILY #30 patch Folic Acid-Vit B Complex-Vit C [Nephrocaps] 1 each PO DAILY #0 cap Pantoprazole [Protonix] 40 mg PO AC-BID #60 tablet. Thiamine [Vitamin B-1] 100 mg PO DAILY #30 tab Continue Terazosin HCl 5 mg PO DAILY Potassium Chloride ER [K-Dur 20] 20 meq PO DAILY Diphenoxylate HCl/Atropine [Lomotil 2.5-0.025 mg Tablet] 1 tab PO Q8H PRN PRN Reason: Diarrhea Fenofibrate Nanocrystallized [Fenofibrate] 145 mg PO DAILY Tiotropium 2.5 Mcg/Puff [Spiriva Respimat 2.5 Mcg] 2 puff INHALATION RT-DAILY Discontinued Losartan Potassium [Cozaar] 100 mg PO DAILY Meloxicam [Mobic] 15 mg PO DAILY PRN PRN Reason: Pain Omeprazole Magnesium 20 mg PO DAILY Discharge Medication List Diphenoxylate HCl/Atropine [Lomotil 2.5-0.025 mg Tablet] 1 tab PO Q8H PRN 11/10/20 [History] Fenofibrate Nanocrystallized [Fenofibrate] 145 mg PO DAILY 11/10/20 [History] Potassium Chloride ER [K-Dur 20] 20 meq PO DAILY 11/10/20 [History] Terazosin HCl 5 mg PO DAILY 11/10/20 [History] Tiotropium 2.5 Mcg/Puff [Spiriva Respimat 2.5 Mcg] 2 puff INHALATION RT-DAILY 11/10/20 [History] Folic Acid-Vit B Complex-Vit C [Nephrocaps] 1 each PO DAILY #0 cap 11/17/20 [Rx] Nicotine 21Mg/24Hr Patch [Habitrol] 1 patch TRANSDERM DAILY #30 patch 11/17/20 [Rx] Pantoprazole [Protonix] 40 mg PO AC-BID #60 tablet. 11/17/20 [Rx] Thiamine [Vitamin B-1] 100 mg PO DAILY #30 tab 11/17/20 [Rx] Follow up Appointment(s)/Referral(s): Thaddeus Patel DO [Primary Care Provider] - 1 Week [facility], [NON-STAFF] - Ambulatory/Diagnostic Orders: Complete Blood Count w/diff [LAB.AMB] Time Frame: 3 Days, Location: None Selected Activity/Diet/Wound Care/Special Instructions: no driving for 6 months, climbing ladders, operating dangerous machinery or unsupervised swimming. gomez dcd R/T borderline hypotension, re-eval op at F/U visit with PCP, Boost/protein supplements 3 times a day No etoh Family and patient declining subacute rehab Discharge/Stand Alone Forms: [facility] Home
[2020-11-17 13:36] VITALS: BP 98/56; RESP 16; TEMP 97.6
--- NOTE | 2020-11-17 13:54 | P.PN ---
Subjective Progress Note Date: 11/17/20 Principal diagnosis: Anemia, positive occult stool Patient was seen and examined sitting up in his bed eating lunch. He denies any abdominal pain, nausea, or vomiting. He is status post EGD and colonoscopy yesterday with findings of a duodenal ulcer without bleeding and gastritis. Colonoscopy was unremarkable. Objective - Vital Signs Vital signs: Vital Signs Temp 98.4 F 11/17/20 07:41 Pulse 92 11/17/20 08:56 Resp 18 11/17/20 07:41 BP 95/44 11/17/20 07:41 Pulse Ox 99 11/17/20 07:41 Intake & Output 11/16/20 11/17/20 11/17/20 18:59 06:59 18:59 Intake Total 840 Balance 840 Weight 45.5 kg Intake: IV 300 Oral 540 Other: Voiding Method Toilet Urinal Diaper # Voids 2 1 - Exam General appearance: The patient is alert, oriented to self only, appears in no acute distress. HET: Head is normocephalic and atraumatic. Conjunctiva pink. Sclera anicteric. Neck: Supple without lymphadenopathy. Abdomen: Soft, nontender, nondistended with bowel sounds. No guarding or rigi dity. Extremities: Normal skin color and turgor. No pedal edema Neurological: No focal deficits. Drowsy, but easily arousable. Orientated to self only. - Labs CBC & Chem 7: 11/16/20 06:01 11/17/20 08:40 Labs: Abnormal Lab Results - Last 24 Hours (Table) 11/17/20 Range/Units 08:40 Sodium 132 L (137-145) mmol/L Glucose 69 L (74-99) mg/dL Calcium 8.1 L (8.4-10.2) mg/dL Assessment and Plan (1) Microcytic hypochromic anemia Narrative/Plan: 70-year-old male presenting for evaluation of shoulder pain, and admitted for treatment of multiple electrolyte abnormalities and elevation in creatinine. Patient has been drinking heavily over the past 5-6 months secondary to the of his . He also drank regularly before her . Patient is currently also being treated for alcohol withdrawal. He was found to have a macrocytic anemia on presentation with a hemoglobin of 9.0. The patient and his son deny any signs or symptoms of GI bleeding but the patient had been using [id number] at home. Stool testing was positive for occult blood. He has a history of colonoscopy in the past but they do not believe he is had EGD. Suspicion is that anemia is multifactorial and secondary to nutritional deficiencies as the patient's son reports he has not been eating over the past few months as well as hematopoietic suppression in the setting of alcohol use, stool testing was positive for blood and cannot rule out a component of GI blood loss. Patient is status post EGD and colonoscopy. EGD with findings of antral ulcer and gastritis. Colonoscopy unremarkable with no signs of bleeding. Current Visit: Yes Status: Acute Code(s): D50.9 - IRON DEFICIENCY ANEMIA, UNSPECIFIED SNOMED Code(s): 96327530 (2) Occult blood positive stool Current Visit: Yes Status: Acute Code(s): R19.5 - OTHER FECAL ABNORMALITIES SNOMED Code(s): 83008537 Plan: 1. Supportive care 2. Repeat ammonia level tomorrow morning 3. Daily CBC, transfuse if hemoglobin less than 7 4. Advance diet as tolerated 5. Status post EGD and colonoscopy 7. Anemia workup ordered and reviewed We will continue to follow Dr. Staley I agree with the dictator's note, documented as a scribe by Andreia Iraheta.
[2020-11-17] MEDS ORDERED: FERROUS SULFATE 325 MG TAB PO SCH (17:30)
--- NOTE | 2020-11-17 17:44 | PN ---
PROGRESS NOTE Patient is seen for followup for hyponatremia and acute kidney injury. Renal function has improved, with creatinine now staying at 0.7 to 0.6 mg/dL post IV hydration. Serum sodium had dropped down to around 128, 129. The patient's blood pressure was low. He was started on sodium chloride tabs and his sodium had improved to 135 yesterday. This morning patient is comfortable, awake. He is alert and oriented x3. On examination, blood pressure was 98/56, heart rate 88 per minute. He is afebrile. EXAMINATION OF THE HEART: S1 and S2. EXAMINATION OF LUNGS: Bilateral breath sounds are heard. ABDOMEN: Soft, non-tender. Examination of lower extremities shows no significant edema. PERFORATOR LOADER exam is grossly intact. ASSESSMENT: 1. Labs show hyponatremia associated with decreased osmolar intake, improved with sodium chloride administration. Patient is encouraged to maintain good oral intake, particularly protein, and maintain some degree of free water restriction. Followup as outpatient. We can discontinue the sodium chloride tabs. 2. Anemia with no active bleeding noted. Stool was positive for occult blood. 3. History of EtOH abuse. PLAN: Maintain off of sodium chloride tabs. Monitor electrolytes as outpatient. Maintain good oral intake, particularly protein, and maintain some degree of free water restriction. MMODL / IJN: [id number] /
[2020-11-18] MEDS ORDERED: SODIUM CHLORIDE TAB 1 GM TAB PO SCH (09:00)
== END 2020-11-17 14:34 | disposition home health service (06) | DRG 682 ==
LOC: EC 22:30 → 3SCARD 11-11 00:47 → 4SSUR 11-14 22:15
PROVIDERS: ADMIT Family Medicine; ATTEND Family Medicine
PROC: 0DJD8ZZ Inspection of Lower Intestinal Tract, Via Natural or Artificial Opening Endoscopic (ICD-10-PCS; 2020-11-16)
PROC: 0DB98ZX Excision of Duodenum, Via Natural or Artificial Opening Endoscopic, Diagnostic (ICD-10-PCS; principal; 2020-11-16 12:30)
PROC: 0DB78ZX Excision of Stomach, Pylorus, Via Natural or Artificial Opening Endoscopic, Diagnostic (ICD-10-PCS; 2020-11-16 12:30)
DX: N17.9 Acute kidney failure, unspecified (principal); G92 Toxic encephalopathy; E43 Unspecified severe protein-calorie malnutrition; E22.2 Syndrome of inappropriate secretion of antidiuretic hormone; R64 Cachexia; E87.4 Mixed disorder of acid-base balance; Z68.1 Body mass index [BMI] 19.9 or less, adult; F10.230 Alcohol dependence with withdrawal, uncomplicated; J98.11 Atelectasis; G31.2 Degeneration of nervous system due to alcohol; E83.51 Hypocalcemia; K26.9 Duodenal ulcer, unspecified as acute or chronic, without hemorrhage or perforation; I95.9 Hypotension, unspecified; R56.9 Unspecified convulsions; J44.9 Chronic obstructive pulmonary disease, unspecified; F17.200 Nicotine dependence, unspecified, uncomplicated; E87.5 Hyperkalemia; E86.0 Dehydration; I49.3 Ventricular premature depolarization; R00.0 Tachycardia, unspecified; F43.20 Adjustment disorder, unspecified; E86.1 Hypovolemia; D50.9 Iron deficiency anemia, unspecified; R29.6 Repeated falls; K29.70 Gastritis, unspecified, without bleeding; K57.90 Diverticulosis of intestine, part unspecified, without perforation or abscess without bleeding; E87.6 Hypokalemia; E83.42 Hypomagnesemia; D53.9 Nutritional anemia, unspecified; I10 Essential (primary) hypertension; R19.5 Other fecal abnormalities; K25.9 Gastric ulcer, unspecified as acute or chronic, without hemorrhage or perforation; T42.4X5A Adverse effect of benzodiazepines, initial encounter; Z71.3 Dietary counseling and surveillance; Z79.899 Other long term (current) drug therapy; Z79.1 Long term (current) use of non-steroidal anti-inflammatories (NSAID); Z98.52 Vasectomy status
CPT/HCPCS: 36415; 43239; 45378; 70450; 71045; 76770; 80048; 80053; 81001; 82140; 82272; 82533; 82607; 82728; 82746; 83540; 83550; 83735; 83935; 84132; 84295; 84443; 84484; 85025; 85027; 85045; 85379; 85610; 85730; 88305; 93005; 94640; 96361; 96365; 96372; 96375; 99285

== ENCOUNTER 2022-08-14 19:46 | Inpatient (IN) | payer MEDICARE ==
[2022-08-14] MEDS ORDERED: SODIUM CHLORIDE 0.9% 1,000 ML IV STA (21:26)
--- NOTE | 2022-08-14 21:43 | XR ---
EXAMINATION TYPE: XR chest 2V DATE OF EXAM: 08/14/2022 COMPARISON: NONE HISTORY: Chest pain TECHNIQUE: 2 views FINDINGS: There is no heart failure nor confluent pneumonic infiltrate. Costophrenic angles are clear . There are calcified granulomata in the lungs. No pleural effusion. Bony thorax is intact. There is a thoracolumbar dextroscoliosis. IMPRESSION: Old granulomatous disease. No active cardiopulmonary disease. Normal heart. No change.
[2022-08-14] MEDS ORDERED: LORazepam 1 MG TAB PO PRN ×2 (21:49)
[2022-08-14] MEDS ORDERED: LORazepam 0.5 MG TAB PO PRN (21:49)
[2022-08-14] MEDS ORDERED: THIAMINE 100 MG/ML 2 ML VIAL IM STA (21:49)
[2022-08-14] MEDS ORDERED: fentaNYL (PF) 50 MCG/ML 2 ML AMP IVP STA (21:50)
--- NOTE | 2022-08-14 21:52 | XR ---
EXAMINATION TYPE: XR thoracic spine 2V DATE OF EXAM: 08/14/2022 COMPARISON: NONE HISTORY: Pain TECHNIQUE: 3 views FINDINGS: There is a thoracolumbar dextroscoliosis. There is degenerative spurring throughout the tho racic spine. No compression fracture. No paraspinal mass. IMPRESSION: Focal lumbar dextroscoliosis. No fracture seen.
--- NOTE | 2022-08-14 21:53 | XR ---
EXAMINATION TYPE: XR lumbosacral spine min 4V DATE OF EXAM: 08/14/2022 COMPARISON: NONE HISTORY: Abdominal pain TECHNIQUE: 3 views FINDINGS: There is thoracolumbar dextroscoliotic deformity. There is degenerative disc space narrowin g throughout the lumbar spine with spurring of the endplates. No compression fracture. Sacroiliac olivia nts are intact. IMPRESSION: Spondylotic changes. Dextroscoliosis. No fracture seen.
[2022-08-14 22:02] LABS: Basophils % (A) 0 %; Eosinophils # (A) 0.2 k/uL (0-0.7); Eosinophils % (A) 2 %; HGB 10.8 gm/dL (13.0-17.5); Hypochromasia Moderate; Lymphocytes # (A) 1.1 k/uL (1.0-4.8); Lymphocytes % (A) 12 %; MCH 33.2 pg (25.0-35.0); MCHC 31.8 g/dL (31.0-37.0); MCV 104.5 fL (80.0-100.0); Macrocytosis Slight; Mean Platelet Volume 10.9; Monocytes # (A) 0.3 k/uL (0-1.0); Monocytes % (A) 4 %; Neutrophils # (A) 7.4 k/uL (1.3-7.7); Neutrophils % (A) 81 %; Platelet Count 462 k/uL (150-450); RBC 3.25 m/uL (4.30-5.90); RDW 14.1 % (11.5-15.5); WBC 9.1 k/uL (3.8-10.6)
[2022-08-14 22:10] LABS: Albumin 3.6 g/dL (3.5-5.0); Calcium 9.9 mg/dL (8.4-10.2); Total Bilirubin 0.8 mg/dL (0.2-1.3); Total Protein 6.9 g/dL (6.3-8.2)
[2022-08-14 22:28] LABS: Potassium 6.5 mmol/L (3.5-5.1)
--- NOTE | 2022-08-14 23:14 | CT ---
EXAMINATION TYPE: CT abdomen pelvis w con DATE OF EXAM: 08/14/2022 COMPARISON: None HISTORY: Upper Abd pain CT DLP: 499.2 mGycm Automated exposure control for dose reduction was used. CONTRAST: Performed with IV Contrast, patient injected with 80 mL of Isovue 370. Images obtained from the diaphragm to the floor of the pelvis with the IV contrast. Lung bases are clear of infiltrate. No pleural effusion. Heart size is normal. No pericardial effusio n. Liver spleen and stomach pancreas appear intact. The bowel gas are not dilated. Gallbladder appears n ormal. There is no adrenal mass. Kidneys show satisfactory contrast opacification. There is no hydronephrosi s. Ureters are not dilated. No retroperitoneal adenopathy. Bladder distends smoothly. No inguinal her olga. No free fluid in the pelvis. No pelvic mass. There is no mesenteric edema. No ascites or free air. No sign of a bowel obstruction. Abdominal aorta is atheromatous. Aorta measures 2.6 cm. There is thoracolumbar dextroscoliosis deformity. There is m ultilevel lumbar spondylotic changes. The hip joints are intact. Bony pelvis is intact. Sacroiliac tricia ints are intact. Delayed images show normal renal excretion. No sign of obstruction. There are clips apparently from sigmoid colon surgery. IMPRESSION: Atherosclerotic vascular disease. No acute abnormality in the abdomen and pelvis. Appendix not defini tely seen. No sign of thickened appendix. Scoliotic deformity.
[2022-08-14] MEDS ORDERED: ALBUTEROL NEB (CONC) 2.5 MG/0.5 ML INHALATION ONE (23:52)
[2022-08-14] MEDS ORDERED: SODIUM BICARB 8.4% 50 ML SYR (1 MEQ/ML) IV ONE (23:52)
[2022-08-14] MEDS ORDERED: DEXTROSE 50% SYRINGE 50 ML IVP ONE (23:52)
[2022-08-14] MEDS ORDERED: INSULIN REGULAR 100 UNIT/ML VIAL (IV) IV ONE (23:52)
[2022-08-15] MEDS ORDERED: NALOXONE 0.4 MG/ML 1 ML VIAL IV PRN (00:03)
--- NOTE | 2022-08-15 00:28 | ED ---
Abdominal Pain HPI - General Source: patient Mode of arrival: ambulatory Limitations: no limitations <Mary Russell - Last Filed: 08/15/22 00:33> <Courtney Hadley - Last Filed: 08/16/22 23:57> - General Chief Complaint: Abdominal Pain Stated Complaint: Abd pain Time Seen by Provider: 08/14/22 21:01 - History of Present Illness Initial Comments: Patient is a 72-year-old male with a past medical history of COPD and early dementia who presents to the emergency department with a chief complaint of abdominal pain for 2 weeks. Patient's son is at bedside and helps provide history. Patient reports upper middle abdominal pain which is consistent in nature. Describes it as an aching without radiation. Denies nausea and vomiting. Also reports 2-5 episodes of diarrhea all week, nonbloody. No recent antibiotic use. Denies history of c. diff. Son states he has been more weak with little appetite. Denies fever, chills, burning with urination, blood in urine. Patient also complains of back pain due to fall about 2 weeks ago. Patient states he tripped in the bathroom. The fall was witnessed by patient's son. Patient did not has head. No loss of consciousness. He does not use with thinners. Reports upper and middle back pain. Denies numbness and tingling in the legs and groin region. Denies leg weakness. Denies loss of bowel or bladder function. Patient denies alcohol use however his son states patient drinks multiple times a week, unknown amount of liquor. Denies history of withdrawal seizures and delirium tremens. (Mary Russell) - Related Data Home Medications Medication Instructions Recorded Confirmed Diphenoxylate HCl/Atropine 1 tab PO DAILY 11/10/20 08/15/22 [Lomotil 2.5-0.025 mg Tablet] Fenofibrate Nanocrystallized 145 mg PO DAILY 11/10/20 08/15/22 [Fenofibrate] Potassium Chloride ER [K-Dur 20] 20 meq PO DAILY 11/10/20 08/15/22 Tiotropium 2.5 Mcg/Puff [Spiriva 2 puff INHALATION RT-DAILY 11/10/20 08/15/22 Respimat 2.5 Mcg] Rydojyhejrmqio-CH-Rehoeyuike 1 tab PO DAILY 08/15/22 08/15/22 [Folbic] Donepezil [Aricept] 10 mg PO HS 08/15/22 08/15/22 Losartan Potassium 100 mg PO DAILY 08/15/22 08/15/22 Previous Rx's Medication Instructions Recorded Thiamine [Vitamin B-1] 100 mg PO DAILY #30 tab 11/17/20 Allergies Allergy/AdvReac Type Severity Reaction Status Date / Time No Known Allergies Allergy Verified 08/14/22 20:54 Review of Systems ROS Other: All systems not noted in ROS Statement are negative. <Mary Russell - Last Filed: 08/15/22 00:33> ROS Other: All systems not noted in ROS Statement are negative. <Courtney Hadley - Last Filed: 08/16/22 23:57> ROS Statement: Those systems with pertinent positive or pertinent negative responses have been documented in the HPI. Past Medical History Past Medical History: COPD History of Any Multi-Drug Resistant Organisms: None Reported Additional Past Surgical History / Comment(s): Vesectomy Past Psychological History: No Psychological Hx Reported Smoking Status: Current every day smoker Past Alcohol Use History: Daily Past Drug Use History: None Reported <Mary Russell - Last Filed: 08/15/22 00:33> General Exam Limitations: no limitations General appearance: alert, in no apparent distress Head exam: Present: atraumatic, normocephalic, normal inspection Eye exam: Present: normal appearance, PERRL, EOMI. Absent: scleral icterus, conjunctival injection, periorbital swelling ENT exam: Present: mucous membranes moist Neck exam: Present: normal inspection, full ROM. Absent: tenderness Respiratory exam: Present: normal lung sounds bilaterally. Absent: respiratory distress, wheezes, rales, rhonchi, stridor Cardiovascular Exam: Present: normal rhythm, tachycardia, normal heart sounds. Absent: regular rate, systolic murmur, diastolic murmur, rubs, gallop, clicks GI/Abdominal exam: Present: soft, normal bowel sounds. Absent: distended, tenderness, guarding, rebound, rigid Back exam: Present: vertebral tenderness (thoracic and lumbar). Absent: paraspinal tenderness Neurological exam: Present: alert, oriented X3, CN II-XII intact Psychiatric exam: Present: normal affect, normal mood Skin exam: Present: warm, dry, intact, normal color. Absent: rash <Mary Russell - Last Filed: 08/15/22 00:33> Course Vital Signs 08/14/22 08/14/22 08/15/22 20:52 22:25 00:07 Temperature 98 F Pulse Rate 117 H 83 76 Respiratory 20 16 Rate Blood Pressure 86/56 108/69 O2 Sat by Pulse 99 98 Oximetry 08/15/22 08/15/22 08/15/22 00:13 02:47 04:43 Temperature Pulse Rate 78 72 Respiratory 16 16 Rate Blood Pressure 117/63 O2 Sat by Pulse 97 Oximetry 08/15/22 08/15/22 10:15 15:00 Temperature 98.4 F Pulse Rate 84 71 Respiratory 16 18 Rate Blood Pressure 124/63 109/63 O2 Sat by Pulse 98 100 Oximetry Medical Decision Making - Lab Data Result diagrams: 08/14/22 21:29 08/14/22 21:29 <Mary Russell - Last Filed: 08/15/22 00:33> - Lab Data Result diagrams: 08/16/22 15:08 08/16/22 05:38 <Courtney Hadley - Last Filed: 08/16/22 23:57> - Medical Decision Making This is a 72-year-old presenting with abdominal pain and diarrhea. Patient well- appearing and in no apparent distress. Hypotensive at 86/56. Tachycardic at 117. Afebrile. The abdomen is soft and nontender. Laboratory studies obtained. There is no leukocytosis. Hemoglobin low at 10.8, consistent with patient's chronic anemia. There is hyperkalemia at 6.5. His acute kidney injury, creatinine 1.63, double from patient's baseline. CT of the abdomen and pelvis with contrast is negative for acute process. X-ray of the thoracic and lumbar spine is negative for fr acture. EKG obtained for hyperkalemia which shows J-point elevation in leads 2, 3, aVF. No evidence of acute ischemia. Hyperkalemia cocktail given. Patient has no chest pain or shortness of breath. Fluid bolus given with resolution of tachycardia and hypotension. Stool culture, C. diff, occult blood ordered however patient could not give sample. Results discussed with patient and son. Patient be admitted for hyperkalemia in [facility]. Case discussed with Maria Esther with [facility] who accepts admission. Patient admitted in stable condition. Dr. Hadley is my attending. (Mary Russell) - Lab Data Lab Results 08/14/22 08/14/22 08/14/22 Range/Units 21:29 21:29 21:29 WBC 9.1 (3.8-10.6) k/uL RBC 3.25 L (4.30-5.90) m/uL Hgb 10.8 L (13.0-17.5) gm/dL Hct 34.0 L (39.0-53.0) % MCV 104.5 H (80.0-100.0) fL MCH 33.2 (25.0-35.0) pg MCHC 31.8 (31.0-37.0) g/dL RDW 14.1 (11.5-15.5) % Plt Count 462 H (150-450) k/uL MPV 10.9 Neutrophils % 81 % Lymphocytes % 12 % Monocytes % 4 % Eosinophils % 2 % Basophils % 0 % Neutrophils # 7.4 (1.3-7.7) k/uL Lymphocytes # 1.1 (1.0-4.8) k/uL Monocytes # 0.3 (0-1.0) k/uL Eosinophils # 0.2 (0-0.7) k/uL Basophils # 0.0 (0-0.2) k/uL Hypochromasia Moderate Macrocytosis Slight Sodium 129 L (137-145) mmol/L Potassium 6.5 H* 6.6 H* (3.5-5.1) mmol/L Chloride 99 (98-107) mmol/L Carbon Dioxide 18 L (22-30) mmol/L Anion Gap 12 mmol/L BUN 33 H (9-20) mg/dL Creatinine 1.63 H (0.66-1.25) mg/dL Est GFR (CKD-EPI)AfAm 48 (>60 ml/min/1.73 sqM) Est GFR (CKD-EPI)NonAf 41 (>60 ml/min/1.73 sqM) Glucose 137 H (74-99) mg/dL Calcium 9.9 (8.4-10.2) mg/dL Total Bilirubin 0.8 (0.2-1.3) mg/dL AST 31 (17-59) U/L ALT 15 (4-49) U/L Alkaline Phosphatase 46 (38-126) U/L Total Protein 6.9 (6.3-8.2) g/dL Albumin 3.6 (3.5-5.0) g/dL Amylase 56 (30-110) U/L Lipase 166 (23-300) U/L - EKG Data EKG Comments: EKG taken at 23:21 Sinus rhythm, J-point elevation in leads 2, 3, aVF. No evidence of acute ischemia Ventricular rate 77 VT interval 109 QRS duration in 83 QTc 363 (Mary Russell) Critical Care Time Critical Care Time: Yes <Courtney Hadley - Last Filed: 08/16/22 23:57> Critical Care Time: 35 minutes (Courtney Hadley) Disposition Time of Disposition: 00:33 <Mary Russell - Last Filed: 08/15/22 00:33> <Courtney Hadley - Last Filed: 08/16/22 23:57> Clinical Impression: Upper abdominal pain, Diarrhea, Hypotension, Tachycardia, Hyperkalemia, NEVAEH (acute kidney injury) Disposition: ADMITTED IP TO THIS HOSP Condition: Fair
[2022-08-15] MEDS: SODIUM CHLORIDE 0.9% 1,000 ML IV SCH ×3 (01:10→22:20)
[2022-08-15 03:07] LABS: Appearance,Urine Clear (Clear); Bilirubin,Urine Negative (Negative); Blood,Urine Negative (Negative); Color,Urine Light Yellow; Glucose,Urine (UA) 2+ (Negative); Ketones,Urine Negative (Negative); Leukocyte Esterase,Urine Negative (Negative); Nitrite,Urine Negative (Negative); PH, Urine 5.5 (5.0-8.0); Protein,Urine Negative (Negative); Urobilinogen,Urine <2.0 mg/dL (<2.0)
[2022-08-15 07:40] LABS: Calcium 8.3 mg/dL (8.4-10.2); Magnesium 1.6 mg/dL (1.6-2.3); Potassium 4.7 mmol/L (3.5-5.1)
--- NOTE | 2022-08-15 09:30 | P.NPCON ---
History of Present Illness - Reason for Consult acute renal failure, hyperkalemia - History of Present Illness Reason for consultation: Acute kidney injury and hyperkalemia History of present illness: Patient is a 72-year-old male seen in consultation for acute kidney injury and hyperkalemia. Patient's baseline creatinine is near 1 from January 2022 and was elevated at 1.63 on admission and is 1.43 today. Patient's potassium was elevated at 6.6 and this was medically treated with albuterol, IV insulin as well as IV bicarb. Potassium level this morning was 4.7. Patient's sodium level is low at 127 and was 129 on admission. Blood pressure is stable. Patient presented to the hospital with abdominal pain going on for about 2 weeks. Patient is not a very reliable historian but he denies any nausea vomiting. Does have bowel movements. Patient states he's been having pain from the neck down to his abdomen. He denies chest pain or shortness of breath. Patient is not sure of the medication he takes. States he may be taking Aleve for back pain. I don't see any NSAIDs and his home medication list. I do see potassium supplementation and his home medication list which is currently held. No history of diabetes. CT of the abdomen and pelvis showed no evidence of hydronephrosis. No acute normality was noted. Oral intake is poor. Vital signs are stable. General: Awake. No acute distress. HEENT: Head exam is unremarkable. LUNGS: Breath sounds decreased. HEART: Rate and Rhythm are regular. ABDOMEN: Soft, mild generalized tenderness to touch. EXTREMITITES: No edema. Past Medical History Past Medical History: COPD History of Any Multi-Drug Resistant Organisms: None Reported Additional Past Surgical History / Comment(s): Vesectomy Past Psychological History: No Psychological Hx Reported Smoking Status: Current every day smoker Past Alcohol Use History: Daily Past Drug Use History: None Reported Medications and Allergies Home Medications Medication Instructions Recorded Confirmed Type Diphenoxylate HCl/Atropine 1 tab PO Q8H PRN 11/10/20 11/10/20 History [Lomotil 2.5-0.025 mg Tablet] Fenofibrate Nanocrystallized 145 mg PO DAILY 11/10/20 11/10/20 History [Fenofibrate] Potassium Chloride ER [K-Dur 20] 20 meq PO DAILY 11/10/20 11/10/20 History Terazosin HCl 5 mg PO DAILY 11/10/20 11/10/20 History Tiotropium 2.5 Mcg/Puff [Spiriva 2 puff INHALATION RT-DAILY 11/10/20 11/10/20 History Respimat 2.5 Mcg] Folic Acid-Vit B Complex-Vit C 1 each PO DAILY #0 cap 11/17/20 Rx [Nephrocaps] Nicotine 21Mg/24Hr Patch [Habitrol] 1 patch TRANSDERM DAILY #30 patch 11/17/20 Rx Pantoprazole [Protonix] 40 mg PO AC-BID #60 tablet. 11/17/20 Rx Thiamine [Vitamin B-1] 100 mg PO DAILY #30 tab 11/17/20 Rx Allergies Allergy/AdvReac Type Severity Reaction Status Date / Time No Known Allergies Allergy Verified 08/14/22 20:54 Physical Exam Vitals: Vital Signs Temp Pulse Resp BP Pulse Ox 08/15/22 04:43 72 16 117/63 97 08/15/22 02:47 16 08/15/22 00:13 78 08/15/22 00:07 76 08/14/22 22:25 83 16 108/69 98 08/14/22 20:52 98 F 117 H 20 86/56 99 Intake and Output 08/14/22 08/15/22 08/15/22 22:59 06:59 14:59 Other: Weight 54.431 kg Results - Lab Results Most recent lab results Calcium 8.3 mg/dL (8.4-10.2) L 08/15/22 07:01 Magnesium 1.6 mg/dL (1.6-2.3) 08/15/22 07:01 08/14/22 21:29 08/15/22 07:01 Assessment and Plan Plan: Assessment: 1. Acute kidney injury mostly prerenal from poor intake and diarrhea, improved with IV hydration. Creatinine 1.60 on admission and is 1.43 today. Baseline creatinine near 1 from January 2022. No proteinuria on UA. No hydronephrosis noted on CAT scan. 2. Hyponatremia from poor solute intake. 3. Metabolic acidosis secondary to acute kidney injury, GI losses and IV flu ids. 4. Hypomagnesemia from poor intake. 5. Hyperkalemia from acute kidney injury, acidosis and potassium supplementation. Improved with medical management. Plan: Decreased rate of normal saline to 50 mL an hour. Check bladder scan to rule out urinary retention. Continue to hold potassium supplementation. Add oral bicarbonate. Check serum and urine osmolality and urine sodium level. Check TSH. Continue to monitor renal function and urine output. Encourage oral intake. 1200 mL fluid restriction. Replace magnesium. Follow-up cultures. Thank you for the consultation. I will continue to follow the patient with you during his hospital stay.
[2022-08-15] MEDS: MAGNESIUM SULFATE-D5W PMX 1 GM in DEXTROSE/WATER 1 100ML.BAG IVPB SCH ×2 (10:12→16:03)
[2022-08-15] MEDS: THIAMINE 100 MG TAB PO SCH (10:12)
[2022-08-15] MEDS: SODIUM BICARBONATE TAB 650 MG TAB PO SCH ×3 (10:19→22:20)
--- NOTE | 2022-08-15 15:51 | P.HPIM ---
History of Present Illness H&P Date: 08/15/22 Chief Complaint: Abdominal pain This is 70-year-old gentleman with past medical history of COPD, ongoing nicotine dependence, daily alcohol abuse and multiple other medical issues brought into the ER by his son for complaints of generalized weakness, abdominal pain. Son currently not at bedside. Denies nausea vomiting, positive nonbloody diarrhea over the last week. Denies recent antibiotic use. Denies fever or chills or diaphoresis. Reports he is drinking daily, 2-3 beers a day depending on the day. Appetite poor. Son reported to ER that patient fell approximately 2 weeks ago, without head trauma per son who witnessed the fall, with subsequent upper and middle back pain. Hypotensive, tachycardic on admission the blood pressure of 86/56, heart rate 117. Afebrile, normal WBC. Potassium 6.6, received hyperkalemic cocktail, repeat level IV.7. Bicarbonate 18, BUN 33, creatinine 1.63/currently 34, 1.43. Sodium 127. UA negative chest x-ray reported old granulomatous disease.Lumbar and Thoracic spine reported negative for fractures, positive thoracolumbar dextroscoliosis. Abdomen and pelvis CT reported no acute abnormality. Denies chest pain, palpitations or shortness of breath. Review of Systems ROS Statement: Those systems with pertinent positive or pertinent negative responses have been documented in the HPI. ROS Other: All systems not noted in ROS Statement are negative. Past Medical History Past Medical History: COPD History of Any Multi-Drug Resistant Organisms: None Reported Additional Past Surgical History / Comment(s): Vesectomy Past Psychological History: No Psychological Hx Reported Smoking Status: Current every day smoker Past Alcohol Use History: Daily Past Drug Use History: None Reported Medications and Allergies Home Medications Medication Instructions Recorded Confirmed Type Diphenoxylate HCl/Atropine 1 tab PO DAILY 11/10/20 08/15/22 History [Lomotil 2.5-0.025 mg Tablet] Fenofibrate Nanocrystallized 145 mg PO DAILY 11/10/20 08/15/22 History [Fenofibrate] Potassium Chloride ER [K-Dur 20] 20 meq PO DAILY 11/10/20 08/15/22 History Tiotropium 2.5 Mcg/Puff [Spiriva 2 puff INHALATION RT-DAILY 11/10/20 08/15/22 History Respimat 2.5 Mcg] Thiamine [Vitamin B-1] 100 mg PO DAILY #30 tab 11/17/20 08/15/22 Rx Wcdetrraicrzyh-LK-Gjboqbjanl 1 tab PO DAILY 08/15/22 08/15/22 History [Folbic] Donepezil [Aricept] 10 mg PO HS 08/15/22 08/15/22 History Losartan Potassium 100 mg PO DAILY 08/15/22 08/15/22 History Allergies Allergy/AdvReac Type Severity Reaction Status Date / Time No Known Allergies Allergy Verified 08/14/22 20:54 Physical Exam Vitals: Vital Signs Temp Pulse Resp BP Pulse Ox 08/15/22 15:00 71 18 109/63 100 08/15/22 10:15 98.4 F 84 16 124/63 98 08/15/22 04:43 72 16 117/63 97 08/15/22 02:47 16 08/15/22 00:13 78 08/15/22 00:07 76 08/14/22 22:25 83 16 108/69 98 08/14/22 20:52 98 F 117 H 20 86/56 99 GENERAL: Thin built cachectic,significant muscle atrophy, no acute distress HEENT: Pupils are round and equally reacting to light. EOMI. No scleral icterus. No conjunctival pallor. Normocephalic, atraumatic. No pharyngeal erythema. No thyromegaly. CARDIOVASCULAR: S1 and S2 present. No murmurs, rubs, or gallops. PULMONARY: Chest is clear to auscultation, no wheezing or crackles. ABDOMEN: Soft, mild diffuse right upper and lower quadrant tenderness, nondistended, normoactive bowel sounds. No palpable organomegaly. EXTREMITIES: No cyanosis, clubbing, or pedal edema. Positive DP pulses NEUROLOGICAL: Cranial nerves II through XII grossly intact, no focal deficits SKIN: Warm and dry, No rashes. Results CBC & Chem 7: 08/14/22 21:29 08/15/22 07:01 Labs: Abnormal Lab Results - Last 24 Hours (Table) 08/14/22 08/14/22 08/14/22 Range/Units 21:29 21:29 21:29 RBC 3.25 L (4.30-5.90) m/uL Hgb 10.8 L (13.0-17.5) gm/dL Hct 34.0 L (39.0-53.0) % MCV 104.5 H (80.0-100.0) fL Plt Count 462 H (150-450) k/uL Sodium 129 L (137-145) mmol/L Potassium 6.5 H* 6.6 H* (3.5-5.1) mmol/L Carbon Dioxide 18 L (22-30) mmol/L BUN 33 H (9-20) mg/dL Creatinine 1.63 H (0.66-1.25) mg/dL Glucose 137 H (74-99) mg/dL Osmolality (280-301) mosm/kg Calcium (8.4-10.2) mg/dL Ur Specific [place] (1.001-1.035) Urine Glucose (UA) (Negative) 08/15/22 08/15/22 08/15/22 Range/Units 02:29 07:01 07:01 RBC (4.30-5.90) m/uL Hgb (13.0-17.5) gm/dL Hct (39.0-53.0) % MCV (80.0-100.0) fL Plt Count (150-450) k/uL Sodium 127 L (137-145) mmol/L Potassium (3.5-5.1) mmol/L Carbon Dioxide 18 L (22-30) mmol/L BUN 34 H (9-20) mg/dL Creatinine 1.43 H (0.66-1.25) mg/dL Glucose (74-99) mg/dL Osmolality 276 L (280-301) mosm/kg Calcium 8.3 L (8.4-10.2) mg/dL Ur Specific [place] 1.050 H (1.001-1.035) Urine Glucose (UA) 2+ H (Negative) Assessment and Plan Assessment: Hyperkalemia secondary to acute renal failure, Acute renal failure,prerenal secondary to poor oral intake, diarrhea, hypotension, hypovolemia. Baseline Creatinine 1.0, improving with IV fluid hydration Hyponatremia, hypovolemic Metabolic acidosis secondary to acute renal failure, diarrhea Dehydration secondary to poor oral intake Moderate Protein calorie malnutrition, BMI 20.0 Nicotine dependence Alcohol abuse, daily Hypomagnesemia Recent fall. Plan: Continue on current medication regime ,monitoring and symptomatic treatment. Fluid restrictions, gentle IV fluid hydration. Urine osmolality/urine sodium pending. Bicarb. Magnesium replacement ordered. Close monitoring of electrolytes, renal function with repeat labs ordered for a.m. Stool cultures in progress. Nephrology consult in place. PT/OT consulted. The impression and plan of care has been dictated as directed. : I performed a history and examination of this patient, discussed the same with the dictator. I agree with the dictator's note ,documented as a scribe. Any additional findings or plans will be noted.
[2022-08-15] MEDS: LORazepam 1 MG TAB PO PRN (22:22)
[2022-08-16 06:53] LABS: African American GFR (CKD) 90 (>60 ml/min/1.73 sqM); Anion Gap 4 mmol/L; Blood Urea Nitrogen 28 mg/dL (9-20); Calcium 8.1 mg/dL (8.4-10.2); Carbon Dioxide 22 mmol/L (22-30); Chloride 102 mmol/L (98-107); Glucose 75 mg/dL (74-99); Magnesium 1.9 mg/dL (1.6-2.3); Non-African American GFR(CKD) 77 (>60 ml/min/1.73 sqM); Potassium 4.3 mmol/L (3.5-5.1); Sodium 128 mmol/L (137-145)
[2022-08-16] MEDS: SODIUM BICARBONATE TAB 650 MG TAB PO SCH ×3 (09:55→21:06)
[2022-08-16] MEDS: THIAMINE 100 MG TAB PO SCH (09:55)
--- NOTE | 2022-08-16 10:45 | P.PN ---
Subjective Patient is seen in follow-up for acute kidney injury and hyponatremia. Renal function improved. Sodium level also slightly better. Blood pressure stable. Oral intake is poor. Resting in bed. Sitter present at bedside. Vital signs are stable. General: Resting in bed. HEENT: Head exam is unremarkable. LUNGS: Breath sounds decreased. HEART: Rate and Rhythm are regular. ABDOMEN: Soft, no distention. EXTREMITITES: No edema. Objective - Vital Signs Vital signs: Vital Signs Temp 97.7 F 08/16/22 04:01 Pulse 74 08/16/22 04:01 Resp 16 08/16/22 04:01 BP 106/64 08/16/22 04:01 Pulse Ox 96 08/16/22 04:01 FiO2 Intake & Output 08/15/22 08/16/22 08/16/22 18:59 06:59 18:59 Intake Total 350 Balance 350 Weight 54.431 kg Intake: Intake, IV Titration 350 Amount Magnesium Sulfate-D5w Pmx 200 1 gm In Dextrose/Water 1 100ml.bag @ 100 mls/hr IVPB Q1H JOZEF Rx#: [id number] Sodium Chloride 0.9% 1, 150 000 ml @ 50 mls/hr IV . Q20H JOZEF Rx#:[id number] Other: Voiding Method Toilet # Voids 2 - Labs CBC & Chem 7: 08/14/22 21:29 08/16/22 05:38 Labs: Abnormal Lab Results - Last 24 Hours (Table) 08/15/22 08/16/22 Range/Units 02:29 05:38 Sodium 128 L (137-145) mmol/L BUN 28 H (9-20) mg/dL Calcium 8.1 L (8.4-10.2) mg/dL Ur Random Sodium <20 L (40-220) mmol/L Microbiology - Last 24 Hours (Table) 08/15/22 15:07 Stool Culture - Preliminary Stool Assessment and Plan Plan: Assessment: 1. Acute kidney injury mostly prerenal from poor intake and diarrhea, improved with IV hydration. Creatinine 1.60 on admission and is 0.98 today. Baseline creatinine near 1 from January 2022. No proteinuria on UA. No hydronephrosis noted on CAT scan. 2. Hyponatremia from poor solute intake. Urine sodium less than 20 and urine osmolality 478. TSH normal. 3. Metabolic acidosis secondary to acute kidney injury, GI losses and IV fluids. On oral bicarbonate. Better. 4. Hypomagnesemia from poor intake. Replace. Better. 5. Hyperkalemia from acute kidney injury, acidosis and potassium supplementation. Improved with medical management. Plan: Maintain normal saline at 50 mL an hour. Continue to monitor renal function and urine output. Encourage oral intake. 1200 mL fluid restriction. Add sodium chloride tabs. Repeat labs in the morning.
--- NOTE | 2022-08-16 12:42 | P.PN ---
Subjective Progress Note Date: 08/16/22 H&P Date: 08/15/22 Chief Complaint: Abdominal pain This is 72-year-old gentleman with past medical history of COPD, ongoing nicotine dependence, daily alcohol abuse and multiple other medical issues brought into the ER by his son for complaints of generalized weakness, abdominal pain. Son currently not at bedside. Denies nausea vomiting, positive nonbloody diarrhea over the last week. Denies recent antibiotic use. Denies fever or chills or diaphoresis. Reports he is drinking daily, 2-3 beers a day depending on the day. Appetite poor. Son reported to ER that patient fell approximately 2 weeks ago, without head trauma per son who witnessed the fall, with subsequent upper and middle back pain. Hypotensive, tachycardic on admission the blood p ressure of 86/56, heart rate 117. Afebrile, normal WBC. Potassium 6.6, received hyperkalemic cocktail, repeat level IV.7. Bicarbonate 18, BUN 33, creatinine 1.63/currently 34, 1.43. Sodium 127. UA negative chest x-ray reported old granulomatous disease.Lumbar and Thoracic spine reported negative for fractures, positive thoracolumbar dextroscoliosis. Abdomen and pelvis CT reported no acute abnormality. Denies chest pain, palpitations or shortness of breath. 08/16/2022 continues on fluid restrictions, IV fluids at 50 MLS an hour with sodium improving, increased to 128. Urine sodium less than 20, urine osmolality 478, TSH WNL. Renal function improving as well, BUN 28, creatinine 0.98. Diarrhea improving, tested negative for C. difficile colitis. Stool for occult blood positive, CBC pending. Preliminary stool culture pending. Sitter at bedside, sleepy, maintained on CIWA, currently scored at 4. Confused did not recognize PCP. Vital signs stable. Objective - Vital Signs Vital signs: Vital Signs Temp 97.7 F 08/16/22 04:01 Pulse 74 08/16/22 04:01 Resp 16 08/16/22 04:01 BP 106/64 08/16/22 04:01 Pulse Ox 96 08/16/22 04:01 FiO2 Intake & Output 08/15/22 08/16/22 08/16/22 18:59 06:59 18:59 Intake Total 350 Balance 350 Weight 54.431 kg Intake: Intake, IV Titration 350 Amount Magnesium Sulfate-D5w Pmx 200 1 gm In Dextrose/Water 1 100ml.bag @ 100 mls/hr IVPB Q1H [facility] Rx#: [id number] Sodium Chloride 0.9% 1, 150 000 ml @ 50 mls/hr IV . Q20H [facility] Rx#:[id number] Other: Voiding Method Toilet # Voids 2 - Exam GENERAL: Thin built cachectic,significant muscle atrophy,sleepy HEENT: Pupils are round and equally reacting to light. EOMI. No scleral icterus. No conjunctival pallor. Normocephalic, atraumatic. CARDIOVASCULAR: S1 and S2 present. No murmurs, rubs, or gallops. PULMONARY: Chest is clear to auscultation, no wheezing or crackles. ABDOMEN: Soft, nontender, nondistended, normoactive bowel sounds. No palpable organomegaly. EXTREMITIES: No cyanosis, clubbing, or pedal edema. Positive DP pulses NEUROLOGICAL: Cranial nerves II through XII grossly intact, no focal deficits SKIN: Warm and dry, No rashes. - Labs CBC & Chem 7: 08/14/22 21:29 08/16/22 05:38 Labs: Abnormal Lab Results - Last 24 Hours (Table) 08/15/22 08/16/22 Range/Units 02:29 05:38 Sodium 128 L (137-145) mmol/L BUN 28 H (9-20) mg/dL Calcium 8.1 L (8.4-10.2) mg/dL Ur Random Sodium <20 L (40-220) mmol/L Microbiology - Last 24 Hours (Table) 08/15/22 15:07 Stool Culture - Preliminary Stool Assessment and Plan Assessment: Hyperkalemia secondary to acute renal failure, Acute renal failure,prerenal secondary to poor oral intake, diarrhea, hypotension, hypovolemia. Baseline Creatinine 1.0, improving with IV fluid hydration Hyponatremia, hypovolemic, improving Alcohol abuse, daily, acute DTs Acute metabolic and toxic encephalopathy secondary to all the above including alcohol abuse. Metabolic acidosis secondary to acute renal failure, diarrhea Dehydration secondary to poor oral intake Moderate Protein calorie malnutrition, BMI 20.0 Nicotine dependence Hypomagnesemia Recent fall. Plan: Continue on current medication regime ,monitoring and symptomatic treatmen t. Fluid restrictions, gentle IV fluid hydration,oral Bicarb. Close monitoring of electrolytes, renal function with repeat labs ordered for a.m. Stool cultures in progress. The impression and plan of care has been dictated as directed. : I performed a history and examination of this patient, discussed the same with the dictator. I agree with the dictator's note ,documented as a scribe. Any additional findings or plans will be noted.
[2022-08-16 12:49] LABS: HCT 23.2 % (39.0-53.0); Hypochromasia Moderate; MCH 32.7 pg (25.0-35.0); MCHC 31.6 g/dL (31.0-37.0); MCV 103.7 fL (80.0-100.0); Macrocytosis Slight; Platelet Count 250 k/uL (150-450); RBC 2.24 m/uL (4.30-5.90); RDW 14.2 % (11.5-15.5); WBC 6.3 k/uL (3.8-10.6)
[2022-08-16] MEDS: SODIUM CHLORIDE TAB 1 GM TAB PO SCH ×2 (12:49→21:06)
[2022-08-16 12:55] LABS: HGB 7.3 gm/dL (13.0-17.5)
[2022-08-16 13:11] LABS: Target Cells Present
[2022-08-16] MEDS ORDERED: PANTOPRAZOLE 40 MG/10 ML VIAL IVP SCH ×2 (15:14→21:00)
--- NOTE | 2022-08-16 15:40 | P.GSCN ---
History of Present Illness Consult date: 08/16/22 Reason for Consult: GI bleed History of present illness: 72-year-old male hospitalized 2 days ago with upper abdominal pain. Patient apparently was having some nonbloody diarrhea as well. No nausea or vomiting. Patient with history of some dementia and has had some confusion. Patient was brought to the hospital with his son. Appetite has been diminished. He underwent CT abdomen and pelvis reportedly showing no definite abnormalities. Upon review of the CAT scan however there is an abnormality resident in the distal stomach prepyloric region. Findings most consistent with peptic ulcer disease. Associated abscess or neoplasia not excluded. Patient has been eating solid foods up until a few hours ago. He has been drinking all afternoon as well. We were consulted after the patient's hemoglobin was noted to drop from 10-7 and he had a melanotic stool. He was found have a systolic blood pressure in the high 80s. Review of Systems The patient denies any acute changes in vision or hearing, no dysphagia or odynophagia, no chest pain or shortness of breath, no dysuria or hematuria, no headache, no runny nose, no rectal bleeding, no unexplained weight loss Past Medical History Past Medical History: COPD, Dementia, Memory Impairment History of Any Multi-Drug Resistant Organisms: None Reported Additional Past Surgical History / Comment(s): Vasectomy Past Anesthesia/Blood Transfusion Reactions: No Reported Reaction Past Psychological History: No Psychological Hx Reported Smoking Status: Current every day smoker Past Alcohol Use History: Occasional Past Drug Use History: None Reported - Past Family History Father Family Medical History: No Reported History Mother Family Medical History: No Reported History Medications and Allergies Home Medications Medication Instructions Recorded Confirmed Type Diphenoxylate HCl/Atropine 1 tab PO DAILY 11/10/20 08/15/22 History [Lomotil 2.5-0.025 mg Tablet] Fenofibrate Nanocrystallized 145 mg PO DAILY 11/10/20 08/15/22 History [Fenofibrate] Potassium Chloride ER [K-Dur 20] 20 meq PO DAILY 11/10/20 08/15/22 History Tiotropium 2.5 Mcg/Puff [Spiriva 2 puff INHALATION RT-DAILY 11/10/20 08/15/22 History Respimat 2.5 Mcg] Thiamine [Vitamin B-1] 100 mg PO DAILY #30 tab 11/17/20 08/15/22 Rx [id number] 1 tab PO DAILY 08/15/22 08/15/22 History [Folbic] Donepezil [Aricept] 10 mg PO HS 08/15/22 08/15/22 History Losartan Potassium 100 mg PO DAILY 08/15/22 08/15/22 History Allergies Allergy/AdvReac Type Severity Reaction Status Date / Time No Known Allergies Allergy Verified 08/14/22 20:54 Surgical - Exam Vital Signs Temp Pulse Resp BP Pulse Ox 98 F 117 H 20 86/56 99 08/14/22 20:52 08/14/22 20:52 08/14/22 20:52 08/14/22 20:52 08/14/22 20:52 Physical exam: General: Well-developed, malnourished appearing HEENT: Normocephalic, sclerae nonicteric Abdomen: Nontender, nondistended Extremities: No edema Neuro: Alert and oriented Results - Labs 08/16/22 05:38 08/16/22 05:38 Abnormal Lab Results - Last 24 Hours (Table) 08/15/22 08/16/22 08/16/22 Range/Units 02:29 05:38 05:38 RBC 2.24 L (4.30-5.90) m/uL Hgb 7.3 L D (13.0-17.5) gm/dL Hct 23.2 L (39.0-53.0) % MCV 103.7 H (80.0-100.0) fL Sodium 128 L (137-145) mmol/L BUN 28 H (9-20) mg/dL Calcium 8.1 L (8.4-10.2) mg/dL Ur Random Sodium <20 L (40-220) mmol/L Microbiology - Last 24 Hours (Table) 08/15/22 15:07 Stool Culture - Preliminary Stool Diabetes panel 08/16/22 Range/Units 05:38 Sodium 128 L (137-145) mmol/L Potassium 4.3 (3.5-5.1) mmol/L Chloride 102 (98-107) mmol/L Carbon Dioxide 22 (22-30) mmol/L BUN 28 H (9-20) mg/dL Creatinine 0.98 (0.66-1.25) mg/dL Glucose 75 (74-99) mg/dL Calcium 8.1 L (8.4-10.2) mg/dL Thyroid panel 08/16/22 Range/Units 05:38 TSH 0.543 (0.465-4.680) mIU/L Calcium panel 08/16/22 Range/Units 05:38 Calcium 8.1 L (8.4-10.2) mg/dL Pituitary panel 08/16/22 Range/Units 05:38 Sodium 128 L (137-145) mmol/L Potassium 4.3 (3.5-5.1) mmol/L Chloride 102 (98-107) mmol/L Carbon Dioxide 22 (22-30) mmol/L BUN 28 H (9-20) mg/dL Creatinine 0.98 (0.66-1.25) mg/dL Glucose 75 (74-99) mg/dL Calcium 8.1 L (8.4-10.2) mg/dL TSH 0.543 (0.465-4.680) mIU/L Adrenal panel 08/16/22 Range/Units 05:38 Sodium 128 L (137-145) mmol/L Potassium 4.3 (3.5-5.1) mmol/L Chloride 102 (98-107) mmol/L Carbon Dioxide 22 (22-30) mmol/L BUN 28 H (9-20) mg/dL Creatinine 0.98 (0.66-1.25) mg/dL Glucose 75 (74-99) mg/dL Calcium 8.1 L (8.4-10.2) mg/dL Assessment and Plan (1) GI bleed Narrative/Plan: 72-year-old male with GI bleed and CAT scan suggesting probable peptic ulcer disease. We'll proceed with upper endoscopy. This will be performed either lat er tonight or tomorrow morning. Spoke with anesthesia that would like to wait at least 6 hours given the recent oral intake. Continue antiacid therapy. Will follow. Current Visit: Yes Status: Acute Code(s): K92.2 - GASTROINTESTINAL HEMORRHAGE, UNSPECIFIED SNOMED Code(s): 90037095
[2022-08-16 15:47] LABS: INR 1.7 (<1.2); Prothrombin Time 17.6 sec (9.0-12.0)
[2022-08-16 15:56] LABS: Glucose,Whole Blood 122 mg/dL (70-110)
[2022-08-16 15:57] LABS: Hypochromasia Marked; MCH 34.1 pg (25.0-35.0); MCHC 32.5 g/dL (31.0-37.0); MCV 104.9 fL (80.0-100.0); Macrocytosis Moderate; Mean Platelet Volume 9.2; Platelet Count 317 k/uL (150-450); RBC 1.82 m/uL (4.30-5.90); RDW 14.3 % (11.5-15.5)
[2022-08-16 15:58] LABS: HCT 19.1 % (39.0-53.0); HGB 6.2 gm/dL (13.0-17.5)
[2022-08-16] MEDS: PANTOPRAZOLE 40 MG/10 ML VIAL IVP SCH (20:32)
[2022-08-16] MEDS: LORazepam 1 MG TAB PO PRN (22:51)
[2022-08-17 00:28] LABS: HCT 21.9 % (39.0-53.0); HGB 7.1 gm/dL (13.0-17.5); Hypochromasia Moderate; MCH 33.4 pg (25.0-35.0); MCHC 32.6 g/dL (31.0-37.0); MCV 102.5 fL (80.0-100.0); Macrocytosis Slight; Platelet Count 262 k/uL (150-450); Poikilocytosis Slight; RBC 2.14 m/uL (4.30-5.90); WBC 6.7 k/uL (3.8-10.6)
[2022-08-17] MEDS: SODIUM CHLORIDE 0.9% 1,000 ML IV SCH (02:24)
[2022-08-17] MEDS ORDERED: OLANZapine 10 MG VIAL IM PRN (02:55)
[2022-08-17] MEDS ORDERED: SODIUM CHLORIDE 0.9% 1,000 ML IV ONE (06:47)
[2022-08-17] MEDS ORDERED: MIDAZOLAM 2 MG/2 ML VIAL ONE (07:00)
[2022-08-17] MEDS ORDERED: PHENYLEPHRINE-0.9% NACL SYG 1,000 MCG/10 ML SYRINGE ONE (07:00)
[2022-08-17] MEDS ORDERED: LIDOCAINE 2% INJ 20 MG/ML (2 ML VIAL) ONE (07:00)
[2022-08-17] MEDS ORDERED: PROPOFOL 10 MG/ML 20 ML VIAL IV ONE (07:00)
--- NOTE | 2022-08-17 07:40 | P.PCN ---
Date of Procedure: 08/17/22 Procedure(s) Performed: Preoperative Dx: GI bleed Postoperative Dx: Duodenal ulcer with no active bleeding Procedure: EGD Anesthesia: Sedation Endoscopist: Dr. Murphy Specimens: None Endoscopic Procedure: The patient was on the endoscopy table in the left decubitus position. The Olympus gastroscope was inserted into the oropharynx and passed under direct visualization to the region of the third portion of the duodenum. From that point the scope was slowly withdrawn inspecting all surfaces carefully. There was noted to be a 1.5 cm ulcer along the first portion of the duodenal wall just past the pylorus. There is no visible vessel, no adherent clot, no active bleeding noted. There was some old blood present within the duodenum and the stomach however. The pylorus was widely patent. Minimal gastritis was seen in the stomach. Retroflexion revealed a normal appearing hiatus. The esophagus was then carefully examined. There were no neoplastic inflammatory or polypoid lesions throughout the visualized esophagus. Recommendations: Keep nothing by mouth for now. Continue IV Protonix and will add Carafate. Repeat hemoglobin this morning. Patient certainly high risk for rebleed. If significant bleeding noted may require laparotomy with control of bleeding. No family present at the bedside to discuss these results.
[2022-08-17 07:44] LABS: Anisocytosis Slight; Basophils % (A) 0 %; Eosinophils % (A) 1 %; Hypochromasia Marked; Lymphocytes # (A) 1.2 k/uL (1.0-4.8); Lymphocytes % (A) 16 %; MCH 33.2 pg (25.0-35.0); MCHC 31.4 g/dL (31.0-37.0); Macrocytosis Moderate; Mean Platelet Volume 9.7; Monocytes # (A) 0.4 k/uL (0-1.0); Monocytes % (A) 6 %; Neutrophils # (A) 5.6 k/uL (1.3-7.7); Neutrophils % (A) 74 %; Platelet Count 272 k/uL (150-450); Poikilocytosis Slight; RBC 1.76 m/uL (4.30-5.90); WBC 7.6 k/uL (3.8-10.6)
[2022-08-17 07:46] LABS: HCT 18.6 % (39.0-53.0); HGB 5.8 gm/dL (13.0-17.5)
[2022-08-17 08:09] LABS: Calcium 7.8 mg/dL (8.4-10.2); Magnesium 1.6 mg/dL (1.6-2.3); Potassium 4.4 mmol/L (3.5-5.1)
[2022-08-17] MEDS: SODIUM BICARBONATE TAB 650 MG TAB PO SCH ×3 (08:54→22:32)
[2022-08-17] MEDS: PANTOPRAZOLE 40 MG/10 ML VIAL IVP SCH ×2 (08:54→21:55)
[2022-08-17] MEDS: SODIUM CHLORIDE TAB 1 GM TAB PO SCH ×2 (08:54→22:30)
[2022-08-17] MEDS: SUCRALFATE 1 GM TAB PO SCH ×2 (08:54→18:44)
[2022-08-17] MEDS: THIAMINE 100 MG TAB PO SCH (08:54)
[2022-08-17] MEDS ORDERED: SODIUM BICARB 8.4% 50 ML SYR (1 MEQ/ML) IV STA (09:33)
--- NOTE | 2022-08-17 09:34 | P.PN ---
Subjective Patient is seen in follow-up for acute kidney injury and hyponatremia. Renal function improved from admission. Developed GI bleed yesterday - hemoglobin 5.8 this morning. Currently receiving blood transfusion. Hyponatremia improved. Patient is quite confused. Blood pressure is in the systolic 80s to 90s. Not on vasopressor support. Underwent EGD this morning which showed duodenal ulcer with no active bleeding. Vital signs are stable. Blood pressure on the lower side. General: Resting in bed. HEENT: Head exam is unremarkable. LUNGS: Breath sounds decreased. HEART: Rate and Rhythm are regular. ABDOMEN: Soft, no distention. EXTREMITITES: No edema. Objective - Vital Signs Vital signs: Vital Signs Temp 96.2 F L 08/17/22 08:37 Pulse 105 H 08/17/22 08:37 Resp 18 08/17/22 08:37 BP 89/54 08/17/22 08:37 Pulse Ox 94 L 08/17/22 08:37 FiO2 Intake & Output 08/16/22 08/17/22 08/17/22 18:59 06:59 18:59 Intake Total 150 910 100 Output Total 0 3 Balance 150 907 100 Weight 45.1 kg Intake: Intake, IV Titration 150 600 100 Amount Sodium Chloride 0.9% 1, 150 600 100 000 ml @ 50 mls/hr IV . Q20H [facility] Rx#:[id number] Blood Product 0 310 0 Unit 0 Rc As-1 Unit 0 310 [id number] Output: Urine 0 Stool 3 Other: Voiding Method Toilet Toilet Toilet # Voids 1 1 # Bowel Movements 1 1 - Labs CBC & Chem 7: 08/17/22 07:03 08/17/22 07:03 Labs: Abnormal Lab Results - Last 24 Hours (Table) 08/16/22 08/16/22 08/16/22 Range/Units 05:38 15:08 15:08 RBC 2.24 L 1.82 L (4.30-5.90) m/uL Hgb 7.3 L D 6.2 L* (13.0-17.5) gm/dL Hct 23.2 L 19.1 L* (39.0-53.0) % MCV 103.7 H 104.9 H (80.0-100.0) fL RDW (11.5-15.5) % PT 17.6 H (9.0-12.0) sec INR 1.7 H (<1.2) Sodium (137-145) mmol/L Carbon Dioxide (22-30) mmol/L BUN (9-20) mg/dL Glucose (74-99) mg/dL POC Glucose (mg/dL) (70-110) mg/dL Calcium (8.4-10.2) mg/dL Crossmatch 08/16/22 08/16/22 08/17/22 Range/Units 15:54 16:31 00:09 RBC 2.14 L (4.30-5.90) m/uL Hgb 7.1 L (13.0-17.5) gm/dL Hct 21.9 L (39.0-53.0) % MCV 102.5 H (80.0-100.0) fL RDW (11.5-15.5) % PT (9.0-12.0) sec INR (<1.2) Sodium (137-145) mmol/L Carbon Dioxide (22-30) mmol/L BUN (9-20) mg/dL Glucose (74-99) mg/dL POC Glucose (mg/dL) 122 H (70-110) mg/dL Calcium (8.4-10.2) mg/dL Crossmatch See Detail 08/17/22 08/17/22 Range/Units 07:03 07:03 RBC 1.76 L (4.30-5.90) m/uL Hgb 5.8 L* (13.0-17.5) gm/dL Hct 18.6 L* (39.0-53.0) % MCV 106.0 H (80.0-100.0) fL RDW 16.0 H (11.5-15.5) % PT (9.0-12.0) sec INR (<1.2) Sodium 134 L (137-145) mmol/L Carbon Dioxide 19 L (22-30) mmol/L BUN 39 H (9-20) mg/dL Glucose 105 H (74-99) mg/dL POC Glucose (mg/dL) (70-110) mg/dL Calcium 7.8 L (8.4-10.2) mg/dL Crossmatch Assessment and Plan Plan: Assessment: 1. Acute kidney injury mostly prerenal from poor intake and diarrhea, improved with IV hydration. Creatinine 1.60 on admission and is 1.14 today. Baseline creatinine near 1 from January 2022. No proteinuria on UA. No hydronephrosis noted on CAT scan. 2. Hyponatremia from poor solute intake. Urine sodium less than 20 and urine osmolality 478. TSH normal. Better. 3. Metabolic acidosis secondary to acute kidney injury, GI losses and IV fluids. On oral bicarbonate. 4. Hypomagnesemia from poor intake and GI losses. 5. Hyperkalemia from acute kidney injury, acidosis, GIB and potassium supplementation. Improved with medical management. 6. GI bleed currently receiving blood transition. EGD showed duodenal ulcer without active bleeding. Plan: Maintain normal saline at 50 mL an hour. Continue to monitor renal function and urine output. Maintain sodium chloride tabs for now as blood pressure is low. I will give him a dose of IV DDAVP today. Repeat labs in the morning. Monitor hemoglobin and transfuse as needed. Replace magnesium.
[2022-08-17] MEDS ORDERED: DESMOPRESSIN ACETATE 14 MCG in SODIUM CHLORIDE 0.9% 50 ML IVPB ONE (10:00)
[2022-08-17] MEDS: MAGNESIUM SULFATE-D5W PMX 1 GM in DEXTROSE/WATER 1 100ML.BAG IVPB SCH ×2 (10:03→12:23)
[2022-08-17] MEDS: LORazepam 1 MG TAB PO PRN ×2 (10:33→13:05)
--- NOTE | 2022-08-17 10:57 | P.CNPUL ---
History of Present Illness Consult date: 08/17/22 Requesting physician: Thaddeus Patel Chief complaint: GI bleed. History of present illness: Pulmonary/critical care consult dated 08/17/2022. 72-year-old male who was admitted on August 15 for gastrointestinal bleed, acute kidney injury, and abdominal pain. Because of ongoing bleeding, the patient was transferred to the intensive care unit on August 16. This morning, he underwent EGD, and was found to have a duodenal ulcer, without active bleeding, although, according to the nurse, the patient was at high risk for rebleeding. The patient has received or will receive 3 units of packed red blood cells. His hemoglobin this morning was 5.8. He is on room air. The patient does receive saline at 50 mL an hour. The patient has a history of dementia, COPD, and chronic alcohol use. Unable to quantitate how much alcohol he drinks. The patient's very agitated in bed currently. White count 7.6, hemoglobin 5.8, hematocrit 18.6, platelet count 272,000. PT 17.6 INR 1.7. Sodium 134, potassium 4.4, chlorides 106, CO2 19, BUN 39, creatinine 1.1. Chest x-ray shows no active cardiopulmonary disease. CT of the abdomen and pelvis shows no acute abnormality. Review of Systems REVIEW OF SYSTEMS: CONSTITUTIONAL: [Negative.] NEUROLOGIC: [ Negative.] HEENT: [ Negative.] CARDIAC: [Negative.] PULMONARY: [Negative.] GI: Melanotic stools. : [Negative.] RHEUMATOLOGIC: [ Negative.] IMMUNOLOGIC: [ Negative.] ENDOCRINE: [Negative. ] DERMATOLOGIC: [Negative.] Past Medical History Past Medical History: COPD, Dementia, Memory Impairment History of Any Multi-Drug Resistant Organisms: None Reported Additional Past Surgical History / Comment(s): Vasectomy Past Anesthesia/Blood Transfusion Reactions: No Reported Reaction Past Psychological History: No Psychological Hx Reported Smoking Status: Current every day smoker Past Alcohol Use History: Occasional Past Drug Use History: None Reported - Past Family History Father Family Medical History: No Reported History Mother Family Medical History: No Reported History Medications and Allergies Home Medications Medication Instructions Recorded Confirmed Type Diphenoxylate HCl/Atropine 1 tab PO DAILY 11/10/20 08/15/22 History [Lomotil 2.5-0.025 mg Tablet] Fenofibrate Nanocrystallized 145 mg PO DAILY 11/10/20 08/15/22 History [Fenofibrate] Potassium Chloride ER [K-Dur 20] 20 meq PO DAILY 11/10/20 08/15/22 History Tiotropium 2.5 Mcg/Puff [Spiriva 2 puff INHALATION RT-DAILY 11/10/20 08/15/22 History Respimat 2.5 Mcg] Thiamine [Vitamin B-1] 100 mg PO DAILY #30 tab 11/17/20 08/15/22 Rx [id number]-[id number] 1 tab PO DAILY 08/15/22 08/15/22 History [Folbic] Donepezil [Aricept] 10 mg PO HS 08/15/22 08/15/22 History Losartan Potassium 100 mg PO DAILY 08/15/22 08/15/22 History Allergies Allergy/AdvReac Type Severity Reaction Status Date / Time No Known Allergies Allergy Verified 08/14/22 20:54 Physical Exam Osteopathic Statement: *. No significant issues noted on an osteopathic structural exam other than those noted in the History and Physical/Consult. Vitals: Vital Signs Temp Pulse Pulse Resp BP BP Pulse Ox 08/17/22 10:27 96.3 F L 95 20 122/64 95 08/17/22 10:14 97.2 F L 100 20 101/65 98 08/17/22 10:00 104 H 22 91/58 08/17/22 09:30 93 7 L 08/17/22 09:00 93 11 L 129/51 08/17/22 08:37 96.2 F L 105 H 18 89/54 94 L 08/17/22 08:30 98 9 L 92/56 08/17/22 08:17 96.0 F L 100 18 85/49 100 08/17/22 08:07 96.0 F L 112 H 34 H 92/56 95 08/17/22 08:00 96.0 F L 18 86/59 98 08/17/22 07:30 105 H 84/58 100 08/17/22 07:00 114 H 12 86/61 95 08/17/22 06:30 131 H 24 72/54 96 08/17/22 06:00 124 H 12 88/72 94 L 08/17/22 05:30 123 H 14 89/61 95 08/17/22 05:00 114 H 20 96/67 96 08/17/22 04:30 122 H 20 101/86 96 08/17/22 04:00 97.4 F L 106 H 12 110/72 96 08/17/22 03:30 107 H 22 132/66 96 08/17/22 03:00 105 H 20 108/65 94 L 08/17/22 02:30 82 12 116/71 95 08/17/22 02:00 96 23 113/67 96 08/17/22 01:30 101 H 17 114/83 95 08/17/22 01:00 89 12 90/60 98 08/17/22 00:30 82 20 101/67 100 08/17/22 00:01 78 14 113/66 100 08/17/22 00:00 97.8 F 76 16 113/66 95 08/16/22 23:30 82 18 116/95 99 08/16/22 23:00 82 12 98/62 97 08/16/22 22:30 77 16 117/69 99 08/16/22 22:00 75 20 103/63 95 08/16/22 21:30 97.8 F 70 14 133/75 98 08/16/22 21:00 79 12 116/66 99 08/16/22 20:30 75 19 98/86 99 08/16/22 20:00 97.9 F 68 12 110/73 97 08/16/22 19:30 98 18 160/87 99 08/16/22 19:13 97.5 F L 76 22 160/87 98 08/16/22 19:00 28 H 149/45 99 08/16/22 18:43 97.4 F L 78 16 129/72 97 08/16/22 18:30 73 14 97 08/16/22 18:23 97.8 F 74 14 106/68 96 08/16/22 18:14 97.4 F L 75 18 113/69 98 08/16/22 18:00 79 23 113/69 93 L 08/16/22 17:30 78 9 L 99/62 95 08/16/22 17:10 79 17 119/65 93 L 08/16/22 17:00 102 H 20 96/67 93 L 08/16/22 16:50 75 14 96/67 94 L 08/16/22 16:40 81 17 98/63 96 10/27/22 16:30 71 13 90/63 08/16/22 16:20 76 11 L 90/63 08/16/22 16:10 98.2 F 81 21 97/62 98 08/16/22 16:08 93 14 99 08/16/22 16:00 16 96 08/16/22 14:40 150 H 106/65 08/16/22 12:09 98.2 F 98 16 88/53 96 Intake and Output 08/16/22 08/17/22 08/17/22 22:59 06:59 14:59 Intake Total 660 400 702 Output Total 3 1 Balance 657 400 701 Intake: Intake, IV Titration 350 400 100 Amount Sodium Chloride 0.9% 1, 350 400 100 000 ml @ 50 mls/hr IV . Q20H [facility] Rx#:[id number] Blood Product 310 602 Rc As-1 Unit 0 [id number] Rc As-1 Unit 310 [id number] Rc Pheresis As-3 Unit 277 [id number] Output: Urine 0 Stool 3 1 Other: Voiding Method Toilet Toilet Toilet # Voids 1 1 0 # Bowel Movements 1 1 Weight 45.1 kg Confused, restless, agitated, on room air. HEENT examination is grossly unremarkable. Neck supple. Full range of motion. No adenopathy thyromegaly or neck vein distention. Cardiovascular examination reveals regular rhythm rate. S1-S2 normal. No S3 or S4. No discernible murmur noted. Heart rate 95 bpm. Lungs reveal mostly clear breath sounds. Scattered rhonchi noted. No wheezes or crackles. Saturations 95% on room air. Abdomen soft, without bowel sounds. No masses or tenderness. Extremities are intact. No cyanosis clubbing or edema. Skin is without rash or lesion. Neurologic examination is difficult to assess. Results - Laboratory Findings CBC and BMP: 08/17/22 07:03 08/17/22 07:03 PT/INR, D-dimer PT 17.6 sec (9.0-12.0) H 08/16/22 15:08 INR 1.7 (<1.2) H 08/16/22 15:08 Abnormal lab findings: Abnormal Labs 08/14/22 08/14/22 08/14/22 21:29 21:29 21:29 RBC 3.25 L Hgb 10.8 L Hct 34.0 L MCV 104.5 H RDW Plt Count 462 H PT INR Sodium 129 L Potassium 6.5 H* 6.6 H* Carbon Dioxide 18 L BUN 33 H Creatinine 1.63 H Glucose 137 H POC Glucose (mg/dL) Osmolality Calcium Ur Specific [place] Urine Glucose (UA) Ur Random Sodium Crossmatch 08/15/22 08/15/22 08/15/22 02:29 02:29 07:01 RBC Hgb Hct MCV RDW Plt Count PT INR Sodium 127 L Potassium Carbon Dioxide 18 L BUN 34 H Creatinine 1.43 H Glucose POC Glucose (mg/dL) Osmolality Calcium 8.3 L Ur Specific [place] 1.050 H Urine Glucose (UA) 2+ H Ur Random Sodium <20 L Crossmatch 08/15/22 08/16/22 08/16/22 07:01 05:38 05:38 RBC 2.24 L Hgb 7.3 L D Hct 23.2 L MCV 103.7 H RDW Plt Count PT INR Sodium 128 L Potassium Carbon Dioxide BUN 28 H Creatinine Glucose POC Glucose (mg/dL) Osmolality 276 L Calcium 8.1 L Ur Specific [place] Urine Glucose (UA) Ur Random Sodium Crossmatch 08/16/22 08/16/22 08/16/22 15:08 15:08 15:54 RBC 1.82 L Hgb 6.2 L* Hct 19.1 L* MCV 104.9 H RDW Plt Count PT 17.6 H INR 1.7 H Sodium Potassium Carbon Dioxide BUN Creatinine Glucose POC Glucose (mg/dL) 122 H Osmolality Calcium Ur Specific [place] Urine Glucose (UA) Ur Random Sodium Crossmatch 08/16/22 08/17/22 08/17/22 16:31 00:09 07:03 RBC 2.14 L Hgb 7.1 L Hct 21.9 L MCV 102.5 H RDW Plt Count PT INR Sodium 134 L Potassium Carbon Dioxide 19 L BUN 39 H Creatinine Glucose 105 H POC Glucose (mg/dL) Osmolality Calcium 7.8 L Ur Specific [place] Urine Glucose (UA) Ur Random Sodium Crossmatch See Detail 08/17/22 07:03 RBC 1.76 L Hgb 5.8 L* Hct 18.6 L* MCV 106.0 H RDW 16.0 H Plt Count PT INR Sodium Potassium Carbon Dioxide BUN Creatinine Glucose POC Glucose (mg/dL) Osmolality Calcium Ur Specific [place] Urine Glucose (UA) Ur Random Sodium Crossmatch - Diagnostic Findings Chest x-ray: image reviewed Assessment and Plan Assessment: Acute upper GI bleed, secondary to do want no ulcer, status post EGD, 08/17/2022. Anemia, secondary to GI bleed, currently transfusing third unit of blood. History of chronic alcohol use, rule out impending alcohol withdrawal syndrome. History of dementia. History of COPD. History of hypertension. Plan: Plan dated 08/17/2022. The patient is seen in the intensive care unit, room 256. He's on room air. The patient may be exhibiting some early signs of alcohol withdrawal syndrome. I've asked the nurse to try some oral Ativan and/or IV phenobarbital. The patient is receiving his third unit of packed red blood cells. EGD was done this morning, and showed a duodenal ulcer, with no active bleeding. This morning's hemoglobin was 5.8. Additional suggestions are forthcoming. We will continue to follow the patient in the intensive care unit. Prognosis is guarded. Time with Patient: Greater than 30
[2022-08-17 12:47] VITALS: BMI 16.5
--- NOTE | 2022-08-17 13:01 | P.PN ---
Subjective Progress Note Date: 08/17/22 H&P Date: 08/15/22 Chief Complaint: Abdominal pain This is 72-year-old gentleman with past medical history of COPD, ongoing nicotine dependence, daily alcohol abuse and multiple other medical issues brought into the ER by his son for complaints of generalized weakness, abdominal pain. Son currently not at bedside. Denies nausea vomiting, positive nonbloody diarrhea over the last week. Denies recent antibiotic use. Denies fever or chills or diaphoresis. Reports he is drinking daily, 2-3 beers a day depending on the day. Appetite poor. Son reported to ER that patient fell approximately 2 weeks ago, without head trauma per son who witnessed the fall, with subsequent upper and middle back pain. Hypotensive, tachycardic on admission the blood p ressure of 86/56, heart rate 117. Afebrile, normal WBC. Potassium 6.6, received hyperkalemic cocktail, repeat level IV.7. Bicarbonate 18, BUN 33, creatinine 1.63/currently 34, 1.43. Sodium 127. UA negative chest x-ray reported old granulomatous disease.Lumbar and Thoracic spine reported negative for fractures, positive thoracolumbar dextroscoliosis. Abdomen and pelvis CT reported no acute abnormality. Denies chest pain, palpitations or shortness of breath. 08/16/2022 continues on fluid restrictions, IV fluids at 50 MLS an hour with sodium improving, increased to 128. Urine sodium less than 20, urine osmolality 478, TSH WNL. Renal function improving as well, BUN 28, creatinine 0.98. Diarrhea improving, tested negative for C. difficile colitis. Stool for occult blood positive, CBC pending. Preliminary stool culture pending. Sitter at bedside, sleepy, maintained on CIWA, currently scored at 4. Confused did not recognize PCP. Vital signs stable. 08/17/2022 yesterday afternoon patient became hypotensive, systolic blood pressures down into the high 80s, tachycardia with heart rates up into the 150s with exertion ,had large melena stool, hemoglobin dropped from 10.8-7.3, with a recheck reporting 6.2. INR 1.7. Gen. surgery consulted and evaluated patient. CT of the abdomen and pelvis initially reported no definite abnormalities;upon surgeon's review of CAT scan, abnormality noted in the distal stomach prepyloric region consistent with peptic ulcer disease with potential abscess or neoplasia. Transferred to ICU, discussed with professor of family medicine. Hemoglobin 5.8, platelets 272 this morning .currently has been transfused with 2 of the 3 units of packed RBCs ordered. Electrolytes within normal limits, bicarb 19, BUN 39, creatinine 1.14. EGD performed this morning reporting duodenal ulcer with no active bleeding, high risk for rebleed. Continues on PPI with Carafate added to med regimen. Objective - Vital Signs Vital signs: Vital Signs Temp 96.5 F L 08/17/22 10:53 Pulse 131 H 08/17/22 11:00 Resp 17 08/17/22 11:00 BP 115/65 08/17/22 10:53 Pulse Ox 95 08/17/22 10:53 FiO2 Intake & Output 08/16/22 08/17/22 08/17/22 18:59 06:59 18:59 Intake Total 150 910 702 Output Total 0 3 1 Balance 150 907 701 Weight 45.1 kg Intake: Intake, IV Titration 150 600 100 Amount Sodium Chloride 0.9% 1, 150 600 100 000 ml @ 50 mls/hr IV . Q20H [facility] Rx#:[id number] Blood Product 0 310 602 Rc As-1 Unit 0 [id number] Rc As-1 Unit 0 310 [id number] Rc Pheresis As-3 Unit 277 [id number] Output: Urine 0 Stool 3 1 Other: Voiding Method Toilet Toilet Toilet # Voids 1 0 # Bowel Movements 1 1 - Exam GENERAL: Thin built cachectic,significant muscle atrophy, HEENT: Pupils are round and equally reacting to light. EOMI. No scleral icterus. No conjunctival pallor. Normocephalic, atraumatic. CARDIOVASCULAR: S1 and S2 present. No murmurs, rubs, or gallops. PULMONARY: Equal air entry, unlabored, scattered rhonchi with no wheezing or crackles. ABDOMEN: Soft, nontender, nondistended, hypoactive bowel sounds. No palpable organomegaly. EXTREMITIES: No cyanosis, clubbing, or pedal edema. Positive DP pulses NEUROLOGICAL: Limited, mild agitation, alert and oriented to person currently SKIN: Warm and dry, No rashes. - Labs CBC & Chem 7: 08/17/22 07:03 08/17/22 07:03 Labs: Abnormal Lab Results - Last 24 Hours (Table) 08/16/22 08/16/22 08/16/22 Range/Units 05:38 15:08 15:08 RBC 2.24 L 1.82 L (4.30-5.90) m/uL Hgb 7.3 L D 6.2 L* (13.0-17.5) gm/dL Hct 23.2 L 19.1 L* (39.0-53.0) % MCV 103.7 H 104.9 H (80.0-100.0) fL RDW (11.5-15.5) % PT 17.6 H (9.0-12.0) sec INR 1.7 H (<1.2) Sodium (137-145) mmol/L Carbon Dioxide (22-30) mmol/L BUN (9-20) mg/dL Glucose (74-99) mg/dL POC Glucose (mg/dL) (70-110) mg/dL Calcium (8.4-10.2) mg/dL Crossmatch 08/16/22 08/16/22 08/17/22 Range/Units 15:54 16:31 00:09 RBC 2.14 L (4.30-5.90) m/uL Hgb 7.1 L (13.0-17.5) gm/dL Hct 21.9 L (39.0-53.0) % MCV 102.5 H (80.0-100.0) fL RDW (11.5-15.5) % PT (9.0-12.0) sec INR (<1.2) Sodium (137-145) mmol/L Carbon Dioxide (22-30) mmol/L BUN (9-20) mg/dL Glucose (74-99) mg/dL POC Glucose (mg/dL) 122 H (70-110) mg/dL Calcium (8.4-10.2) mg/dL Crossmatch See Detail 08/17/22 08/17/22 Range/Units 07:03 07:03 RBC 1.76 L (4.30-5.90) m/uL Hgb 5.8 L* (13.0-17.5) gm/dL Hct 18.6 L* (39.0-53.0) % MCV 106.0 H (80.0-100.0) fL RDW 16.0 H (11.5-15.5) % PT (9.0-12.0) sec INR (<1.2) Sodium 134 L (137-145) mmol/L Carbon Dioxide 19 L (22-30) mmol/L BUN 39 H (9-20) mg/dL Glucose 105 H (74-99) mg/dL POC Glucose (mg/dL) (70-110) mg/dL Calcium 7.8 L (8.4-10.2) mg/dL Crossmatch Assessment and Plan Assessment: Acute upper GI bleed, computed tomography scan initially reported no acute abnormality, suggestive of peptic ulcer disease as per surgeon's review, status post EGD nonbleeding duodenal ulcer, high risk for rebleed. Hyperkalemia secondary to acute renal failure, Acute renal failure,prerenal secondary to poor oral intake, diarrhea, hypotension, hypovolemia. Baseline Creatinine 1.0, improving with IV fluid hyd ration Hyponatremia, hypovolemic, improving Alcohol abuse, daily, DTs Acute metabolic and toxic encephalopathy secondary to all the above including alcohol abuse. Metabolic acidosis secondary to acute renal failure, diarrhea Dehydration secondary to poor oral intake Moderate Protein calorie malnutrition, BMI 20.0 Nicotine dependence Hypomagnesemia Recent fall. Plan: Continue on current medication regime ,monitoring and symptomatic treatment. Maintain PPI, IV fluid hydration,close monitoring of hemoglobin .transfusion of third unit of packed RBCs pending .Close monitoring of electrolytes, renal function with repeat labs ordered for a.m. Stool cultures in progress. The impression and plan of care has been dictated as directed. : I performed a history and examination of this patient, discussed the same with the dictator. I agree with the dictator's note ,documented as a scribe. Any additional findings or plans will be noted.
[2022-08-17] MEDS ORDERED: PHENobarbital SODIUM 130 MG/ML 1 ML VIAL IM STA (13:25)
[2022-08-17 15:21] LABS: Anisocytosis Slight; HCT 23.6 % (39.0-53.0); Hypochromasia Slight; MCV 94.3 fL (80.0-100.0); Mean Platelet Volume 9.5; Platelet Count 164 k/uL (150-450); Poikilocytosis Slight
[2022-08-17 15:31] LABS: MCH 32.1 pg (25.0-35.0); RDW 16.9 % (11.5-15.5)
[2022-08-17 16:13] LABS: Eosinophils # (M) 0.07 k/uL (0-0.7); Lymphocytes # (M) 1.54 k/uL (1.0-4.8); Monocytes # (M) 0.35 k/uL (0-1.0); Neutrophils # (M) 5.04 k/uL (1.3-7.7); Neutrophils % (M) 72 %; Nucleated Red Blood Cells 0 /100 WBC (0-0); Target Cells Present; Total Cells Counted 100
[2022-08-17 20:45] LABS: Anisocytosis Slight; HCT 22.8 % (39.0-53.0); HGB 7.9 gm/dL (13.0-17.5); Hypochromasia Slight; MCHC 34.6 g/dL (31.0-37.0); MCV 95.4 fL (80.0-100.0); Macrocytosis Slight; Mean Platelet Volume 9.6; Platelet Count 175 k/uL (150-450); Poikilocytosis Slight; RBC 2.39 m/uL (4.30-5.90); RDW 16.8 % (11.5-15.5); WBC 7.9 k/uL (3.8-10.6)
[2022-08-18] MEDS ORDERED: PHENobarbitaL 16.2 MG TAB PO ONE ×2 (01:30→05:30)
[2022-08-18] MEDS: LORazepam 1 MG TAB PO PRN (02:22)
[2022-08-18 04:45] LABS: Anisocytosis Slight; Basophils % (A) 0 %; Eosinophils % (A) 0 %; HCT 20.4 % (39.0-53.0); HGB 7.1 gm/dL (13.0-17.5); Hypochromasia Slight; Lymphocytes # (A) 1.1 k/uL (1.0-4.8); Lymphocytes % (A) 12 %; MCH 33.2 pg (25.0-35.0); MCHC 34.9 g/dL (31.0-37.0); MCV 95.3 fL (80.0-100.0); Macrocytosis Slight; Mean Platelet Volume 10.1; Monocytes # (A) 0.4 k/uL (0-1.0); Monocytes % (A) 5 %; Neutrophils # (A) 7.2 k/uL (1.3-7.7); Neutrophils % (A) 82 %; Platelet Count 194 k/uL (150-450); Poikilocytosis Slight; RBC 2.14 m/uL (4.30-5.90); RDW 17.2 % (11.5-15.5); WBC 8.8 k/uL (3.8-10.6)
[2022-08-18 04:50] LABS: Albumin 1.9 g/dL (3.5-5.0); Calcium 7.7 mg/dL (8.4-10.2); Potassium 3.6 mmol/L (3.5-5.1); Total Bilirubin 0.7 mg/dL (0.2-1.3); Total Protein 3.7 g/dL (6.3-8.2)
[2022-08-18] MEDS: SUCRALFATE 1 GM TAB PO SCH (06:48)
[2022-08-18 07:58] LABS: Anisocytosis Slight; Hypochromasia Slight; MCH 31.8 pg (25.0-35.0); MCHC 33.1 g/dL (31.0-37.0); Macrocytosis Slight; Mean Platelet Volume 10.7; Platelet Count 201 k/uL (150-450); Poikilocytosis Moderate; RBC 1.92 m/uL (4.30-5.90); RDW 17.9 % (11.5-15.5); WBC 11.3 k/uL (3.8-10.6)
[2022-08-18 07:59] LABS: HCT 18.5 % (39.0-53.0); HGB 6.1 gm/dL (13.0-17.5)
[2022-08-18 08:29] LABS: Glucose,Whole Blood 90 mg/dL (70-110)
[2022-08-18] MEDS ORDERED: Potassium Replacement Protocol 1 EACH MISC MISCELLANE PRN (08:51)
[2022-08-18] MEDS: SODIUM CHLORIDE 0.9% 1,000 ML IV SCH (08:52)
[2022-08-18] MEDS: PANTOPRAZOLE 40 MG/10 ML VIAL IVP SCH ×2 (08:52→20:32)
[2022-08-18] MEDS: POTASSIUM CHLORIDE 10 MEQ in WATER FOR INJECTION 1 100ML.BAG IVPB SCH ×2 (09:12→10:46)
[2022-08-18] MEDS ORDERED: LORazepam 1 MG/0.5 ML VIAL IV PRN ×3 (09:13)
--- NOTE | 2022-08-18 09:18 | P.PN ---
Progress Note - Text Progress Note Date: 08/18/22 Patient is confused his repeat hemoglobin 6.1. On exam vital signs are stable. Abdomen soft. Significant duodenal ulcer. Patient received 2 units of packed red cells today. He is already received 3 units previously. Patient will be closely observed.
[2022-08-18 09:20] LABS: Magnesium 2.2 mg/dL (1.6-2.3)
[2022-08-18 09:51] LABS: Lymphocytes # (M) 0.68 k/uL (1.0-4.8); Monocytes # (M) 0.23 k/uL (0-1.0); Neutrophils % (M) 92 %; Nucleated Red Blood Cells 0 /100 WBC (0-0); Total Cells Counted 100
[2022-08-18 09:52] LABS: Target Cells Present
--- NOTE | 2022-08-18 10:26 | P.PN ---
Subjective Patient is seen for follow-up for acute kidney injury and hyponatremia. He has had GI bleed. EGD showed duodenal ulcer with no active bleeding. Patient had 2 bowel movements last night with clots. Hemoglobin this morning 6.1 and receiving 2 units packed RBCs. Objective - Vital Signs Vital signs: Vital Signs Temp 96.9 F L 08/18/22 08:00 Pulse 113 H 08/18/22 09:30 Resp 18 08/18/22 09:30 BP 82/63 08/18/22 09:30 Pulse Ox 100 08/18/22 09:30 FiO2 Intake & Output 08/17/22 08/18/22 08/18/22 18:59 06:59 18:59 Intake Total 1887 600 50 Output Total 4 0 Balance 1883 600 50 Weight 45.1 kg 47.9 kg Intake: IV 50 600 50 0.9 50 600 50 Intake, IV Titration 600 Amount Desmopressin Acetate 14 50 mcg In Sodium Chloride 0. 9% 50 ml @ 200 mls/hr IVPB ONCE ONE Rx#: [id number] Magnesium Sulfate-D5w Pmx 200 1 gm In Dextrose/Water 1 100ml.bag @ 100 mls/hr IVPB Q1H [facility] Rx#: [id number] Sodium Chloride 0.9% 1, 350 000 ml @ 50 mls/hr IV . Q20H [facility] Rx#:[id number] Blood Product 1237 Rc As-1 Unit 310 [id number] Rc Pheresis As-3 Unit 277 [id number] Output: Urine 0 0 Stool 4 Other: Voiding Method Urinal Urinal Diaper Diaper Incontinent Incontinent # Voids 1 1 # Bowel Movements 1 1 1 - Exam Awake, comfortable, not in any acute distress Patient is confused Examination of the heart S1 and S2 Examination of the lungs bilateral breath sounds are heard Abdomen is soft nontender Examination of lower extremity shows no edema. - Labs CBC & Chem 7: 08/18/22 06:57 08/18/22 03:25 Labs: Abnormal Lab Results - Last 24 Hours (Table) 08/16/22 08/17/22 08/17/22 Range/Units 16:31 14:55 20:25 WBC (3.8-10.6) k/uL RBC 2.50 L 2.39 L (4.30-5.90) m/uL Hgb 8.0 L D 7.9 L (13.0-17.5) gm/dL Hct 23.6 L 22.8 L (39.0-53.0) % RDW 16.9 H 16.8 H (11.5-15.5) % Neutrophils # (Manual) (1.3-7.7) k/uL Lymphocytes # (Manual) (1.0-4.8) k/uL Chloride (98-107) mmol/L Carbon Dioxide (22-30) mmol/L BUN (9-20) mg/dL Glucose (74-99) mg/dL Calcium (8.4-10.2) mg/dL Alkaline Phosphatase (38-126) U/L Total Protein (6.3-8.2) g/dL Albumin (3.5-5.0) g/dL Crossmatch See Detail 08/18/22 08/18/22 08/18/22 Range/Units 03:25 03:25 06:57 WBC 11.3 H (3.8-10.6) k/uL RBC 2.14 L 1.92 L (4.30-5.90) m/uL Hgb 7.1 L 6.1 L* (13.0-17.5) gm/dL Hct 20.4 L 18.5 L* (39.0-53.0) % RDW 17.2 H 17.9 H (11.5-15.5) % Neutrophils # (Manual) 10.40 H (1.3-7.7) k/uL Lymphocytes # (Manual) 0.68 L (1.0-4.8) k/uL Chloride 109 H (98-107) mmol/L Carbon Dioxide 21 L (22-30) mmol/L BUN 43 H (9-20) mg/dL Glucose 69 L (74-99) mg/dL Calcium 7.7 L (8.4-10.2) mg/dL Alkaline Phosphatase 25 L (38-126) U/L Total Protein 3.7 L (6.3-8.2) g/dL Albumin 1.9 L (3.5-5.0) g/dL Crossmatch Microbiology - Last 24 Hours (Table) 08/15/22 15:07 Stool Culture - Preliminary Stool Assessment and Plan Assessment: 1. Acute kidney injury mostly prerenal from poor intake and diarrhea, improved with IV hydration. Creatinine 1.60 on admission and is 1.14 today. Baseline creatinine near 1 from January 2022. No proteinuria on UA. No hydronephrosis noted on CAT scan. 2. Hyponatremia from poor solute intake. Urine sodium less than 20 and urine osmolality 478. TSH normal. Better. 3. Metabolic acidosis secondary to acute kidney injury, GI losses and IV fluids. On oral bicarbonate. 4. Hypomagnesemia from poor intake and GI losses. 5. Hyperkalemia from acute kidney injury, acidosis, GIB and potassium supplementation. Improved with medical management. 6. GI bleed currently receiving blood transition. EGD showed duodenal ulcer without active bleeding Plan: Continue saline and sodium chloride tablets Replace potassium Repeat labs in a.m.
--- NOTE | 2022-08-18 11:02 | P.PN ---
Subjective Progress Note Date: 08/18/22 This is a 72 year old male who is a patient of Dr Patel. He is being closely monitored in intensive care unit. Patient initially presents to the hospital for generalized weakness and abdominal pain episodes of diarrhea at home. Patient reports daily alcohol use with falling at home. He does present with low blood pressures. Patient presents with acute renal failure, today labs are showing a BUN of 43, creatinine 1.11. He is being followed closely by nephrology and has been continued on oral sodium bicarbonate tablets. He is also receiving IV fluids at normal saline at 50 mL . He is on IV Protonix twice a day. Patient today has altered mentation he is currently alert 1 he is unaware that he is in the hospital. He is being monitored in intensive care unit on Ativan protocol for acute alcohol withdrawal symptoms. He is currently not tolerating oral medication and has been holding them in his mouth. For this reason we adjusted his Ativan to IV. Hemoglobin was found to be 6.1 today with reports of 2 dark maroon bowel movements. Noted clots. He is being followed by surgery and is or dered for 2 units of packed red blood cells today. We'll repeat a hemoglobin tomorrow. He is afebrile, heart rate 107, blood pressure 87/76, on 2L nasal cannula. Review of Systems Constitutional: Denied any fatigue denied any fever. Cardio vascular: denied any chest pain, palpitations Gastrointestinal: denied any nausea, vomiting, diarrhea Pulmonary: Denied any shortness of breath cough Neurologic denied any new focal deficits All inpatient medications were reviewed and appropriate changes in these medications as dictated in the interval history and assessment and plan. PHYSICAL EXAMINATION: GENERAL: The patient is alert and oriented x1, not in any acute distress. Well developed, well nourished. HEENT: Pupils are round and equally reacting to light. EOMI. No scleral icterus. No conjunctival pallor. Normocephalic, atraumatic. No pharyngeal erythema. No thyromegaly. CARDIOVASCULAR: S1 and S2 present. No murmurs, rubs, or gallops. PULMONARY: Chest is clear to auscultation, no wheezing or crackles. ABDOMEN: Soft, nontender, nondistended, normoactive bowel sounds. No palpable organomegaly. MUSCULOSKELETAL: No joint swelling or deformity. EXTREMITIES: No cyanosis, clubbing, or pedal edema. NEUROLOGICAL: Gross neurological examination did not reveal any focal deficits. SKIN: No rashes. Assessment and plan Acute upper GI bleed, computed tomography scan initially reported no acute abnormality, suggestive of peptic ulcer disease as per surgeon's review, status post EGD nonbleeding duodenal ulcer, high risk for rebleed, he did have 2 maroon colored bowel movements overnight and hgb today has dropped to 6.1. Patient will receive 2 units of packed red blood cells today. Repeat hemoglobin. Close monitoring and general surgery is following patient closely. Hyperkalemia secondary to acute renal failure, currently improved Acute renal failure,prerenal secondary to poor oral intake, diarrhea, hypotension, hypovolemia. Baseline Creatinine 1.0, improving with IV fluid hydration. creatinine today is 1.11. Hyponatremia, hypovolemic, resolved Alcohol abuse, daily, DTs - Currently being monitored in intensive care unit on IV ativan CIWA protocol Acute metabolic and toxic encephalopathy secondary to all the above including alcohol abuse. Metabolic acidosis secondary to acute renal failure, diarrhea Dehydration secondary to poor oral intake Moderate Protein calorie malnutrition, BMI 20.0 Nicotine dependence Hypomagnesemia Recent fall patient has been evaluated by physical therapy with current recommendations for sub acute rehab on discharge. Full Code Plan Patient to receive 2 units of packed red blood cells. Continue to monitor closely in the intensive care unit. Patient is being followed closely by general surgery. Repeat labs in AM. Continue ativan CIWA protocol. The impression and plan of care has been dictated by Maria Esther Gutiérrez, Nurse Practitioner as directed. Dr. Cam MD I have performed a history and physical examination and medical decision making of this patient, discussed the same with the dictator, and agree with the dictators assessment and plan as written, documented as a scribe. Based on total visit time, I have performed more than 50% of this visit. Objective - Vital Signs Vital signs: Vital Signs Temp 97.8 F 08/18/22 10:37 Pulse 116 H 08/18/22 10:37 Resp 16 08/18/22 10:37 BP 96/45 08/18/22 10:37 Pulse Ox 100 08/18/22 10:37 FiO2 Intake & Output 08/17/22 08/18/22 08/18/22 18:59 06:59 18:59 Intake Total 1887 600 300 Output Total 4 0 0 Balance 1883 600 300 Weight 45.1 kg 47.9 kg Intake: IV 50 600 200 0.9 50 600 200 Intake, IV Titration 600 100 Amount Desmopressin Acetate 14 50 mcg In Sodium Chloride 0. 9% 50 ml @ 200 mls/hr IVPB ONCE ONE Rx#: [id number] Magnesium Sulfate-D5w Pmx 200 1 gm In Dextrose/Water 1 100ml.bag @ 100 mls/hr IVPB Q1H [facility] Rx#: [id number] Potassium Chloride 10 meq 100 In Water For Injection 1 100ml.bag @ 100 mls/hr IVPB Q1H [facility] Rx#: [id number] Sodium Chloride 0.9% 1, 350 000 ml @ 50 mls/hr IV . Q20H [facility] Rx#:[id number] Blood Product 1237 0 Rc As-1 Unit 0 [id number] Rc As-1 Unit 310 [id number] Rc Pheresis As-3 Unit 277 [id number] Output: Urine 0 0 0 Stool 4 Other: Voiding Method Urinal Urinal Diaper Diaper Incontinent Incontinent # Voids 1 1 # Bowel Movements 1 1 1 - Labs CBC & Chem 7: 08/18/22 06:57 08/18/22 03:25 Labs: Abnormal Lab Results - Last 24 Hours (Table) 08/16/22 08/17/22 08/17/22 Range/Units 16:31 14:55 20:25 WBC (3.8-10.6) k/uL RBC 2.50 L 2.39 L (4.30-5.90) m/uL Hgb 8.0 L D 7.9 L (13.0-17.5) gm/dL Hct 23.6 L 22.8 L (39.0-53.0) % RDW 16.9 H 16.8 H (11.5-15.5) % Neutrophils # (Manual) (1.3-7.7) k/uL Lymphocytes # (Manual) (1.0-4.8) k/uL Chloride (98-107) mmol/L Carbon Dioxide (22-30) mmol/L BUN (9-20) mg/dL Glucose (74-99) mg/dL Calcium (8.4-10.2) mg/dL Alkaline Phosphatase (38-126) U/L Total Protein (6.3-8.2) g/dL Albumin (3.5-5.0) g/dL Crossmatch See Detail 08/18/22 08/18/22 08/18/22 Range/Units 03:25 03:25 06:57 WBC 11.3 H (3.8-10.6) k/uL RBC 2.14 L 1.92 L (4.30-5.90) m/uL Hgb 7.1 L 6.1 L* (13.0-17.5) gm/dL Hct 20.4 L 18.5 L* (39.0-53.0) % RDW 17.2 H 17.9 H (11.5-15.5) % Neutrophils # (Manual) 10.40 H (1.3-7.7) k/uL Lymphocytes # (Manual) 0.68 L (1.0-4.8) k/uL Chloride 109 H (98-107) mmol/L Carbon Dioxide 21 L (22-30) mmol/L BUN 43 H (9-20) mg/dL Glucose 69 L (74-99) mg/dL Calcium 7.7 L (8.4-10.2) mg/dL Alkaline Phosphatase 25 L (38-126) U/L Total Protein 3.7 L (6.3-8.2) g/dL Albumin 1.9 L (3.5-5.0) g/dL Crossmatch Microbiology - Last 24 Hours (Table) 08/15/22 15:07 Stool Culture - Preliminary Stool
[2022-08-18] MEDS: SODIUM BICARBONATE TAB 650 MG TAB PO SCH (11:22)
[2022-08-18] MEDS: THIAMINE 100 MG TAB PO SCH (11:22)
[2022-08-18] MEDS: SODIUM CHLORIDE TAB 1 GM TAB PO SCH (11:22)
--- NOTE | 2022-08-18 12:30 | P.PN ---
Subjective Progress Note Date: 08/18/22 Principal diagnosis: GI bleed. Pulmonary/critical care consult dated 08/17/2022. 72-year-old male who was admitted on August 15 for gastrointestinal bleed, acute kidney injury, and abdominal pain. Because of ongoing bleeding, the patient was transferred to the intensive care unit on August 16. This morning, he underwent EGD, and was found to have a duodenal ulcer, without active bleeding, although, according to the nurse, the patient was at high risk for rebleeding. The patient has received or will receive 3 units of packed red blood cells. His hemoglobin this morning was 5.8. He is on room air. The patient does receive saline at 50 mL an hour. The patient has a history of dementia, COPD, and chronic alcohol use. Unable to quantitate how much alcohol he drinks. The patient's very agitated in bed currently. White count 7.6, hemoglobin 5.8, hematocrit 18.6, platelet count 272,000. PT 17.6 INR 1.7. Sodium 134, potassium 4.4, chlorides 106, CO2 19, BUN 39, creatinine 1.1. Chest x-ray shows no active cardiopulmonary disease. CT of the abdomen and pelvis shows no acute abnormality. Progress note dated 08/18/2022. The patient is again seen in the intensive care unit, room 256. He was seen yesterday in consultation for GI bleed. His hemoglobin this morning was 6.1. He'll get 2 additional units of blood. He is on O2 at 2 L. He is getting sali ne at 50 mL an hour. He would've had 5 total units of blood after the 2 today. The patient is a bit agitated, and likely having some alcohol withdrawal syndrome. Labs today include a white count 3, hemoglobin 6.1, hematocrit 18.5, and platelet count 201,000. Sodium 137, potassium 3.6, chlorides 109, CO2 21, anion gap 7, BUN 43, and creatinine 1.11. Glucose 69. Albumin is 1.9. Chest x-ray shows no acute process. Objective - Vital Signs Vital signs: Vital Signs Temp 97.4 F L 08/18/22 11:07 Pulse 113 H 08/18/22 11:07 Resp 16 08/18/22 11:07 BP 93/72 08/18/22 11:07 Pulse Ox 100 08/18/22 10:47 FiO2 Intake & Output 08/17/22 08/18/22 08/18/22 18:59 06:59 18:59 Intake Total 1887 600 500 Output Total 4 0 0 Balance 1883 600 500 Weight 45.1 kg 47.9 kg Intake: IV 50 600 300 0.9 50 600 300 Intake, IV Titration 600 200 Amount Desmopressin Acetate 14 50 mcg In Sodium Chloride 0. 9% 50 ml @ 200 mls/hr IVPB ONCE ONE Rx#: [id number] Magnesium Sulfate-D5w Pmx 200 1 gm In Dextrose/Water 1 100ml.bag @ 100 mls/hr IVPB Q1H [facility] Rx#: [id number] Potassium Chloride 10 meq 200 In Water For Injection 1 100ml.bag @ 100 mls/hr IVPB Q1H [facility] Rx#: [id number] Sodium Chloride 0.9% 1, 350 000 ml @ 50 mls/hr IV . Q20H [facility] Rx#:[id number] Blood Product 1237 0 Rc As-1 Unit 0 [id number] Rc As-1 Unit 310 [id number] Rc Pheresis As-3 Unit 277 [id number] Output: Urine 0 0 0 Stool 4 Other: Voiding Method Urinal Urinal Urinal Diaper Diaper Diaper Incontinent Incontinent Incontinent # Voids 1 1 # Bowel Movements 1 1 1 - Exam Confused, restless, agitated, on 2 L of oxygen. HEENT examination is grossly unremarkable. Neck supple. Full range of motion. No adenopathy thyromegaly or neck vein distention. Cardiovascular examination reveals regular rhythm rate. S1-S2 normal. No S3 or S4. No discernible murmur noted. Heart rate 105 bpm. Lungs reveal mostly clear breath sounds. Scattered rhonchi noted. No wheezes or crackles. Saturations 100 % on 2 L. Abdomen soft, without bowel sounds. No masses or tenderness. Extremities are intact. No cyanosis clubbing or edema. Skin is without rash or lesion. Neurologic examination is difficult to assess. - Labs CBC & Chem 7: 08/18/22 06:57 08/18/22 03:25 Labs: Abnormal Lab Results - Last 24 Hours (Table) 08/16/22 08/17/22 08/17/22 Range/Units 16:31 14:55 20:25 WBC (3.8-10.6) k/uL RBC 2.50 L 2.39 L (4.30-5.90) m/uL Hgb 8.0 L D 7.9 L (13.0-17.5) gm/dL Hct 23.6 L 22.8 L (39.0-53.0) % RDW 16.9 H 16.8 H (11.5-15.5) % Neutrophils # (Manual) (1.3-7.7) k/uL Lymphocytes # (Manual) (1.0-4.8) k/uL Chloride (98-107) mmol/L Carbon Dioxide (22-30) mmol/L BUN (9-20) mg/dL Glucose (74-99) mg/dL Calcium (8.4-10.2) mg/dL Alkaline Phosphatase (38-126) U/L Total Protein (6.3-8.2) g/dL Albumin (3.5-5.0) g/dL Crossmatch See Detail 08/18/22 08/18/22 08/18/22 Range/Units 03:25 03:25 06:57 WBC 11.3 H (3.8-10.6) k/uL RBC 2.14 L 1.92 L (4.30-5.90) m/uL Hgb 7.1 L 6.1 L* (13.0-17.5) gm/dL Hct 20.4 L 18.5 L* (39.0-53.0) % RDW 17.2 H 17.9 H (11.5-15.5) % Neutrophils # (Manual) 10.40 H (1.3-7.7) k/uL Lymphocytes # (Manual) 0.68 L (1.0-4.8) k/uL Chloride 109 H (98-107) mmol/L Carbon Dioxide 21 L (22-30) mmol/L BUN 43 H (9-20) mg/dL Glucose 69 L (74-99) mg/dL Calcium 7.7 L (8.4-10.2) mg/dL Alkaline Phosphatase 25 L (38-126) U/L Total Protein 3.7 L (6.3-8.2) g/dL Albumin 1.9 L (3.5-5.0) g/dL Crossmatch Microbiology - Last 24 Hours (Table) 08/15/22 15:07 Stool Culture - Preliminary Stool Assessment and Plan Assessment: Acute upper GI bleed, secondary to do want no ulcer, status post EGD, 08/17/2022. Anemia, secondary to GI bleed, Status post 5 units of packed red blood cells. History of chronic alcohol use, rule out impending alcohol withdrawal syndrome. History of dementia. History of COPD. History of hypertension. Plan: Plan dated 08/17/2022. The patient is seen in the intensive care unit, room 256. He's on room air. The patient may be exhibiting some early signs of alcohol withdrawal syndrome. I've asked the nurse to try some oral Ativan and/or IV phenobarbital. The patient is receiving his third unit of packed red blood cells. EGD was done this morning, and showed a duodenal ulcer, with no active bleeding. This morning's hemoglobin was 5.8. Additional suggestions are forthcoming. We will continue to follow the patient in the intensive care unit. Prognosis is guarded. Plan dated 08/18/2022. The patient remains in the intensive care unit, room 256. He's on 2 L. He is getting saline at 50 mL an hour. His hemoglobin this morning was 6.1. He'll be getting additional 2 units of packed red blood cells today, which will make a total of 5 units of PRBCs. The patient's agitated, and likely has some alcohol withdrawal syndrome. He is currently receiving Ativan as needed. Additional recommendations and suggestions are forthcoming. Labs, x-rays, and medications are reviewed. Time with Patient: Less than 30
[2022-08-18 14:27] VITALS: TEMP 97.4
--- NOTE | 2022-08-18 14:29 | XR ---
EXAMINATION TYPE: XR chest 1V portable DATE OF EXAM: 08/18/2022 COMPARISON: CT chest 06/05/2010, chest x-ray 08/14/2022 INDICATION: Hypoxia TECHNIQUE: Single frontal view of the chest is obtained. FINDINGS: The heart size is normal. The pulmonary vasculature is normal. There are scattered stable rounded densities within the bilateral lung ball present previously. IMPRESSION: 1. No acute pulmonary process.
[2022-08-18] MEDS ORDERED: MORPHINE SULFATE (100 MG/2 ML) 100 MG in SODIUM CHLORIDE 0.9% 100 ML IV SCH (14:45)
[2022-08-18] MEDS ORDERED: ACETAMINOPHEN SUPPOSITORY 650 MG SUPP RECTAL PRN (14:51)
[2022-08-18] MEDS ORDERED: ATROPINE OPHTH SOLN 1% 5ML BTL SUBLINGUAL PRN (19:59)
[2022-08-18] MEDS ORDERED: SCOPOLAMINE 1 MG/72 HR PATCH TRANSDERM SCH (20:00)
[2022-08-19 05:52] VITALS: BP 46/24; PULSE 78; RESP 14
--- NOTE | 2022-08-19 14:46 | P.DS ---
Providers Date of admission: 08/15/22 01:18 Attending physician: Thaddeus Patel Consults: 08/15/22 00:03 Consult Physician Routine Consulting Provider: Kunal Díaz Consult Reason/Comments: NEVAEH Do you want consulting provider notified?: Yes 08/16/22 14:49 Consult Physician Stat Consulting Provider: Rosalino Murphy Consult Reason/Comments: BLOOD IN STOOL Do you want consulting provider notified?: Already Contacted 08/17/22 09:13 Consult Physician Routine Consulting Provider: Ike Cooley Consult Reason/Comments: ICU managment Do you want consulting provider notified?: Already Contacted Primary care physician: Thaddeus Patel Hospital Course: Final diagnosis Acute upper GI bleed with computed tomography scan showing possible peptic ulcer disease patient during EGD showing nonbleeding duodenal ulcer with higher risk for rebleed continue to have bloody stool Hyperkalemia secondary to acute renal failure improved, Acute renal failure prerenal secondary to poor oral intake, diarrhea, hyperten rubén, hypokalemia, improved with IV fluids Hyponatremia hypovolemic Acute alcohol withdrawal with delirium tremens monitored in ICU Acute metabolic and toxic encephalopathy secondary to all of the above including alcohol abuse Metabolic acidosis secondary to acute renal failure, diarrhea Dehydration secondary to poor oral intake Moderate protein calorie malnutrition with BMI 20.0 Continue nicotine dependence Chronic daily alcohol abuse Hypomagnesemia Recent fall at home secondary to generalized medical debility No Code Patient on 08/19/2022 at 5:15. Family notified by nursing. Hospital course This is a 72-year-old male who follows with Dr. Patel in primary care setting. Patient is a medical history significant for chronic alcohol abuse as well as continue nicotine dependence, COPD. Patient presents to the hospital with concern for fall with generalized weakness as well as abdominal pain. Patient reports nonbloody diarrhea over the last week with no nausea vomiting. He has had no fever or chills. Has poor appetite. Patient does report drinking daily to 3 beers per day. Patient to present with hypotension with a blood pressure 90s/50s with a heart rate of 110. Potassium 6.6 and was treated with high hyperkalemic cocktail repeat level 4.7. Also had acute renal injury on admission with a creatinine of 1.63. Sodium 127. He did have x-rays completed which are showing negative for fracture there is some positive thoracolumbar dextroscoliosis. Abdominal pelvis CT reviewed by surgeon showing possible peptic ulcer disease. Patient was initially monitored on the medical floor. Patient was sent to the ICU for acute alcohol withdrawal delirium tremens and was maintained on Ativan CIWA protocol there is also evidence for acute GI bleed patient had 2 bloody bowel movements and for this reason he underwent EGD on 08/17/22 showing nonbleeding duodenal ulcer with high risk for rebleed. Patient began to have maroon colored stool overnight in the ICU and on 08/18/22 his hemoglobin did drop to 6.1 and initial 2 units of packed red blood cells were ordered. Patient then began to have bright red rectal bleeding and Dr. Arnett was notified. Patient began to experience hypotension with a blood pressure dropping into the 60s systolic as well as an increasing heart rate into the 120s. 2 additional units of packed red blood cells were ordered. After dis cussion between general surgeon Dr. Arnett with patients son Dung, the patients son and next of kin decided against surgical intervention as opted for comfort care measures. Patients son at the beside, hospice was consulted, and comfort care measures began. Patient was alert x 1 and had been having difficulty swallowing his oral medications earlier that day. He was placed NPO earlier in the day. Patient was started on morphine gtt for comfort at 1552 on 11/18/21. Patient passed way on 08/19/22 at 515. Thank you following us participate in the care of this patient The impression and plan of care has been dictated by Maria Esther Gutiérrez, Nurse Practitioner as directed. Dr. Cam MD I have performed a history and physical examination and medical decision making of this patient, discussed the same with the dictator, and agree with the dictators assessment and plan as written, documented as a scribe. Based on total visit time, I have performed more than 50% of this visit. Plan - Discharge Summary Discharge Rx Participant: No New Discharge Prescriptions: No Action Potassium Chloride ER [K-Dur 20] 20 meq PO DAILY Diphenoxylate HCl/Atropine [Lomotil 2.5-0.025 mg Tablet] 1 tab PO DAILY Fenofibrate Nanocrystallized [Fenofibrate] 145 mg PO DAILY Tiotropium 2.5 Mcg/Puff [Spiriva Respimat 2.5 Mcg] 2 puff INHALATION RT-DAILY Thiamine [Vitamin B-1] 100 mg PO DAILY #30 tab Donepezil [Aricept] 10 mg PO HS Keqaxxppzbegpj-[id number]-Hjamrlibds [Folbic] 1 tab PO DAILY Losartan Potassium 100 mg PO DAILY Discharge Medication List Diphenoxylate HCl/Atropine [Lomotil 2.5-0.025 mg Tablet] 1 tab PO DAILY 11/10/20 [History] Fenofibrate Nanocrystallized [Fenofibrate] 145 mg PO DAILY 11/10/20 [History] Potassium Chloride ER [K-Dur 20] 20 meq PO DAILY 11/10/20 [History] Tiotropium 2.5 Mcg/Puff [Spiriva Respimat 2.5 Mcg] 2 puff INHALATION RT-DAILY 11/10/20 [History] Thiamine [Vitamin B-1] 100 mg PO DAILY #30 tab 11/17/20 [Rx] Gbowvyeuzoxlqm-GT-Wfuzvqdvzc [Folbic] 1 tab PO DAILY 08/15/22 [History] Donepezil [Aricept] 10 mg PO HS 08/15/22 [History] Losartan Potassium 100 mg PO DAILY 08/15/22 [History] Follow up Appointment(s)/Referral(s): Thaddeus Patel DO [Primary Care Provider] - 1-2 days Activity/Diet/Wound Care/Special Instructions: personal belongings locked in locker #17 (elopement risk) Discharge Disposition: - Preliminary Cause of Preliminary Cause of : Acute gastrointestinal bleed
[2022-08-20 08:55] LABS: Glucose,Whole Blood 101 mg/dL (70-110)
--- NOTE | 2022-08-23 12:35 | CDI ---
Documentation Clarification Form Date: 08/23/2022 11:49:50 AM From: Kinga Wei RN, CCDS Email: [email or web address] Admit Date: 08/15/2022 01:18:00 AM Patient Name: Adonis Reddy Visit Number: [id number] Discharge Date: 08/19/2022 09:30:00 AM ATTENTION: The Clinical Documentation Specialists (CDI) and [facility] Coding Staff appreciate your assistance in clarifying documentation. Please respond to the clarification below the line at the bottom and electronically sign. The CDI & [facility] Coding staff will review the response and follow-up if needed. Please note: Queries are made part of the Legal Health Record. If you have any questions, please contact the author of this message via ITS. Dr. Rossy Levy Patient with hypovolemia and GI bleed. Additional clarification is requested. Patient history/risk factors: daily alcohol use, COPD and early dementia. Came in with abdominal pain, NEVAEH, hypovolemia and GI bleed. Clinical Indicators: 08/17 Vital signs: BP 77/50, HR 131 08/14 Hgb 10.8, 08/17 Hgb 5.8 08/15 H&P: "hypotension, hypovolemia." 08/16 Surgery: "GI bleed and CAT scan suggesting probable peptic ulcer disease. Proceed with upper endoscopy." 08/17 Procedure: "Duodenal ulcer with no active bleeding. There was some old blood present within the duodenum and the stomach, however." 08/17 Critical care: "Because of ongoing bleeding, the patient was transferred to the intensive care unit on August 16. The patient has received or will receive 3 units of packed red blood cells. His hemoglobin this morning was 5.8." 08/18 Nursing Note: "patient having large red stool with clots, heart rate 120's, blood pressure 68/55, rate of blood transfusion increased and Dr. Arnett and Maria Esther notified on change in patient condition." 08/19 Discharge summary: "Patient began to experience hypotension with a blood pressure dropping into the 60s systolic as well as an increasing heart rate into the 120s. Patient was sent to the ICU for acute alcohol withdrawal delirium tremens and was maintained on Ativan and CIWA protocol. There is also evidence for acute GI bleed. Patient had 2 bloody bowel movements and for this reason he underwent EGD on 08/17/22 showing nonbleeding duodenal ulcer with high risk for rebleed." Treatment: 5 units PRBC's total, IVF's 1L bolus on 08/14 and 08/17 and 0.9 NS @50/hr, Protonix 40mg BID, surgery consult as above Please clarify if there is an additional diagnosis: [ ] Hypovolemic Shock [ ] Hemorrhagic Shock [ ] Other, please specify [ ] Unable to determine MTDD
--- NOTE | 2022-08-23 13:04 | CDI ---
Documentation Clarification Form Date: 08/23/2022 12:46:29 PM From: Kinga Wei RN, CCDS Email: [email or web address] Admit Date: 08/15/2022 01:18:00 AM Patient Name: Adonis Reddy Visit Number: [id number] Discharge Date: 08/19/2022 09:30:00 AM ATTENTION: The Clinical Documentation Specialists (CDI) and [facility] Coding Staff appreciate your assistance in clarifying documentation. Please respond to the clarification below the line at the bottom and electronically sign. The CDI & [facility] Coding staff will review the response and follow-up if needed. Please note: Queries are made part of the Legal Health Record. If you have any questions, please contact the author of this message via ITS. Dr. Kunal Díaz Acute Renal failure is documented in the progress notes. Additional clarification regarding the type of acute renal failure is requested. History/Risk factors: Abdominal pain, diarrhea, hypotension, hypovolemia, daily ETOH use Clinical Indicators: 08/14 BP 86/56, 108/69. 08/17 BP 72/54, 85/49 08/15 Na 127, 08/14 K+ 6.5 Patient presents with a BUN/CR and GFR: 33/1.63/41 Subsequent BUN/CR and GFR on 08/16: 28/0.98/77 Patients baseline CR: 1.0 from January 2022 Urinalysis: specific gravity 1.050, osmolality 478, urine random sodium <20L Treatment: 08/15 Nephrology Consult: "Acute kidney injury mostly prerenal from poor intake and diarrhea, improved with IV hydration. Creatinine 1.60 on admission and is 1.43 today. Baseline Cr near 1 from January 2022. No proteinuria on UA. No hydronephrosis noted on CAT scan. Hyponatremia from poor solute intake. Hypomagnesemia from poor intake. Hyperkalemia from acute kidney injury. Please clarify the type of acute renal failure, if known: [ ] Acute Renal Failure with Acute Tubular Necrosis [ ] Unable to determine [ ] Other, please specify MTDD
== END 2022-08-19 09:30 | disposition expired | DRG 377 ==
LOC: EC 19:46 → 3SCARD 08-15 01:18 → 5NMEDONC 08-15 13:14 → 2SICU 08-16 15:50
PROVIDERS: ADMIT Family Medicine; ATTEND Family Medicine
PROC: 30233N1 Transfusion of Nonautologous Red Blood Cells into Peripheral Vein, Percutaneous Approach (ICD-10-PCS; 2022-08-16)
PROC: 0DJ08ZZ Inspection of Upper Intestinal Tract, Via Natural or Artificial Opening Endoscopic (ICD-10-PCS; principal; 2022-08-17 07:30)
PROC: 05HB33Z Insertion of Infusion Device into Right Basilic Vein, Percutaneous Approach (ICD-10-PCS; 2022-08-17 08:30)
DX: K26.4 Chronic or unspecified duodenal ulcer with hemorrhage (principal); G92.9 Unspecified toxic encephalopathy; N17.9 Acute kidney failure, unspecified; E44.0 Moderate protein-calorie malnutrition; F10.131 Alcohol abuse with withdrawal delirium; E87.1 Hypo-osmolality and hyponatremia; E87.20 Acidosis, unspecified; D50.0 Iron deficiency anemia secondary to blood loss (chronic); E83.42 Hypomagnesemia; I95.9 Hypotension, unspecified; E86.0 Dehydration; R45.1 Restlessness and agitation; R19.7 Diarrhea, unspecified; E86.1 Hypovolemia; M41.85 Other forms of scoliosis, thoracolumbar region; R00.0 Tachycardia, unspecified; E87.5 Hyperkalemia; E87.6 Hypokalemia; Z51.5 Encounter for palliative care; Z66 Do not resuscitate; F03.90 Unspecified dementia, unspecified severity, without behavioral disturbance, psychotic disturbance, mood disturbance, and anxiety; F17.210 Nicotine dependence, cigarettes, uncomplicated; I10 Essential (primary) hypertension; J44.9 Chronic obstructive pulmonary disease, unspecified; R13.10 Dysphagia, unspecified; Z91.81 History of falling; Z28.21 Immunization not carried out because of patient refusal; Z71.3 Dietary counseling and surveillance; Z68.20 Body mass index [BMI] 20.0-20.9, adult
CPT/HCPCS: 36410; 36415; 43235; 71045; 71046; 72070; 72110; 74177; 76937; 80048; 80053; 81003; 82150; 82272; 83690; 83735; 83930; 83935; 84132; 84300; 84443; 85025; 85027; 85610; 86850; 86900; 86901; 86920; 87045; 87046; 87324; 93005; 94640; 96361; 96365; 96366; 96372; 96375; 96376; 99285